=== PATIENT | female | born 1955 | race Caucasian/White ===

== ENCOUNTER → 2020-02-28 14:11 | Outpatient (CLI) | payer OTHER, SELFPAY ==
[2020-03-02 06:42] LABS: COVID19 Sendout Not Detected (Not Detect)
== END ==
PROVIDERS: Family Provider Family Medicine; PCP Family Medicine; Visit Provider Physician Assistant
DX: Z01.812 Encounter for preprocedural laboratory examination (principal)
CPT/HCPCS: 87635

== ENCOUNTER 2020-03-02 09:11 | Inpatient (IN) | payer OTHER, SELFPAY ==
[2020-02-24 09:55] VITALS: BMI 23.3
[2020-03-02] VITALS (19 sets, daily range): BP systolic 97–156; BP diastolic 62–110; PULSE 76–101; RESP 8–21; TEMP 36–37.1; O2SAT 92–100; BMI 23.8
--- NOTE | 2020-03-02 | DI.RAD.S_ITS ---
PROCEDURE: XR LUMBAR SPINE 2-3V INDICATIONS: L5-S1 TLIF TECHNIQUE: 2 views of the lumbar spine were acquired. COMPARISON: MRI, lumbar spine, 12/04/2019. FINDINGS: There is discectomy and posterior fusion at L5-S1. There is a disc prosthesis. Pedicular screws and fusion rods are in appropriate position. IMPRESSION: Discectomy and posterior fusion at L5-S1. Dictated by: Lew Glaser M.D. on 03/02/2020 at 13:54 Approved by: Lew Glaser M.D. on 03/02/2020 at 13:55
--- NOTE | 2020-03-02 09:52 | PM.PREOP ---
Pre-operative Note COVID-19 COVID-19 status: Negative Result date/Date tested (Pos, Neg/Pending): 02/28/20 Interval Note History & Physical reviewed/Exam performed by Physician: Yes Changes to H&P: No
[2020-03-02] MEDS: LACTATED RINGERS 1,000 ML 42 ML IV (09:55)
[2020-03-02] MEDS: ACETAMINOPHEN 325 MG TABLET 975 MG PO (10:36)
[2020-03-02] MEDS: CLINDAMYCIN 600 MG/50 ML PIGGYBACK 50 MG IV ×2 (10:52→18:50)
--- NOTE | 2020-03-02 11:23 | SUR.OPER ---
Prone on spine table, head in foam head support, padded chest and pelvic supports, gel pad at knees, lower legs supported by pillows; nipples, genitalia and toes free of pressure, arms secured on foam padded arm boards at <90 degrees abduction. Tape over blanket at thigh secured to table.
[2020-03-02] MEDS: BUPIVACAINE 0.5% (PF) 20 ML, BUPIVACAINE LIPOSOME 266 MG INJ (11:30)
[2020-03-02] MEDS: THROMBIN (RECOMBINANT) 5,000 UNIT VIAL 5000 UNIT TOP (11:30)
[2020-03-02] MEDS: SODIUM CHLORIDE 0.9% 1,000 ML, GENTAMICIN 80 MG IRR (11:31)
[2020-03-02] MEDS: VANCOMYCIN 1,000 MG VIAL 1000 MG TOP (11:31)
--- NOTE | 2020-03-02 12:26 | PC.NURSE ---
Day shift: Pt not on AC unit at this time.
--- NOTE | 2020-03-02 12:45 | PM.OP.1 ---
Operative Date/Time/Diagnoses Date of procedure: 03/02/20 Time of procedure: 12:45 Pre-op diagnosis: Lumbar stenosis with radiculopathy History of lumbar fusion Post-op diagnosis: same Procedure & Clinicians Procedure: L5-S1 TLIF (posterior/posterior interbody fusion) with cage L5-S1 screws Removal of old L4-5 screws Iliac crest bone graft aspirate L5-S1 laminectomy Use of microscope Same procedure as scheduled: Yes Indications: [age] year old female with intractable pain from stenosis. They had failed conservative management and requested operative intervention. Risks and benefits of surgery were discussed and appropriate consents were obtained. Surgeon: Deion Holley Provider Network Manager: Marleny Francois Anesthesia Type: General Operative Notes Findings: None Closure Type: primary Specimen(s): none sent Prosthetic devices, grafts, tissues, transplants, or devices: NuVasive MAS Reline screws globus rise cage Applied: catheter Estimated Blood Loss (mL): 20 Procedure in detail: The patient was brought to the operating room and intubated on the table. A time-out was performed. They were then rolled over to the well-padded Marquis table in the prone position. Preoperative antibiotics were given. The back was prepped and draped in the standard sterile fashion. Using fluoroscopy, a 4 cm longitudinal incision was made to the well-marked left of the midline. We used Bovie to come down to and split the lumbodorsal fascia. We exposed her old screws at L4 and L5 and then removed them. They were well fixed with no loosening. Using fluoroscopy and monitoring, we then percutaneously placed Jamshidi needles down the pedicles of L5 and S1 on the left side. These were changed out to guidewires and then we tapped and then placed the NuVasive MAS Reline screw shanks. We went up a size and used a 7.5 screw at L5, they were 6.5 mm screws at the rest. We then opened up the retractors and used Bovie to clear up the posterolateral gutter as well as medially along the lamina to the spinous processes. A bur was used to decorticate the sacral ala and the transverse process and bony fusion mass at L5. We brought in the microscope. Using a combination of bur and Kerrison rongeurs, a laminectomy was performed from the left side. We cleared over past the midline and carefully depressed the dura until we were able to decompress the opposite side. We cleared out the neural foramen, requiring a facetectomy to adequately open this up. We then began the TLIF prep. We carefully cleaned up the remainder of the foramen until we could easily retract the exiting root as well as clearing medially below the dura and expose the disc space. The disc was prepped with bipolar and then an annulotomy was performed. We performed a diskectomy using a combination of paddles, shai, pituitaries, and curettes. We distracted the disc using a paddle and locked the retractor in an open position. We then filled the disc space with Osteocel bone graft. We then placed the globus Rise cage under fluoroscopy and then filled this in with more bone graft. The distraction on the retractor was released to compress down. This completed the posterior interbody fusion portion of the TLIF at L5-S1. We then placed the screw heads, ankita, and locked down the set screws. The wound was copiously irrigated. A small stab incision was made over the PSIS. We used a Jamshidi needle to aspirate several mL of bone marrow from the pelvis. This was mixed with the remaining Osteocel and combined with all of the locally harvested bone graft and placed in the posterolateral gutter for the posterior fusion of the TLIF at L5-S1. The muscle fascia was closed. The epidural catheter was then injected without resistance and the catheter was pulled. We then went to the opposite side. Again using fluoroscopy, a 3 cm incision was made and Bovie was used to come down to split the fascia. Using neural monitoring and fluoroscopy, Jamshidi needles were advanced down the pedicles of L5 and S1 on the right side. These were switched over guidewires, tapped, and screws placed. We then placed a ankita and locked the set screws on this side. The wound was irrigated. The fascia was closed. Vancomycin powder was placed in the wounds. The superficial and skin were closed. A sterile dressing was placed. The patient was then rolled over extubated and brought to recovery room without complications. Complications: none Post-operative Condition: stable Disposition: PACU Plan for aftercare: Up with physical therapy. Anticipate 2-3 days in the hospital.
--- NOTE | 2020-03-02 13:01 | P.OP_ITS ---
Operative Date/Time/Diagnoses Date of procedure: 03/02/20 Time of procedure: 13:30 Pre-op diagnosis: Severe right knee OA Post-op diagnosis: same Procedure & Clinicians Procedure: Right total knee arthroplasty Same procedure as scheduled: Yes Indications: The patient has had progressively worsening right knee pain with radiographic changes consistent with arthritis. Non-operative management has failed and the patient has requested total knee replacement. The risks, benefits and alternatives to surgery were discussed with the patient prior to proceeding. Risks discussed included, but were not limited to, failure to relieve pain, stiffness, infection, nerve damage, deep venous thrombosis, pulmonary embolism, stroke, coma, heart attack, permanent paralysis and , as well as the potential need for eventual revision of the prosthetic. Surgeon: Gracie Miller Valve Assembler: Aldo Carroll Anesthesia Type: General and Spinal Operative Notes Findings: Severe right knee OA, good stability, adequate bone Closure Type: primary Specimen(s): none sent Estimated Blood Loss (mL): 250 Blood products transfused: none Procedure in detail: The patient was seen in the pre-operative area, where the patient identified the right knee as the operative site and this was marked with my initials. The patient received pre-operative antibiotics, and was taken to the operating room and placed on the operative table in the supine position. After satisfactory anesthesia, a multimedia specialist out? was performed. The right leg was encircled with a tourniquet about the proximal thigh, and the leg was prepared from the toes to the tourniquet with ChloroPrep in the usual fashion and draped through sterile drapes. The leg was elevated and exsanguinated with Eschmark bandage and the tourniquet inflated to [250] mmHg pressure. The knee was approached through an approximately 18 cm incision centered over the patella and carried into the knee through a medial parapatellar arthrotomy. Portion of the medial and lateral meniscus was resected. Soft tissue was carefully mobilized around the patella the patella was measured with a caliper. Bone was resected from the patella and the patellar height was reconstituted with up an appropriate sized patellar component. For a cover was then placed on the patella. A small amount of additional medial and lateral meniscus was resected. The visionary guide fit well to the distal femur. It looked like an appropriate distal femoral cut and the cut was made without difficulty. The rotation was assessed and the appropriate size femoral guide was placed on the distal femur and finishing cuts were made. There is no evidence of notching. The anterior, posterior and chamfer cuts were then made. The posterior osteophytes and soft tissues were then removed. The posterior capsule was injected with part of a mixture of 60 ml 0.25% Marcaine mixed with 20 ml Exparel for post operative pain control. The remainder of this mixture was injected into the capsule and subcutaneous tissues during cement curing. The tibia was prepared and the visionaire guide fit well to the distal tibia. The rotation was assessed. The patient was placed in extension residual medial and lateral meniscus as well as any residual bone was carefully resected. [No] additional tibia was resected. Hemostasis was achieved especially posteriorly. Additional local was injected into the posterior capsule. The extension gap was assessed and additional releases for gap balancing were performed as necessary. It was checked with the gap family living educator. The femoral component was trial was placed and the notch was finished. Trial tibial and femoral components were then placed and the knee placed through a range of motion. Range of motion was [0-130], with good stability throughout the range. The trials were then removed, and the tibia was finished. The bone was prepared with pulsatile lavage, and dried with a sponge. Cement was applied and the final prosthetics placed. Excess cement was removed during and after cement curing. A brief Betadine soak was performed. After confirming there was no extruded cement posteriorly, the final tibial insert was placed. The knee was copiously irrigated and the tourniquet deflated. Hemostasis was obtained with the [Aquamantys system]. A drain was placed and brought out superolaterally. The capsule was closed with interrupted # 1 black braided suture. The subcutaneous layer was closed with barbed sutures, and the skin with a running 3-0 V-Lock suture and Surgical glue. An Aquacel Ag dressing was applied and the patient was taken to recovery having tolerated the procedure well. Complications: none Post-operative Condition: stable Disposition: Acute Care Plan for aftercare: The patient will be maintained on a standard total knee replacement protocol with weight bearing as tolerated. The patient will receive aspirin and sequential compression devices for DVT prophylaxis. The patient will be discharged home when safe for the home environment.
--- NOTE | 2020-03-02 13:01 | PM.PREOP ---
Pre-operative Note COVID-19 COVID-19 status: Negative Interval Note History & Physical reviewed/Exam performed by Physician: No Changes to H&P: No
[2020-03-02] MEDS: LORazepam 2 MG/ML INJ 0.5 MG IV ×2 (13:09→14:16)
[2020-03-02] MEDS: hydrOXYzine 50 MG/ML INJ 25 MG IM (13:09)
[2020-03-02] MEDS: HYDROMORPHONE 2 MG INJ IV ×2 (13:17→13:26)
--- NOTE | 2020-03-02 14:12 | SUR.PHASEI ---
report called to Viki
[2020-03-02] MEDS: OXYCODONE IR 5 MG TABLET PO (14:18)
--- NOTE | 2020-03-02 14:18 | SUR.PHASEI ---
Patient teary, saying I can't do this. Medicated with Lorazepam and Oxycodone. Repositioned, ice pack applied. Will continue to monitor.
--- NOTE | 2020-03-02 14:25 | SUR.PHASEI ---
patient resting calmly, eyes closed.
--- NOTE | 2020-03-02 14:44 | PC.NURSE ---
Day shift: Pt on AC unit from PACU at approx 1435. Pt is in obvious pain and discomfort. Pt medicated for pain per MAR in PACU both IV and oral. VS WNL. Dressing is CDI. Pt does have some redness on her upper chest from position during surgery (per COLLAR CLOSER LOCKSTITCH). SCD's in place. Willett is patent. Emptied approx 1200ml clear yellow just now. Placed on cont O2 monitor because of the amount of pain meds Pt has had. Oriented to room and call light. Bed alarm is on and call light in reach.
--- NOTE | 2020-03-02 14:50 | SUR.PHASEI ---
Patient transferred to the floor with belongings bag. IV saline locked. Dressing checked with RN. Patient moving arms and legs independently. Awake and chatting during transfer. Report given to Viki. vS stable.
--- NOTE | 2020-03-02 15:12 | SUR.OPER ---
PT. has some redness on her buttocks; observed after positioning patient in prone position on spine table.
[2020-03-02] MEDS: PROMETHAZINE 25 MG TABLET PO ×3 (15:45→21:01)
[2020-03-02] MEDS: OXYCODONE IR 10 MG TABLET PO (15:46)
[2020-03-02] MEDS: ALPRAZolam 0.25 MG TABLET PO (15:46)
[2020-03-02] MEDS: BACLOFEN 10 MG TABLET PO ×2 (15:46→21:01)
[2020-03-02] MEDS: HYDROMORPHONE 0.5 MG INJ IV ×3 (15:47→21:01)
[2020-03-02] MEDS: LACTATED RINGERS 1,000 ML 125 ML IV ×2 (15:50→23:39)
[2020-03-02] MEDS: OXYCODONE IR 5 MG TABLET 15 MG PO ×2 (18:49→23:39)
--- NOTE | 2020-03-02 19:00 | PC.NURSE ---
1844 - Called to patient room by RN, Bibi. She reports that the patient is having pain control issues, is having some periods of confusion and is receiving pain medication as ordered. However, Bibi is concerned that the patient had medication in her purse and in confusion may possibly take addition medicines. Bibi reports an attempt to review medication, but the patient clutched her purse next to her and declined. I approached the patient to educate her to hospital policy on the need to have medications locked. The patient is tearful and agitated. She is expressing that her pain is not controlled. She states that no medication where given post operatively, and states I can feel everything. The patient also made a confused statement about being transferred post operatively to the ER where they promised me diluadid, but that (expletive) nurse wouldn't give it to me. The patient was eventually agreeable to provide her medications out of her purse, which were sent to pharmacy. She continued to be tearful. I reviewed her pain medications and dose times, showing her to the times Bibi had written on the patient dry erase board. Bibi was obtaining currently available meds at this time. The patient reported her pain as [address] and [address]. Holley promised it wouldn't be like this, this time. Attempted to provide reassurance that efforts were being made to control her pain. The patient then stated that she didn't want to talk with me any further. I exited the room per the patient request.
[2020-03-02] MEDS: DOCUSATE 100 MG CAPSULE PO (21:00)
[2020-03-02] MEDS: BISACODYL 5 MG TABLET 15 MG PO (21:00)
[2020-03-02] MEDS: SIMVASTATIN 40 MG TABLET PO (21:01)
[2020-03-02] MEDS: ALPRAZolam 0.5 MG TABLET PO (21:01)
[2020-03-02] MEDS: SENNOSIDES 8.6 MG TABLET 17.2 MG PO (21:01)
[2020-03-02] MEDS: FLUTICASONE 120 SPRAY/16 GM SPRAY.SUSP NASAL (21:02)
[2020-03-02] MEDS: diphenhydrAMINE 25 MG TABLET 50 MG PO (23:48)
[2020-03-03] MEDS: HYDROMORPHONE 0.5 MG INJ IV ×6 (00:10→07:44)
--- NOTE | 2020-03-03 03:00 | PC.NURSE ---
Addendum entered by Faith Houston R.N. 03/03/20 04:40: 0430 - pt's dressing had become damp from an ice pack. Pt pulled dressing off stating, I told you this would happen, I should never have had an ice pack. Dressing replaced w/coversite. While moving pt, she was reminded to log roll and move slowly. Pt became agitated while she was having her bedding adjusted and abruptly jerked herself into an upright position. When reminded again to move carefully, the patient stated, I'm fine! I know how to move. Original Note: Greeted pt at start of shift, pt pleasant and conversant. States pain is around an 8. Allowed skin check w/Senia (charge nurse) - pt cooperative. Within half an hour, pt was tearful, agitated and anxious - requesting pain medication. 15mg of Oxycodone was given. Within 15 minutes pt was crying out, increasingly agitated and angry stating her pain was not being addressed and that she needed medication for nausea. Pt stated that she was not currently nauseous, but, always gets sick when I get pain medication. I should have orders for Promethazine, don't give me that other stuff, it's like water. It was explained that she had already received a dose of nausea medication and that I would bring her IV Dilaudid. Upon giving her IV pain medication, the patient continued to complain loudly, stating, I was told it wouldn't be this way again. This is supposed to be a good hospital and everyone is ignoring me. Pt has not had an observed moment of nausea or vomiting. At this point this RN had been in the patients room multiple times along with visits from the charge nurse and the DIFFERENTIAL REPAIRER. The patient also complained that she couldn't find her Biotine, stating that, someone probably took it or threw it away and you owe me 15 dollars because it's gone. This RN and the DIFFERENTIAL REPAIRER looked throughout the room and couldn't find her bottle of Biotine.
[2020-03-03] MEDS: CLINDAMYCIN 600 MG/50 ML PIGGYBACK 50 MG IV (03:14)
[2020-03-03] MEDS: OXYCODONE IR 5 MG TABLET 15 MG PO ×6 (03:22→23:03)
[2020-03-03 04:50] VITALS: BP 123/82; PULSE 79; RESP 16; TEMP 36.8; O2SAT 97
[2020-03-03] MEDS: SUMAtriptan 25 MG TABLET 100 MG PO (04:56)
[2020-03-03] MEDS: ACETAMINOPHEN 325 MG TABLET 975 MG PO ×2 (04:58→10:49)
[2020-03-03] MEDS: PANTOPRAZOLE 40 MG TABLET PO (06:29)
[2020-03-03] MEDS: LEVOTHYROXINE 125 MCG TABLET PO (06:29)
[2020-03-03 06:47] LABS: Hematocrit 26.8 % (36-46)
[2020-03-03] MEDS: PROMETHAZINE 25 MG TABLET PO ×4 (07:41→21:07)
[2020-03-03] MEDS: BACLOFEN 10 MG TABLET PO ×3 (07:41→21:07)
[2020-03-03] MEDS: ASPIRIN 325 MG TABLET PO (07:41)
[2020-03-03] MEDS: FUROSEMIDE 20 MG TABLET PO (07:42)
[2020-03-03] MEDS: POTASSIUM CHLORIDE 10 MEQ TAB PO (07:42)
[2020-03-03] MEDS: LORATADINE 10 MG TABLET PO (07:42)
[2020-03-03] MEDS: SPIRONOLACTONE 25 MG TABLET PO (07:42)
[2020-03-03] MEDS: MAGNESIUM OXIDE 400 MG TABLET 800 MG PO (07:42)
[2020-03-03] MEDS: LOSARTAN 50 MG TABLET 100 MG PO (07:42)
--- NOTE | 2020-03-03 07:42 | PM.PNPO.1 ---
Subjective Subjective Date Patient Seen: 03/03/20 Time Patient Seen: 07:42 Interval history: She had a very rough night. She got behind on her pain yesterday and was up all night with IV supplementation and finally her pain is under moderate control. Pain is about a 7 to 8/10. All across the back. Her dressing had to get changed earlier as her ice pack that soak through everything. Exam Vital Signs (past 8 hours): - 03/03/20 04:50 Temperature 98.3 F Pulse Rate 79 Respiratory Rate 16 Blood Pressure 123/82 Pulse Oximetry 97 Oxygen Delivery Method Nasal Cannula Oxygen Flow Rate 0 Const Orientation: alert and oriented x3 Back/Spine/Pelvis Other: CDI. 5/5 motor both lower extremities. Objective Labs Result Diagrams: 03/03/20 06:38 Labs: Laboratory Results - last 24 hr 03/03/20 06:38 Hgb 9.0 L Hct 26.8 L Assessment & Plan Post-op Postoperative Procedures: Procedures Operation Date: 03/02/20 10:45 Actual Procedures Side Surgeon p L5-S1 laminectomy & instrumented fusion (TLIF) w/bone graft,removal old L45 screws Deion Holley MD she had a rough night but is headed in the right direction at this point. She reports that she has done well with oral Dilaudid in the past and I am going to add this for pain control now. With her preoperative narcotic tolerance and significant anxiety and pain, she will be an inpatient for at least 2 more days prior to going home Quality VTE Deep Vein Thrombosis/Pulmonary Embolism Present on Admission: No
[2020-03-03] MEDS: FLUTICASONE 120 SPRAY/16 GM SPRAY.SUSP NASAL ×2 (07:43→21:08)
[2020-03-03] MEDS: DOCUSATE 100 MG CAPSULE PO ×2 (07:43→21:08)
[2020-03-03] MEDS: CHOLECALCIFEROL (VITAMIN D3) 5,000 UNIT TABLET 10000 UNIT PO (07:43)
[2020-03-03 07:57] VITALS: BP 144/96; PULSE 77; RESP 20; TEMP 37.2; O2SAT 95
[2020-03-03] MEDS: ALPRAZolam 0.25 MG TABLET PO ×2 (07:57→15:02)
[2020-03-03] MEDS: ESTROGENS, CONJUGATED 0.625 MG TABLET 1.25 MG PO (08:04)
[2020-03-03] MEDS: HYDROMORPHONE 4 MG TABLET PO ×4 (08:57→21:06)
--- NOTE | 2020-03-03 10:34 | PC.NURSE ---
Addendum entered by Arianne Main R.N. 03/03/20 12:12: Pt reports 9/10 pain to lower back after working with PT. Pt states that her pain level decreased to 6/10 for a short period of time then increased to 7/10. Stays around 7-8/10. Addendum entered by Arianne Main R.N. 03/03/20 10:56: Reinforced to pt she needs to slow down, think about what shes doing before taking the action, the staff has the best interests for taking care of her. Pt states it probably wasn't that girls fault, it was probably mine. Support and encouragement provided. Original Note: Day Shift- This Am, pt cooperative with care, very anxious, teary while talking with Dr. Holley this AM around 0730. Very talkative, can be re-directed to conversation with this write but needing to be interrupted most times to get back on track of topic at hand. Pt refused to demonstrate incentive spirometer use, this RN instructed pt on benefits and risks of use while in the hospital and at home. LLE weaker compared to RLE while performing leg lifts in bed. Denies numbness or tingling. Foot SCD's on to Bilateral feet. Pt able to demonstrate ankle waves. Pt reports pain 7-8/10 to across lower back area. Pain management plan discussed at length, Dr. Holley added prn pain med this AM. PRn Dilaudid po given X1, PRN Oxycodone given X1, and PRN Dilaudid IV X1. Pt states get nauseated with pain meds, pt is on scheduled Phenergan po per Dr's order. At 1030, DATA INTEGRITY CONSULTANT assisted pt to bedpan, pt did not ask for assist to get off bedpan, pt removed bedpan from underneath her by herself. DATA INTEGRITY CONSULTANT checked in on pt and was explaining to not twist and there are certain post op precautions in place in order to prevent injury to surgical site area. According to DATA INTEGRITY CONSULTANT, pt moved herself in bed, was twisting at waist level and did not want to further adjust herself.
[2020-03-03 11:10] VITALS: BP 144/101; PULSE 82; RESP 20; TEMP 36.6; O2SAT 93
--- NOTE | 2020-03-03 11:14 | PT.IIE ---
Current Diagnoses Spinal stenosis, lumbar region with neurogenic claudication (03/02/20) Strain of muscle, fascia and tendon of lower back, subsequent encounter (03/02/20) Arthrodesis status (03/02/20) Surgery Performed Operation Date: 03/02/20 10:45 Actual Procedures p L5-S1 laminectomy & instrumented fusion (TLIF) w/bone graft,removal old L45 screws - Deion Holley MD Surgical History (Last Updated 02/24/20 @ 10:48 by Aminta Shannon RN) Anesthesia (Acute) H/O ventral hernia repair (Acute) History of appendectomy (Acute) History of arthroplasty of right knee (Acute 01/2019) History of bilateral salpingo-oophorectomy (Acute) History of section (Acute) History of cholecystectomy (Acute) History of colonoscopy (Acute) History of reduction mammoplasty (Acute) History of spinal surgery (Acute ~2015) History of tonsillectomy (Acute) History of total abdominal hysterectomy (Acute) Medical History (Last Updated 03/02/20 @ 10:31 by Carmen Byrd RN) ADHD (Acute) Allergies (Acute) Anemia (Acute) Ankle pain (Acute) Anxiety (Acute) Benign familial tremor (Acute) Cervical somatic dysfunction (Acute) Cervical spine disease (Acute ~2014) Chicken pox (Acute) Chronic lumbar pain (Acute) Chronic neck pain (Acute) Cranial somatic dysfunction (Acute) Depression (Acute) Diverticular disease (Acute) Dry skin (Acute) Fibromyalgia (Acute) Glaucoma (Acute) Headache (Acute) History of falling (Acute) Hyperlipidemia (Acute) Hypertension (Acute) Irritable bowel syndrome (Acute) Kidney disease (Acute) Measles (Acute) Migraine headache (Acute) Osteoarthritis (Acute) Pelvic somatic dysfunction (Acute) Postnasal drip (Acute) Recurrent sinusitis (Acute) Recurrent sinusitis (Acute) Rheumatoid arthritis (Acute) Segmental and somatic dysfunction of abdomen and other regions (Acute) Segmental and somatic dysfunction of lumbar region (Acute) Segmental and somatic dysfunction of sacral region (Acute) Segmental and somatic dysfunction of thoracic region (Acute) Segmental dysfunction of rib cage (Acute) Vertigo (Acute) Vision disorder (Acute) Physical Therapy Inpatient Evaluation/Re-Eval M1 PT/OT-IP Prior Functional Status Start: 03/03/20 12:14 Freq: NEEDED Status: Active Protocol: Document 03/03/20 11:14 AB (Rec: 03/03/20 12:39 AB [id number]) Medical Review Prior Functional Status Medical History Reviewed Yes Communication able to make needs known Mobility and Gait pt stated that she is modified independent with all mobilities and ambulation without AD Social History Household Members significant other Living Arrangements Apartment/Condo Number of Floors (Floors) One Floor Number of Stairs To Enter/Railing? no steps to enter Home Environment Standard Height Toilet,Tub/ Shower Home Equipment Front Wheel Walker,Shower Seat with Backrest,Grab Bars In Shower Additional Social History Comment pt has a toilet safety frame M2 PT-IP Current Condition Start: 03/03/20 12:14 Freq: NEEDED Status: Active Protocol: Document 03/03/20 11:14 AB (Rec: 03/03/20 12:39 AB [id number]) Physical Therapy Current Condition Current Condition Evaluation Date 03/03/20 Treatment Diagnosis s/p L5S1 TLIF/lami; difficulty in walking Onset Date 03/02/20 Precautions Lumbar Precautions Log Roll,No Twisting,Limit Bending,Lifting Restriction of 10 lbs,Gait Belt above Incisional Area M3 PT-IP Subjective Start: 03/03/20 12:14 Freq: NEEDED Status: Active Protocol: Document 03/03/20 11:14 AB (Rec: 03/03/20 12:39 AB [id number]) Subjective Physical Therapy Visit Type Type Initial Evaluation Visit Start Time 11:14 Visit Stop Time 12:04 Total Visit Minutes 50 Number of FILM AND VIDEO EDITOR Visits 0 Physical Therapy Visit Comments Patient Comments pt initially refused PT and c/ o back pain. nurse gave pt pain meds. PT checked on pt after ~30 min. pt agreed to do PT but towards the end of PT session, stated that she does not want to do PT and wants to go back to bed. Therapy Pain Assessment Pain When Pain Assessed At Rest Pain Present Pain Present Pain Reported Location back Intensity 7 Scale Used Numeric (0 - 10) Pain Management Techniques Distraction,Re-positioning, Timing of Activity with Medications M4 PT-IP Mobility and Gait Start: 03/03/20 12:14 Freq: NEEDED Status: Active Protocol: Document 03/03/20 11:14 AB (Rec: 03/03/20 12:39 AB [id number]) PT-Bed Mobility Assessment Rolling Type of Rolling Log Rolling Level of Assist Maximal Assistance,1 Person Assistance Supine to Sit Supine to Sit Maximum Assistance,1 Person Assistance Sit to Supine Sit to Supine Standby Assistance,1 Person Assistance PT-Transfer Assessment Sit to and From Stand Sit to and from Stand Contact Guard Assistance Equipment Transfer Assistive Device Gait Belt,Front Wheeled Walker Orthotic/Prosthetic Devices or Brace: No Transfers Transfer Destination Bed,Chair Transfer Technique ambulated using FWW Transfer Ability Level of Assist Contact Guard Assistance, Minimal Assistance,1 Person Assistance,Use of Upper Extremities Comments Mobility Comments reviewed back precautions and log roll bed mobility with pt and pt requires cues to recall . pt completed supine to sit max A and max cues. c/o increase back pain. was able to sit on EOB SBA. completed sit to stand CGA and ambulated in room ~ 25 ft using FWW CGA to min A. pt initially agreed to sit on chair. c/o increase back pain and stated that chair is not comfortable. initially agreed to stay up on the chair but keeps going on regarding her pain meds and her cold food. pt stated that she wants to go back to bed. PT was setting up pt's bed but pt just stood up without AD and stand pivot transfer to bed. pt is impulsive. pt completed sit to supine SBA but did not adhere to her back precaution. reminded pt on how to do log roll prior to execution but pt directs her own care and is getting agitated when instructed on log roll bed mobility. positioned pt in bed. call light and table placed within reach. Gait Assessment Gait Gait Assistance Required: Contact Guard Assist,Minimum Assistance Distance (Feet) 25 Able to Maintain Weight Bearing Status Yes During Gait Assistive Devices Assistive Device Gait Belt,Front Wheeled Walker Orthotic/Prosthetic Devices or Brace: No Gait Deviations General Gait Pattern Antalgic,Decreased Stride Length,Decreased Feet Clearance,Step-to Gait Factors Limiting Gait Function Factors Limiting Gait Function Decreased Activity Tolerance, Decreased Strength,Limited Range of Motion,Pain,Poor Balance,Poor Safety Awareness PT-Balance Assessment Sitting Balance and Reactions Static Sitting Balance Ability Good Dynamic Sitting Balance Ability Good Standing Balance and Reactions Static Standing Balance Ability Fair Dynamic Standing Balance Ability Fair Device Used using FWW M5 PT-IP Objective Assessments Start: 03/03/20 12:14 Freq: NEEDED Status: Active Protocol: Document 03/03/20 11:14 AB (Rec: 03/03/20 12:39 AB [id number]) Orientation Orientation/Cognition Level of Alertness Alert Orientation Name,Place,Situation Safety Awareness Decreased Safety Awareness Gross Range of Motion Lower Extremity ROM Assessment Within Functional Limits Strength Lower Extremity Strength Assessment Left Impaired Knee 3+/5 Muscle Tone Muscle Tone WNL Yes M6 PT-IP Treatment Start: 03/03/20 12:14 Freq: NEEDED Status: Active Protocol: Document 03/03/20 11:14 AB (Rec: 03/03/20 12:39 AB [id number]) Physical Therapy Treatment Education Education Provided Precautions,Weight Bearing Status,Post-Op Packet,Safety M7 PT-IP Assessment and Plan Start: 03/03/20 12:14 Freq: NEEDED Status: Active Protocol: Document 03/03/20 11:14 AB (Rec: 03/03/20 12:39 AB [id number]) PT Summary Assessment and Plan Potential Rehabilitation Potential Fair Status of Condition at Evaluation Evolving Summary Impairments Pain,ROM,Strength,Balance, Coordination,Sensation,Tone, Cognition,Bed Mobility, Transfers,Gait,Activity Tolerance Assessment Summary pt c/o increase pain on low back and tends to direct her own care. educated on precautions and safety and understood but is impulsive and get agitated when instructed. pt also gets distracted easily affecting safety awareness. pt plans to go home with her boyfriend to assist her. Goals Bed Mobility Goal Independent Transfer Goal Independent,Front Wheeled Walker Gait Goal Independent,Front Wheel Walker Gait Distance 150 Days to Meet Goals 5 Frequency of Treatment Frequency Of Treatment Twice a Day Treatment Plan Physical Therapy Treatment Plan Bed Mobility Training,Transfer Training,Gait Training, Therapeutic Exercise,Balance Retraining,Post Op Education, Discharge Planning,Hot or Cold Pack,Neuromuscular Re-ed, Coordination Retraining,Manual Therapy Recommendations To Nursing Amount of Assist Needed 1 Person Assist Discharge Recommendations PT Discharge Recommendations Home with Assistance Transportation Needs at Discharge Private Vehicle
--- NOTE | 2020-03-03 12:31 | CM.DANOTE ---
Patient is a 64 year old female who was admitted on 03/02/20 for TLIF. Pt has [facility] for insurance and his PCP is Dr. Judah Tristan. EMR was reviewed. Per Ortho , pt had surgery yesterday and has had pain management issues overnight and seems to be somewhat better managed with pain this morning but not ready for d/c yet. Pt with hx of anxiety, depression, PTSD. PT/OT ordered and pending. SW met bedside with pt and explained role and pt appears quite tearful and anxious and states that her pain causes her anxiety when not managed and she apologizes about coming across as cranky and upset. Difficult to keep pt on topic but redirectable. Pt confirms that her last back surgery was in 2017 here at [facility] and was able to d/c home with adult Dtr assist although in 2017 pt seemed to have her baseline of anxiety and impulsivity with some PT/OT concerns with following precautions. Pt states that her relationship with her adult Dtr has deteriorated but that she now has Sig Other that plans to provide transport and assist at d/c. Pt states she has used HH in the past but did not find it very helpful and states her plan is home with Sig Other assist and to continue her home PT exercises as she feels she can manage well when pain under control. Long hx of chronic pain and medication that she has created a good home routine for better management of pain. Plan: SW to follow closely after PT/OT initial eval and recommendations to determine if pt's plan of home with Sig Other assist is a safe option. Pt has hx of impulsivity and anxiety that contribute to potential d/c needs. MELANIE Milton Discharge Planning/Care Management CM Discharge Assessment Start: 03/03/20 12:29 Freq: Status: Active Protocol: Document 03/03/20 12:29 BF (Rec: 03/03/20 12:31 [id number]) Discharge Planning Assessment Assigned Package Dye Stand Loader MELANIE Workman DPOA/Assigned Designee Name none Advance Directives? No History Provided By Patient,Medical Record Has Patient been admitted in last 30 No days? Prior Living Arrangements Apartment/Condo Household Members significant other Type of transporation used prior to Relies on Others admit Independent with ADL's Yes: mostly Is patient alert and oriented? Yes Needs Assistance With Meal Prep,Home Chores / Shopping Caregiver for Another No Comment Pending PT/OT initial eval and recommendations Barriers to Discharge No Discharge Plan Home with Home Health Transportation Arrangement Sig Other plans to provide transport home at d/c. Additional Comment Waiting for PT/OT initial eval and recommendations Whiteboard Updated in Patient Room with Yes name and ext. # of Package Dye Stand Loader Review Status In Process Please Provide Date Initial DC 03/03/20 Assessment Was Performed Next Review Type Continued Stay Review Pre-Anesthesia Assessment Start: 02/24/20 09:55 Freq: Status: Complete Protocol: Document 02/24/20 09:55 CAB (Rec: 02/24/20 11:52 CAB [id number]) Pre-Anesthesia Assessment PAC Comment Pt with high anxiety, easily agitated when going over medications/allergies, I'm having a panic attack going over these. Patient Information Reviewed Via Phone Assessment Assessment Completed With Patient Diagnostic Results BMP/CMP,CBC,EKG Comment Outside Labs/EKG scanned to record-COVID screen @ Primary Care Provider Judah Tristan Medical Clearance Received Yes Seen Specialist in Last 12 Months Yes Specialist Seen Orthopedist,Other Comment PCP clearance scanned to record Primary Language [place] Islander Internal Sales Required No Height 157.48 cm Weight 58.06 kg Body Mass Index (BMI) 23.3 Hearing Ability Normal Visual Assist Glasses Dentition Type Teeth, Natural Present,Dental Implants Barriers to Learning Emotional Comment High anxiety Hx Anesthesia Reactions Yes: PONV Hx Family Anesthesia Reaction No Hx Malignant Hyperthermia No Hx Blood Transfusions Yes: 2009 r/t anemia Hx Blood Transfusion Reaction No Anesthesia Review Requested Yes: Reviewed prior to being scheduled Additional comment Anesthesia review scanned to record alcohol intake former Smoking Status Former smoker how long ago did patient quit smoking Quit 08/1999 Substance Use Type former substance user, marijuana Comment Advised not to smoke marijuana 24 hours prior, narcotic addiction 2009 Pain Present Pain Reported Musculoskeletal Symptoms Abnormal Gait,Back Pain, Difficulty Walking,Joint Pain, Neck Pain,Radiating Pain into Limb History of Falling (Recent or History of Yes ) Patient is completely paralyzed or No completely immobile Mental Status Oriented to own ability Is patient on oxygen? No Does patient have GARRIDO/SOB Yes: Occasional w/seasonal allergies Hx Sleep Apnea No Currently Taking a Beta Dipti No Hx Chest Pain No Hx SOB Yes: Occasional w/seasonal allergies Hx Syncope or Dizziness No Anti-Coagulant Therapy No Has a Legal Billing Clerk No Cardiac Testing No Hx Pacemaker/ICD No Pacemaker Rep Required? 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 Marital Status Single Lives With significant other Prior Living Arrangements Apartment/Condo Support System Significant Other Does the Patient Have Assistance After Yes Surgery Patient Discharge Plan Description Return Home Comment Pt advised 2 day length of stay per surgeon Feels Safe in Current Environment Yes Been Physically Hurt or Threatened By a No Person in Current Environment Do you have thoughts of harming yourself None or others? Are you currently considering suicide? No Do you have a plan to hurt yourself or No Plan others? Do You Have Any Spiritual Beliefs That No May Affect Your HC Choices? Do You Have Any Cultural Practices That No May Affect Your HC Choices? Comment Orthodox Who Can We Speak to About Patient's Care Family, friends Identifying Code for Release of Patient Declines to issue Information Health Care Proxy/Next of Kin Estelle (daughter) Health Care Proxy Emergency Contact Name Estelle (daughter) Nitish (S.0.) Emergency Contact Phone Number Estelle: [phone] Nitish: [phone] Advance Directives? No Power of Waiter/Waitress Captain No PAC Instructions Durable medical equipment, Medications to take/avoid, Nasal antibiotic,No ETOH/ petroleum product on skin DOS, NPO,Pre-surgical wash,Sturdy shoes/comfortable clothes,Do not bring valuables and remove jewelry
--- NOTE | 2020-03-03 13:56 | PT.IPTN ---
Current Diagnoses Spinal stenosis, lumbar region with neurogenic claudication (03/02/20) Strain of muscle, fascia and tendon of lower back, subsequent encounter (03/02/20) Arthrodesis status (03/02/20) Surgery Performed Operation Date: 03/02/20 10:45 Actual Procedures p L5-S1 laminectomy & instrumented fusion (TLIF) w/bone graft,removal old L45 screws - Deion Holley MD Physical Therapy Treatment Note M2 PT-IP Current Condition Start: 03/03/20 12:14 Freq: NEEDED Status: Active Protocol: Document 03/03/20 13:24 TP (Rec: 03/03/20 15:08 TP [id number]) Physical Therapy Current Condition Precautions Lumbar Precautions Log Roll,No Twisting,Limit Bending,Lifting Restriction of 10 lbs,Gait Belt above Incisional Area M3 PT-IP Subjective Start: 03/03/20 12:14 Freq: NEEDED Status: Active Protocol: Document 03/03/20 13:24 TP (Rec: 03/03/20 15:08 TP [id number]) Subjective Physical Therapy Visit Type Type Treatment Note Visit Start Time 13:24 Visit Stop Time 13:56 Total Visit Minutes 32 Notes Student PRIMITIVO Chowdhury supervised by PRIMITIVO Mccord Number of [employer] HELIC[employer] AIRCREWMAN Visits 1 Physical Therapy Visit Comments Patient Comments Pt agreeable to working with PT at this time. Therapy Pain Assessment Pain When Pain Assessed At Rest Pain Present Pain Present Pain Reported Location back Intensity 7 Scale Used Numeric (0 - 10) Pain Management Techniques Distraction,Re-positioning, Timing of Activity with Medications M4 PT-IP Mobility and Gait Start: 03/03/20 12:14 Freq: NEEDED Status: Active Protocol: Document 03/03/20 13:24 TP (Rec: 03/03/20 15:08 TP [id number]) PT-Bed Mobility Assessment Rolling Type of Rolling Log Rolling Level of Assist Standby Assistance Supine to Sit Supine to Sit Standby Assistance Sit to Supine Sit to Supine Minimal Assistance,1 Person Assistance Scooting Scooting to Edge of Bed Standby Assistance PT-Transfer Assessment Sit to and From Stand Sit to and from Stand Contact Guard Assistance Equipment Transfer Assistive Device Gait Belt,Front Wheeled Walker Orthotic/Prosthetic Devices or Brace: No Transfers Transfer Destination Bed Transfer Technique ambulated using FWW Transfer Ability Level of Assist Contact Guard Assistance, Minimal Assistance,1 Person Assistance,Use of Upper Extremities Comments Mobility Comments Pt reclined in bed upon arrival. Eventual recall of spinal precations 3/3 with time allowed to process. Pt impulsive and easily distracted. Continual redirection to task at hand. Log roll L SBA with verbal cues to maintain no twisting precaution. Sidelying to sit SBA, verbal cues needed for LE placement. Pt stood impulsively, grasping FWW with both hands. Stand to sit with verbal cues to reach hands back to EOB. Gait belt donned. Pt education for safe sit<>stand using a FWW. Pt demonstration of safe sit<> stand 2x with SBA, FWW. Pt ambulation into hallway and around nurse's station approximately 342' with FWW CGA with cues for shoulder depression. Narrow base reciprocating gait present. Pt returned to room and requested sitting in bed. Stand to sit performed with good recall for safe use of hands for support with one on FWW and one reaching back to stable surface. Sit to sidelying min A x1 to assist with BLE. Log roll to supine SBA with minimal verbal cues. B SCDs donned to feet and turned on. Pt's lunch was untouched, so reheated it per pt request. Call light and all other needs within reach. Bed alarm activated for safety . Pt's pain was 8/10 at the end of tx. Nurse notified of patient progress with improved ambulation distance and need for emptying catheter. Gait Assessment Gait Gait Assistance Required: Contact Guard Assist Distance (Feet) 342 Able to Maintain Weight Bearing Status Yes During Gait Assistive Devices Assistive Device Gait Belt,Front Wheeled Walker Orthotic/Prosthetic Devices or Brace: No Gait Deviations General Gait Pattern Antalgic,Decreased Stride Length,Decreased Feet Clearance Factors Limiting Gait Function Factors Limiting Gait Function Decreased Activity Tolerance, Decreased Strength,Limited Range of Motion,Pain,Poor Balance,Poor Safety Awareness Comments Gait Comments See mobility comments. Pt ambulation into hallway 342' with FWW CGA. Stair Climbing Assessment Comments Stair Climbing Comments Not assessed. No stairs at home. PT-Balance Assessment Sitting Balance and Reactions Static Sitting Balance Ability Good Dynamic Sitting Balance Ability Good Standing Balance and Reactions Static Standing Balance Ability Fair Dynamic Standing Balance Ability Fair Device Used using FWW M5 PT-IP Objective Assessments Start: 03/03/20 12:14 Freq: NEEDED Status: Active Protocol: Document 03/03/20 11:14 AB (Rec: 03/03/20 12:39 AB [id number]) Orientation Orientation/Cognition Level of Alertness Alert Orientation Name,Place,Situation Safety Awareness Decreased Safety Awareness Gross Range of Motion Lower Extremity ROM Assessment Within Functional Limits Strength Lower Extremity Strength Assessment Left Impaired Knee 3+/5 Muscle Tone Muscle Tone WNL Yes M6 PT-IP Treatment Start: 03/03/20 12:14 Freq: NEEDED Status: Active Protocol: Document 03/03/20 13:24 TP (Rec: 03/03/20 15:08 TP [id number]) Physical Therapy Treatment Education Education Provided Precautions,Safety M7 PT-IP Assessment and Plan Start: 03/03/20 12:14 Freq: NEEDED Status: Active Protocol: Document 03/03/20 13:24 TP (Rec: 03/03/20 15:08 TP [id number]) PT Summary Assessment and Plan Potential Rehabilitation Potential Fair Status of Condition at Evaluation Evolving Summary Impairments Pain,ROM,Strength,Balance, Coordination,Sensation,Tone, Cognition,Bed Mobility, Transfers,Gait,Activity Tolerance Assessment Summary Ambulation distance improved from 25' this morning to 342' this tx. Pt c/o pain increased with activity, but recognizes the need to get up and moving . Pt is easily distracted and very impulsive. Contstant redirection needed. Pt responds well to education and demonstration prior to performing a movement or activity. Recommending caregiver training to happen tomorrow with pt's boyfriend between [id number], to assist in maintaing spinal precautions during mobility for safety upon return home. Goals Bed Mobility Goal Independent Transfer Goal Independent,Front Wheeled Walker Gait Goal Independent,Front Wheel Walker Gait Distance 150 Days to Meet Goals 5 Frequency of Treatment Frequency Of Treatment Twice a Day Treatment Plan Physical Therapy Treatment Plan Bed Mobility Training,Transfer Training,Gait Training, Therapeutic Exercise,Balance Retraining,Post Op Education, Discharge Planning,Hot or Cold Pack,Neuromuscular Re-ed, Coordination Retraining,Manual Therapy Other Recommendations and Next Treatment Caregiver training for pt's Focus boyfriend. Recommendations To Nursing Amount of Assist Needed 1 Person Assist Discharge Recommendations PT Discharge Recommendations Home with Assistance Transportation Needs at Discharge Private Vehicle
--- NOTE | 2020-03-03 15:04 | OT.IP.EVAL ---
Current Diagnoses Spinal stenosis, lumbar region with neurogenic claudication (03/02/20) Strain of muscle, fascia and tendon of lower back, subsequent encounter (03/02/20) Arthrodesis status (03/02/20) Surgery Performed Operation Date: 03/02/20 10:45 Actual Procedures p L5-S1 laminectomy & instrumented fusion (TLIF) w/bone graft,removal old L45 screws - Deion Holley MD Past Medical History (Last Updated 03/02/20 @ 10:31 by Carmen Byrd RN) ADHD (Acute) Allergies (Acute) Anemia (Acute) Ankle pain (Acute) Anxiety (Acute) Benign familial tremor (Acute) Cervical somatic dysfunction (Acute) Cervical spine disease (Acute ~2014) Chicken pox (Acute) Chronic lumbar pain (Acute) Chronic neck pain (Acute) Cranial somatic dysfunction (Acute) Depression (Acute) Diverticular disease (Acute) Dry skin (Acute) Fibromyalgia (Acute) Glaucoma (Acute) Headache (Acute) History of falling (Acute) Hyperlipidemia (Acute) Hypertension (Acute) Irritable bowel syndrome (Acute) Kidney disease (Acute) Measles (Acute) Migraine headache (Acute) Osteoarthritis (Acute) Pelvic somatic dysfunction (Acute) Postnasal drip (Acute) Recurrent sinusitis (Acute) Recurrent sinusitis (Acute) Rheumatoid arthritis (Acute) Segmental and somatic dysfunction of abdomen and other regions (Acute) Segmental and somatic dysfunction of lumbar region (Acute) Segmental and somatic dysfunction of sacral region (Acute) Segmental and somatic dysfunction of thoracic region (Acute) Segmental dysfunction of rib cage (Acute) Vertigo (Acute) Vision disorder (Acute) Surgical History (Last Updated 02/24/20 @ 10:48 by Aminta Shannon RN) Anesthesia (Acute) H/O ventral hernia repair (Acute) History of appendectomy (Acute) History of arthroplasty of right knee (Acute 01/2019) History of bilateral salpingo-oophorectomy (Acute) History of section (Acute) History of cholecystectomy (Acute) History of colonoscopy (Acute) History of reduction mammoplasty (Acute) History of spinal surgery (Acute ~2015) History of tonsillectomy (Acute) History of total abdominal hysterectomy (Acute) Occupational Therapy Inpatient Evaluation/Re-Eval M1 PT/OT-IP Prior Functional Status Start: 03/03/20 16:54 Freq: NEEDED Status: Active Protocol: Document 03/03/20 14:32 [facility] (Rec: 03/03/20 17:15 [facility] [id number]) Medical Review Prior Functional Status Medical History Reviewed Yes Communication able to make needs known Mobility and Gait pt stated that she is modified independent with all mobilities and ambulation without AD Activities of Daily Living and IADL's Pt states completely independent for all ADL and IADL needs. Social History Household Members significant other Living Arrangements Apartment/Condo Number of Floors (Floors) One Floor Number of Stairs To Enter/Railing? no steps to enter Home Environment Standard Height Toilet,Tub/ Shower Home Equipment Front Wheel Walker,Shower Seat with Backrest,Grab Bars In Shower, automatic dry starch operator long handled shoe horn,hand held shower spray Additional Social History Comment pt has a toilet safety frame M2 OT-IP Current Condition Start: 03/03/20 16:54 Freq: Status: Active Protocol: Document 03/03/20 14:32 [facility] (Rec: 03/03/20 17:15 [facility] [id number]) Occupational Therapy Current Condition Current Condition Evaluation Date 03/03/20 Treatment Diagnosis Lumbar stenosis with radiculopathy s/p L5-S1 TLIF Diagnosis Onset Date 03/02/20 Post Operative Precautions Lumbar Precautions Log Roll,No Twisting,Limit Bending,Lifting Restriction of 10 lbs,Gait Belt above Incisional Area M3 OT- IP Subjective and Pain Start: 03/03/20 16:54 Freq: Status: Active Protocol: Document 03/03/20 14:32 [facility] (Rec: 03/03/20 17:15 [facility] [id number]) OT- Subjective Occupational Therapy Visit Type Type Initial Evaluation Visit Start Time 14:32 Visit Stop Time 15:04 Total Visit Minutes 32 Occupational Therapy Visit Comments Patient Comments Pt in bed and agreed to get up for OT eval as wanting to do grooming needs. Patient/Caregiver Goals To go home with significant other. OT Pain Assessment Pain When Pain Assessed During Mobility Pain Present Pain Present Pain Reported Location back Intensity 4 Scale Used Numeric (0 - 10) M4 OT- IP ADL's Start: 03/03/20 16:54 Freq: Status: Active Protocol: Document 03/03/20 14:32 [facility] (Rec: 03/03/20 17:15 [facility] [id number]) OT [id number] Comments OT Self-Feeding Comments Not at meal time. OT ADL-Grooming General Evaluation Grooming Ability Standby Assistance Areas Needing Assistance Retrieving/Set-up of Grooming Items Comments OT Grooming Comments Initial vc to lean at hips to spit or spit into a cup to follow back precautions. OT ADL-Oral Care General Eval Oral Care Ability Independent OT ADL-Dressing General Eval Lower Body Dressing Ability Standby Assistance Comments OT Dressing Comments Pt able to comfortable cross her legs over to rebecca/doff her socks. Pt states has a automatic dry starch operator and long handled shoe horn at home and significant other to assist as needed. OT ADL-Toileting General Evaluation Toileting Ability Standby Assistance Comments OT Toileting Comments Pt not having to use the toilet as still having maravilla in place. Able to sit on the toilet and able to reach appropriately and with good safety for back precautions needs. Suggested to pt to wear pads and also may be easier to stand and wipe. Pt able to stand and wipe with good safety. Pt has a toilet safety frame at home to assist . OT ADL-Bathing Comments OT Bathing Comments Pt not wanting to shower. Pt states has a shower chair and back and s.o to assist. M5 OT- IP IADL's Start: 03/03/20 16:54 Freq: Status: Active Protocol: Document 03/03/20 14:32 [facility] (Rec: 03/03/20 17:15 [facility] [id number]) OT-Instrumental Activities of Daily Living Home Safety Awareness Home Safety Comments Pt a times a little confused, decreased safety awareness, impulsive and unpredictable and best at this time to have s.o assist for all ADl and IADl needs. Meal Preparation Meal Preparation Caregiver Provides Assist Resident Surgeon Resident Surgeon Caregiver Provides Assist Driving Driving Caregiver Provides Assist M6 OT- IP Functional Cognition Start: 03/03/20 16:54 Freq: Status: Active Protocol: Document 03/03/20 14:32 [facility] (Rec: 03/03/20 17:15 [facility] [id number]) Cognitive Factors Limiting Selfcare Function Cognitive Ability Level of Alertness Alert,Confusional State Patient Orientation Name,Place,Situation Attention Span Ability Capable of Focused Attention, Capable of Sustained Attention Ability to Follow Commands Able to Follow One Step Commands with Increased Time, Able to Follow One Step Commands with Repetition Memory Description Short Term Impaired Safety Awareness Decreased Ability to Apply Precautions,Underestimates Need for Assistance Cognitive Comments Cognitive Assessment Comments Pt a bit implusive and forgetting to apply back precautions for needs. Pt needing constant vc for safety . OT- Vision and Hearing OT- Hearing Assessment OT- Hearing Assessment WFL M7 OT- IP Mobility and Balance Start: 03/03/20 16:54 Freq: Status: Active Protocol: Document 03/03/20 14:32 [facility] (Rec: 03/03/20 17:15 [facility] [id number]) OT- Bed Mobility Assessment Rolling Type of Rolling Roll to Left Supine to Sit Supine to Sit Assist Standby Assistance Sit to Supine Sit to Supine Assist Standby Assistance OT-Transfer Assessment Sit to and From Stand Sit to and from Stand Standby Assistance Transfers Transfer Ability Standby Assistance Technique Transfer Destination Bed,Toilet Transfer Technique Stand Step Pivot Devices Transfer Assistive Devices Gait Belt,Front Wheeled Walker Comments Mobility Comments Pt needing MAX A to do log rolling and having difficulty to coordinate bring her arm and knee over at the same time to log roll. Pt trying to get back into bed by getting her legs in first and having to stop pt so able to repractice log rolling again. Pt needing cues to keep FWW in front of her at al times. OT- Gait Assessment Comments Gait Ability Comments close SBA with FWW OT- Balance Assessment Sitting Balance and Reactions Static Sitting Balance Ability Normal Dynamic Sitting Balance Ability Normal Standing Balance and Reactions Static Standing Balance Ability Good M8 OT- IP Objective Assessments Start: 03/03/20 16:54 Freq: Status: Active Protocol: Document 03/03/20 14:32 [facility] (Rec: 03/03/20 17:15 [facility] [id number]) OT Gross Range of Motion Upper Extremity Range of Motion Assessment Within Functional Limits OT Strength Upper Extremity Strength Assessment Within Functional Limits OT-Muscle Tone Assessment Muscle Tone WNL Yes M9 OT- IP Assessment and Plan Start: 03/03/20 16:54 Freq: Status: Active Protocol: Document 03/03/20 14:32 [facility] (Rec: 03/03/20 17:15 [facility] [id number]) OT Summary Assessment and Plan Potential Rehabilitation Potential Good Analytic Complexity at Evaluation Low Summary OT Impairments Pain,Balance,Functional Cognition,Functional Mobility, Grooming,Dressing,Toileting, Bathing,Toilet Transfers, Shower Transfers,Activity Tolerance Progress Towards Goals Progressing Toward Goals,Slow Progress due to Cognition Assessment Summary Pt low complexity after L5-S1 TLIF and main barrier is decreased safety awareness and at times insistent on doing things her own way versus following back precautions. Pt states here significant other to be present tomorrow morning to talk to the surgeon and also to particpate in caregiver training. Pt looking to go home tomorrow after caregiver training with her s.o to ssist. Goals Grooming Goal Independent Dressing Goal Independent Toileting Goal Independent Bathing Goal Standby Assistance Toilet Transfer Goal Independent Shower Transfer Goal Standby Assistance Patient/Caregiver Education Goal Demonstrate Post-Op Precautions,Caregiver Independent Assisting Patient Days to Meet Goals 3 Frequency of Treatment Frequency Of Treatment Once a Day Treatment Plan OT Treatment Plan ADL Training,Functional Cognition Training,Functional Mobility,Patient/Family Education,Discharge Planning Other Treatment Recommendations and Next caregiver training Treatment Focus Discharge Recommendations OT Discharge Recommendations Home with Assistance Transportation Needs at Discharge Private Vehicle
[2020-03-03 15:31] VITALS: BP 117/73; PULSE 82; RESP 18; TEMP 36.3; O2SAT 96
[2020-03-03] MEDS: SENNOSIDES 8.6 MG TABLET 17.2 MG PO (21:07)
[2020-03-03] MEDS: BISACODYL 5 MG TABLET 15 MG PO (21:07)
[2020-03-03] MEDS: ALPRAZolam 0.5 MG TABLET PO (21:08)
[2020-03-03] MEDS: SIMVASTATIN 40 MG TABLET PO (21:08)
[2020-03-03] MEDS: SODIUM CHLORIDE 0.9% FLUSH 10 ML IV (21:09)
[2020-03-03 21:30] VITALS: BP 122/72; PULSE 85; RESP 16; TEMP 36; O2SAT 97
[2020-03-03 23:54] VITALS: BP 115/73; PULSE 89; RESP 18; TEMP 36.8; O2SAT 96
[2020-03-04] MEDS: ACETAMINOPHEN 325 MG TABLET 975 MG PO ×2 (00:44→08:47)
[2020-03-04] MEDS: OXYCODONE IR 5 MG TABLET 15 MG PO (03:42)
[2020-03-04 04:40] VITALS: BP 117/84; PULSE 87; RESP 16; TEMP 36.3; O2SAT 98
--- NOTE | 2020-03-04 04:49 | PC.NURSE ---
Pt slept peacefully much of shift. Was cooperative and pleasant. Ambulated around room and down tadeo w/GENERAL WORKER using a FWW. Oxycodone 15mg and Tylenol controlled pain well. At 0430 pt awoke irritated, tearful and complaining that she needed to have a BM and was having tremors and, must not have gotten her Xanax. Her MAR Xanax administration was read to her, she agreed that the times of her dosage being due were accurate but again stated, then why am I having these tremors? Pt was very irritated and tearful. This RN suggested she may feel better if she lay back down in bed. Informed pt that she was due to have her [place] DC'ed. Pt agreed to this, laid down and almost immediately calmed down and became pleasant again. Pt is resting peacefully at this time.
[2020-03-04] MEDS: PANTOPRAZOLE 40 MG TABLET PO (05:09)
[2020-03-04] MEDS: LEVOTHYROXINE 125 MCG TABLET PO (05:09)
[2020-03-04] MEDS: diphenhydrAMINE 25 MG TABLET 50 MG PO (05:53)
--- NOTE | 2020-03-04 07:21 | PC.NURSE ---
Addendum entered by Arianne Main R.N. 03/04/20 11:18: pt given back her home medications stored in pharmacy of Simethicone, Ventolin inhaler, Mupirocin ointment, and Hydrocortisone cream. Pt states she retrieved everything back. All belongings out of room. Pt's boyfriend Nitish present for caregiver training, to drive pt home, and for discharge instructions. Discharge summary packet reviewed at 1000 with pt and Nitish, no further voiced concerns, pt states already has follow up appointment made with Dr. Holley. Pt states will brick picker prune juice on the way home, discussed preventing constipation. Pt states is ready and wanting to go home. Pt left unit via wheelchair in no distress at 1015 with [employer] escort. Nitish helped with pt belongings and will be driving pt home. Addendum entered by Arianne Main R.N. 03/04/20 07:58: Pt highly anxious this morning, texting on her phone when this RN in room trying to ask about which medications she wants this morning. Pt states she's shaky, anxious, can't concentrate. Support provided, pt not very receptive, continues to ramble and text on her phone. Wants to go home RAYSA, reminded pt she needs caregiver training with PT/OT this morning prior to discharge. Zofran IV PRN given at 0745 with pt request for PRN Dilaudid po as Oxycodone makes her nauseated and she doesn't want to take it. Also pt requested her scheduled Xanax. Pt wanted to hold off on other scheduled AM meds until after she eats. Lower back dressing changed to Gauze and tegaderm per Dr. Holley verbal order. Coversite X2 dressing removed for small amount of sero-sang drainage on inside of dressing, Incisions well approximated, christian intact, no S/S of infection. To right side of incisions is Steri-strip CDI for iliac crest harvest. Pt tolerated dressing change well. At proximal end of ole dressing, noted pink skin, appears irritation from old dressing, skin remains intact. Original Note: Day Shift- At 0710, pt set bed alarm off, was previously sitting on side of bed. Pt found ambulating in room with walker, stating she had emesis in the emesis blue bag, rinsed it in the sink then placed in garage. Pt settled back on side of bed. Night RN had reminded pt to use call light prior to ambulation OOB. At 0715, Dr. Holley made aware of the above.
--- NOTE | 2020-03-04 07:28 | PM.PNPO.1 ---
Subjective Subjective Date Patient Seen: 03/04/20 Time Patient Seen: 07:28 Interval history: Pain is under much better control with the the law did. However, she has still been getting some oxycodone which is making her nauseated and she threw up earlier. She is feeling shaky and feels like she needs more of her Xanax as she is having some significant anxiety. On a positive note, she is independent with ambulation. She has been getting up and out of bed and moving around on her own quite well. Exam Vital Signs (past 8 hours): - 03/03/20 23:54 03/04/20 04:40 Temperature 98.2 F 97.3 F L Pulse Rate 89 87 Respiratory Rate 18 16 Blood Pressure 115/73 117/84 Pulse Oximetry 96 98 Oxygen Delivery Method Room Air Oxygen Flow Rate 0 Const Orientation: alert and oriented x3 Back/Spine/Pelvis Other: Mild drainage. 5/5 motor both lower extremities. Objective Labs Result Diagrams: 03/03/20 06:38 Assessment & Plan Post-op Postoperative Procedures: Procedures Operation Date: 03/02/20 10:45 Actual Procedures Side Surgeon p L5-S1 laminectomy & instrumented fusion (TLIF) w/bone graft,removal old L45 screws Deion Holley MD We are going to give her Xanax to her a little bit early which should help with anxiety. Nausea medication through IV for now. She wants to go home today. She is independent and mobile and should be fine. We will send her home with oral Dilaudid and Zofran. Quality VTE Deep Vein Thrombosis/Pulmonary Embolism Present on Admission: No
--- NOTE | 2020-03-04 07:30 | PM.DS.1 ---
History of Present Illness History of Present Illness Date Patient Seen: 03/04/20 Time Patient Seen: 07:30 Chief complaint: Translaminar Interbody Fusion/Laminotomy Narrative: 64-year-old female with low back pain and left leg pain. She has a history of a L4-5 laminectomy and fusion in the past. She began having recurrence of leg symptoms. She failed time, medication, and epidural injections. Discharge Providers Provider Date of admission: 03/02/20 09:11 Discharge Date: 03/04/20 Primary care physician: Judah Tristan DO Consults: 03/02/20 14:44 Consult to Occupational Therapy Evaluate & Treat Comment: Physician Instructions: Evaluate and treat Consult to Physical Therapy Evaluate & Treat Comment: Physician Instructions: Evaluate and Treat Discharge provider: Deion Holley MD Summary Hospital Course Discharge Diagnosis: Lumbar stenosis with radiculopathy Hospital Course: She is brought to the operating room on 03/02/2020 where she underwent L5-S1 laminectomy and instrumented fusion. Postoperatively her leg pain was fine but had significant issues with overall back pain control. She normally takes oxycodone at home with this makes her nauseated. She was doing much better with the IV Dilaudid and we switched her over to oral Dilaudid and she did well with this. She has significant anxiety and this was difficult for her in the hospital as she felt shaky with tremors every time her pain levels escalated. This was better controlled with her regular the Xanax, we does have give her some extra be on her normal daily dosing. She reacts to several different types of dressings but reports she did well with Tegaderm and her dressing was changed over to a Tegaderm dressing. By the date of discharge she was up and independently ambulating. She had adequate pain relief with the Dilaudid was requesting discharge home. Status at Discharge Cognitive/behavioral status at discharge: oriented Functional status at discharge: uses cane/walker Overall status at discharge: patient is progressing back to baseline Exam Vital Signs (past 8 hours): - 03/03/20 23:54 03/04/20 04:40 Temperature 98.2 F 97.3 F L Pulse Rate 89 87 Respiratory Rate 18 16 Blood Pressure 115/73 117/84 Pulse Oximetry 96 98 Oxygen Delivery Method Room Air Oxygen Flow Rate 0 Objective Labs Result Diagrams: 03/03/20 06:38 Discharge Plan Discharge Plan Patient Disposition: Home Discharge comment: f/u 1.[address] Holley Discharge orders & Medications Prescriptions: New docusate sodium [DOK] 100 mg Capsule 100 mg PO BID PRN (Reason: constipation) Qty: 30 RF: 0 hydromorphone 4 mg Tablet See Rx Instructions .ROUTE .COMPLEX PRN (Reason: Pain, Severe (7-10)) Qty: 60 RF: 0 ondansetron HCl [Zofran] 4 mg tablet 4 mg PO Q4HR PRN (Reason: nausea and vomiting) Qty: 30 RF: 0 Continued cetirizine [Zyrtec] 10 mg Tablet 10 mg PO DAILY Qty: 0 RF: 0 magnesium oxide 400 MG capsule 800 mg PO DAILY Qty: 0 RF: 0 sumatriptan succinate 100 MG tablet 100 mg PO DAILY MDD 2 tabs daily PRN (Reason: Migraines) Qty: 0 RF: 0 cholecalciferol (vitamin D3) 10,000 UNIT tablet 10,000 iu PO QDAY Qty: 0 RF: 0 spironolactone [Aldactone] 25 mg tablet 25 mg PO QDAY Qty: 90 RF: 0 fluticasone propionate 50 mcg/actuation spray,suspension 2 spray Intranasal BID Qty: 18.2 RF: 2 baclofen 10 mg tablet 10 mg PO TID Qty: 270 RF: 1 esomeprazole magnesium [Nexium] 40 mg capsule,delayed release(DR/EC) 40 mg PO DAILY Qty: 90 RF: 1 levothyroxine [Synthroid] 125 mcg tablet 125 mcg PO QDAY Qty: 90 RF: 1 losartan 100 mg tablet 100 mg PO DAILY Qty: 90 RF: 1 simvastatin 40 mg tablet 40 mg PO BEDTIME Qty: 90 RF: 1 Premarin 1.25 mg tablet 1.25 mg PO QDAY Qty: 90 RF: 3 alprazolam 0.5 mg tablet 0.25 mg PO SEEINSTR RF: 0 potassium chloride 10 mEq capsule, extended release 10 meq PO DAILY RF: 0 pseudoephedrine HCl [Sudafed 12 Hour] 120 mg tablet extended release 120 mg PO Q12H PRN (Reason: Sinus congestion) RF: 0 bisacodyl 5 mg tablet 15 mg PO BEDTIME RF: 0 aspirin 325 mg tablet 325 mg PO DAILY RF: 0 albuterol sulfate [ProAir HFA] 90 mcg/actuation HFA aerosol inhaler 2 puff INHALATION Q4-6H PRN (Reason: wheezing) Qty: 6.7 RF: 3 furosemide 20 mg tablet 20 mg PO QDAY Qty: 90 RF: 1 triamcinolone acetonide 0.1 % ointment 1 applictn TOP DAILY RF: 0 promethazine 25 mg tablet 25 mg PO QID RF: 0 acetaminophen 500 mg Capsule 1,000 mg PO Q6H PRN (Reason: Pain) RF: 0 diphenhydramine HCl 25 mg Capsule 50 mg PO TID PRN (Reason: w/narcotics for itching) RF: 0 Discontinued oxycodone 10 mg tablet 10 mg PO TID PRN (Reason: pain) Qty: 90 RF: 0 Follow up/Referrals: Judah Tristan DO [Primary Care Provider] - Discharge Health Status Multidrug resistant organism: No MDRO Diet/Activity/Treatments Diet: Diet as Tolerated Activity: Limited bending, twisting, 10 lb maximum lifting Skin/Wound/Dressing Care Report to your healthcare provider any signs of infection, such as:: chills, fever, night sweats, increased pain, unusual drainage and unusual redness Dressing: Keep dressing intact until Sunday. May take down dressing and shower at that point and replaced with a new dressing afterwards Visit Report/Discharge Packet Instructions: DI for Prescription Opioid Use, DI for Transforaminal Lumbar Interbody Fusion Stand Alone Forms: Surgery Discharge Discharge Data Primary Care Provider: Judah Tristan Quality VTE Deep Vein Thrombosis/Pulmonary Embolism Present on Admission: No
[2020-03-04] MEDS: HYDROMORPHONE 4 MG TABLET PO (07:42)
[2020-03-04] MEDS: SODIUM CHLORIDE 0.9% FLUSH 10 ML IV (07:43)
[2020-03-04] MEDS: ONDANSETRON 4 MG/2 ML INJ IV (07:43)
[2020-03-04] MEDS: ALPRAZolam 0.25 MG TABLET PO (07:47)
[2020-03-04] MEDS: ASPIRIN 325 MG TABLET PO (08:44)
[2020-03-04] MEDS: FLUTICASONE 120 SPRAY/16 GM SPRAY.SUSP NASAL (08:44)
[2020-03-04] MEDS: CHOLECALCIFEROL (VITAMIN D3) 5,000 UNIT TABLET 10000 UNIT PO (08:44)
[2020-03-04] MEDS: DOCUSATE 100 MG CAPSULE PO (08:45)
[2020-03-04] MEDS: SPIRONOLACTONE 25 MG TABLET PO (08:45)
[2020-03-04] MEDS: FUROSEMIDE 20 MG TABLET PO (08:45)
[2020-03-04] MEDS: POTASSIUM CHLORIDE 10 MEQ TAB PO (08:45)
[2020-03-04] MEDS: LORATADINE 10 MG TABLET PO (08:45)
[2020-03-04] MEDS: LOSARTAN 50 MG TABLET 100 MG PO (08:45)
[2020-03-04] MEDS: PROMETHAZINE 25 MG TABLET PO (08:46)
[2020-03-04] MEDS: ESTROGENS, CONJUGATED 0.625 MG TABLET 1.25 MG PO (08:46)
[2020-03-04] MEDS: BACLOFEN 10 MG TABLET PO (08:46)
--- NOTE | 2020-03-04 08:48 | CM.DPC ---
DCP: continued: case received, dc order for home noted. EMR reviewed. Met now with pt's friend Nitish Suarez [phone] and introduced self and role. He was in pt's room, OT Noel had just started her work with pt and including caregiver training. CHELI Estrada was going over pt's medications with her and pt was clearly very focused on this so did not interrupt them. Nitish confirmed that he will be staying with pt to help her as she recovers, as help as she will allow, that is. Pt has been up independently in the room earlier today and expressed her eagerness for d/c to Dr. Holley. P: Anticipate home today with orthopedic clinic followup.
[2020-03-04 09:00] VITALS: BP 136/91; PULSE 97; RESP 18; TEMP 37.3; O2SAT 97
--- NOTE | 2020-03-04 09:13 | OT.IP.TRT ---
Current Diagnoses Spinal stenosis, lumbar region with neurogenic claudication (03/02/20) Strain of muscle, fascia and tendon of lower back, subsequent encounter (03/02/20) Arthrodesis status (03/02/20) Surgery Performed Operation Date: 03/02/20 10:45 Actual Procedures p L5-S1 laminectomy & instrumented fusion (TLIF) w/bone graft,removal old L45 screws - Deion Holley MD Occupational Therapy Treatment Note M3 OT- IP Subjective and Pain Start: 03/03/20 16:54 Freq: Status: Active Protocol: Document 03/04/20 08:35 [facility] (Rec: 03/04/20 10:18 [facility] [id number]) OT- Subjective Occupational Therapy Visit Type Type Treatment Note Visit Start Time 08:35 Visit Stop Time 09:13 Total Visit Minutes 38 Occupational Therapy Visit Comments Patient Comments Pt's friend present for caregiver training. Patient/Caregiver Goals To go home . OT Pain Assessment Pain When Pain Assessed At Rest Pain Present Pain Present Denied Pain M4 OT- IP ADL's Start: 03/03/20 16:54 Freq: Status: Active Protocol: Document 03/04/20 08:35 [facility] (Rec: 03/04/20 10:18 [facility] [id number]) OT ADL-Dressing General Eval Upper Body Dressing Ability Independent Lower Body Dressing Ability Minimal Assistance Comments OT Dressing Comments Assist to get the shoe over her heels. Pt issued a long handled shoe horn. OT ADL-Toileting General Evaluation Toileting Ability Independent Comments OT Toileting Comments Good safety back precautions for pericare needs. OT ADL-Bathing Bathing Type Bathing Type Sponge Bath General Evaluation Bathing Ability Minimal Assistance Areas Needing Assistance Wash/Dry Back Comments OT Bathing Comments Pt assist to wash her back and vc not to twist while getting items for sponge bathing. M6 OT- IP Functional Cognition Start: 03/03/20 16:54 Freq: Status: Active Protocol: Document 03/04/20 08:35 [facility] (Rec: 03/04/20 10:18 [facility] [id number]) Cognitive Factors Limiting Selfcare Function Cognitive Ability Level of Alertness Alert Patient Orientation Name,Place,Situation Attention Span Ability Capable of Focused Attention, Capable of Sustained Attention Ability to Follow Commands Able to Follow Multi-Step Commands Memory Description Short Term Impaired Safety Awareness Decreased Ability to Apply Precautions,Underestimates Need for Assistance Cognitive Comments Cognitive Assessment Comments Pt still impulsive and needing vc for reminder not to twist and to take her time. Pt's significant other has good understanding to be able to provide safety cue and assist pt as needed. M7 OT- IP Mobility and Balance Start: 03/03/20 16:54 Freq: Status: Active Protocol: Document 03/04/20 08:35 [facility] (Rec: 03/04/20 10:18 [facility] [id number]) OT-Transfer Assessment Sit to and From Stand Sit to and from Stand Standby Assistance Transfers Transfer Ability Standby Assistance Technique Transfer Destination Bed,Toilet Transfer Technique Stand Step Pivot Devices Transfer Assistive Devices Gait Belt,Front Wheeled Walker Comments Mobility Comments VC to use at least one hand to push up from surfaces sitting on. M9 OT- IP Assessment and Plan Start: 03/03/20 16:54 Freq: Status: Active Protocol: Document 03/04/20 08:35 [facility] (Rec: 03/04/20 10:18 [facility] [id number]) OT Summary Assessment and Plan Potential Rehabilitation Potential Good Analytic Complexity at Evaluation Low Summary Progress Towards Goals Progressing Toward Goals Assessment Summary Pt's significant other here for caregiver training and able to demonstrate and show good safety for all OT needs and will be able to assist pt at home. Pt still a little impulsive and tends to forget that she should not be twisting. Goals Days to Meet Goals 1 Frequency of Treatment Frequency Of Treatment Once a Day Treatment Plan OT Treatment Plan ADL Training,Functional Cognition Training,Functional Mobility,Patient/Family Education,Discharge Planning Discharge Recommendations OT Discharge Recommendations Home with Assistance Home Equipment Needs Shoe horn issued Transportation Needs at Discharge Private Vehicle
--- NOTE | 2020-03-04 09:45 | PT.IPTN ---
Current Diagnoses Spinal stenosis, lumbar region with neurogenic claudication (03/02/20) Strain of muscle, fascia and tendon of lower back, subsequent encounter (03/02/20) Arthrodesis status (03/02/20) Surgery Performed Operation Date: 03/02/20 10:45 Actual Procedures p L5-S1 laminectomy & instrumented fusion (TLIF) w/bone graft,removal old L45 screws - Deion Holley MD Physical Therapy Treatment Note M2 PT-IP Current Condition Start: 03/03/20 12:14 Freq: NEEDED Status: Discharge Protocol: Document 03/04/20 09:31 TP (Rec: 03/04/20 12:00 TP [id number]) Physical Therapy Current Condition Precautions Lumbar Precautions Log Roll,No Twisting,Limit Bending,Lifting Restriction of 10 lbs,Gait Belt above Incisional Area M3 PT-IP Subjective Start: 03/03/20 12:14 Freq: NEEDED Status: Discharge Protocol: Document 03/04/20 09:31 TP (Rec: 03/04/20 12:00 TP [id number]) Subjective Physical Therapy Visit Type Type Treatment Note Visit Start Time 09:31 Visit Stop Time 09:45 Total Visit Minutes 14 Notes Pt's SO present during tx for caregiver training. Student TECHNICAL MANAGER Luciana supervised by PRIMITIVO Mccord. Number of TECHNICAL MANAGER Visits 2 Physical Therapy Visit Comments Patient Comments Pt agreeable to working with PT at this time. Therapy Pain Assessment Pain When Pain Assessed At Rest Pain Present Pain Present Pain Reported Location back Intensity 7 Scale Used Numeric (0 - 10) Pain Management Techniques Distraction,Re-positioning, Timing of Activity with Medications M4 PT-IP Mobility and Gait Start: 03/03/20 12:14 Freq: NEEDED Status: Discharge Protocol: Document 03/04/20 09:31 TP (Rec: 03/04/20 12:00 TP [id number]) PT-Bed Mobility Assessment Rolling Type of Rolling Roll to Left Level of Assist Standby Assistance Supine to Sit Supine to Sit Standby Assistance Sit to Supine Sit to Supine Standby Assistance Scooting Scooting to Edge of Bed Standby Assistance PT-Transfer Assessment Sit to and From Stand Sit to and from Stand Standby Assistance Equipment Transfer Assistive Device Gait Belt,Front Wheeled Walker Orthotic/Prosthetic Devices or Brace: No Transfers Transfer Destination Bed Transfer Technique Stand Step Pivot Transfer Ability Level of Assist Standby Assistance Comments Mobility Comments Pt sitting at EOB in street clothes upon arrival. Recalled 3/3 spinal precautions x2. Pt's significant other present with knowledge of spinal precautions. Caregiver education for donning of gait belt and safe use for assist with transfers and ambulation with FWW. Pt demonstration of sit<>stand SBA with minimal verbal cues for safety. Ambulation in hallway around nurse's station, approximately 212' SBA. Pt displays good posture with increased stride length today. Stand <>sit with reach back for stable surface FWW, SBA with good carryover, no cuing required. Sit<>sidelying SBA, no cues needed. Shoulders rotated before BLE during log roll from sidelying to supine, causing spine to twist. Pt noted sciatic pain in L LE. Pt and caregiver education regarding safe performance of log roll. Pt performed 3x with verbal cues for keep shoulders and BLE aligned before demonstrating correctly . Reviewed contents of post- op packets, including spinal precautions. Pt call light in reach and all other needs within reach. Pt positioned at EOB with gait belt donned, with FWW and caregiver at side . Nurse notified of patient's progress. Gait Assessment Gait Gait Assistance Required: Standby Assistance Distance (Feet) 212 Able to Maintain Weight Bearing Status Yes During Gait Assistive Devices Assistive Device Gait Belt,Front Wheeled Walker Orthotic/Prosthetic Devices or Brace: No Gait Deviations General Gait Pattern Antalgic,Decreased Stride Length,Decreased Feet Clearance Factors Limiting Gait Function Factors Limiting Gait Function Decreased Activity Tolerance, Decreased Strength,Limited Range of Motion,Pain,Poor Balance,Poor Safety Awareness Comments Gait Comments See mobility comments. Ambulation in hallway 212' FWW SBA. Stair Climbing Assessment Comments Stair Climbing Comments Not assessed. No stairs at home. PT-Balance Assessment Sitting Balance and Reactions Static Sitting Balance Ability Good Dynamic Sitting Balance Ability Good Standing Balance and Reactions Static Standing Balance Ability Fair Dynamic Standing Balance Ability Fair Device Used using FWW M5 PT-IP Objective Assessments Start: 03/03/20 12:14 Freq: NEEDED Status: Discharge Protocol: Document 03/03/20 11:14 AB (Rec: 03/03/20 12:39 AB [id number]) Orientation Orientation/Cognition Level of Alertness Alert Orientation Name,Place,Situation Safety Awareness Decreased Safety Awareness Gross Range of Motion Lower Extremity ROM Assessment Within Functional Limits Strength Lower Extremity Strength Assessment Left Impaired Knee 3+/5 Muscle Tone Muscle Tone WNL Yes M6 PT-IP Treatment Start: 03/03/20 12:14 Freq: NEEDED Status: Discharge Protocol: Document 03/04/20 09:31 TP (Rec: 03/04/20 12:00 TP [id number]) Physical Therapy Treatment Education Education Provided Precautions,Post-Op Packet, Safety M7 PT-IP Assessment and Plan Start: 03/03/20 12:14 Freq: NEEDED Status: Discharge Protocol: Document 03/04/20 09:31 TP (Rec: 03/04/20 12:00 TP [id number]) PT Summary Assessment and Plan Potential Rehabilitation Potential Fair Status of Condition at Evaluation Evolving Summary Impairments Pain,ROM,Strength,Balance, Coordination,Sensation,Tone, Cognition,Bed Mobility, Transfers,Gait,Activity Tolerance Assessment Summary Caregiver training complete, with good demonstration of ability to assist pt with safe mobility to maintain spinal precautions. Pt strength increasing noted by increased stride length today during gait. Level of assist improved with FWW from CGA to SBA. Pt is appropriate to discharge with assistance when medically clear. Goals Bed Mobility Goal Independent Transfer Goal Independent,Front Wheeled Walker Gait Goal Independent,Front Wheel Walker Gait Distance 150 Days to Meet Goals 5 Frequency of Treatment Frequency Of Treatment Twice a Day Treatment Plan Physical Therapy Treatment Plan Bed Mobility Training,Transfer Training,Gait Training, Therapeutic Exercise,Balance Retraining,Post Op Education, Discharge Planning,Hot or Cold Pack,Neuromuscular Re-ed, Coordination Retraining,Manual Therapy Other Recommendations and Next Treatment Pt is appropriate to discharge [facility] with assistance when medically clear. Recommendations To Nursing Amount of Assist Needed Standby Assistance,1 Person Assist Discharge Recommendations PT Discharge Recommendations Home with Assistance Transportation Needs at Discharge Private Vehicle
== END 2020-03-04 10:15 | disposition home or self-care (01) | DRG 455 ==
PROVIDERS: Admitting Provider Orthopaedic Surgery; Family Provider Family Medicine; PCP Family Medicine; Referring Provider Orthopaedic Surgery; Visit Provider Orthopaedic Surgery
PROC: 0SG30AJ Fusion of Lumbosacral Joint with Interbody Fusion Device, Posterior Approach, Anterior Column, Open Approach (ICD-10-PCS; principal; 2020-03-02 10:45)
DX: M48.062 Spinal stenosis, lumbar region with neurogenic claudication (principal); J45.909 Unspecified asthma, uncomplicated; E03.9 Hypothyroidism, unspecified; E78.5 Hyperlipidemia, unspecified; K21.9 Gastro-esophageal reflux disease without esophagitis; M79.7 Fibromyalgia; F32.9 Major depressive disorder, single episode, unspecified; I10 Essential (primary) hypertension; G89.29 Other chronic pain; F41.9 Anxiety disorder, unspecified; G89.18 Other acute postprocedural pain; Z01.812 Encounter for preprocedural laboratory examination; Z11.59 Encounter for screening for other viral diseases; Z79.891 Long term (current) use of opiate analgesic
CPT/HCPCS: 36415; 72100; 76000; 85014; 85018; 87635; 94762; 97116; 97162; 97165; 97530; 97535; C1776; A9270; C9290; J1100; J1170; J2060; J2250; J2405; J2704; J3010; J3410

== ENCOUNTER → 2020-04-08 12:38 | Outpatient (CLI) | payer OTHER, SELFPAY ==
[2020-03-02 15:41] VITALS: BMI 23.8
[2020-04-08 14:13] LABS: Add Manual Diff / Slide Review NO; Basophils Absolute Auto 200 /uL (0-100); Eosinophils Absolute Auto 500 /uL (0-450); Eosinophils Percent Auto 5.8 % (2-4); Hematocrit 30.3 % (36-46); Lymphocytes Absolute Auto 1800 /uL (1100-4500); Lymphocytes Percent Auto 19.9 % (25-40); Mean Corpuscular Volume 87.9 fL (80-100); Monocytes Absolute Auto 600 /uL (0-900); Monocytes Percent Auto 6.8 % (3-14); Neutrophils Absolute Auto 6000 /uL (1500-7000); Neutrophils Percent Auto 65.5 % (50-75); Platelet Count 429 X10^3/uL (150-400); Red Blood Cell Count 3.44 X10^6/uL (4.0-5.2); Red Cell Distribution Width 16.4 % (11.6-14.8); White Blood Cell Count 9.2 X10^3/uL (4.5-11.0)
[2020-04-08 14:37] LABS: Alanine Aminotransferase 12 IU/L (<35); Albumin 3.9 g/dL (3.5-5.0); Albumin Globulin Ratio 1.4 (1.0-2.8); Alkaline Phosphatase 61 U/L (38-126); Aspartate Aminotransferase 19 IU/L (14-36); BUN Creatinine Ratio 41.8 (6-22); Bilirubin Total 0.2 mg/dL (0.2-1.3); Blood Urea Nitrogen 28 mg/dL (7-17); Calcium 9.4 mg/dL (8.4-10.2); Carbon Dioxide 27 mmol/L (22-32); Chloride 94 mmol/L (98-107); Estimated Glomerular Filt Rate > 60.0 mL/min (>60); Globulin 2.7 g/dL (1.7-4.1); Glucose 88 mg/dL (80-110); HEMOLYSIS < 15 (0-50); Sodium 128 mmol/L (137-145); Total Protein 6.6 g/dL (6.3-8.2)
[2020-04-08 14:39] LABS: Potassium 5.8 mmol/L (3.4-5.1)
== END ==
PROVIDERS: Family Provider Family Medicine; PCP Family Medicine; Referring Provider Family Medicine; Visit Provider Family Medicine
DX: D64.9 Anemia, unspecified (principal); E87.1 Hypo-osmolality and hyponatremia
CPT/HCPCS: 36415; 80053; 85025

== ENCOUNTER → 2020-05-23 11:10 | Outpatient (CLI) | payer OTHER, SELFPAY ==
[2020-03-02 15:41] VITALS: BMI 23.8
[2020-05-24 14:37] LABS: COVID19 Sendout Not Detected (Not Detect)
== END ==
PROVIDERS: Family Provider Family Medicine; PCP Family Medicine; Visit Provider Physician Assistant
DX: Z01.812 Encounter for preprocedural laboratory examination (principal)
CPT/HCPCS: 87635

== ENCOUNTER 2020-05-26 09:23 | Day surgery (SDC) | payer OTHER, MEDICAID, SELFPAY ==
[2020-03-02 15:41] VITALS: BMI 23.8
--- NOTE | 2020-05-25 17:32 | PM.PREOP ---
Pre-operative Note COVID-19 COVID-19 status: Negative Interval Note History & Physical reviewed/Exam performed by Physician: Yes Changes to H&P: No
--- NOTE | 2020-05-26 07:43 | PM.OP.1 ---
Operative Date/Time/Diagnoses Date of procedure: 05/26/20 Time of procedure: 09:45 [facility] Procedure: Preoperative diagnoses: 1. Right significant nuclear sclerotic and cortical cataract. 2. History of trauma with orbital fracture repair left eye at [place] [facility] 3. Glaucoma status post laser trabeculoplasty. 4. Tremor 5. Anxiety. 6. Recent spinal fusion with possible postoperative stroke 7. Polycystic kidney disease 8. Hypertension 9. Anemia 10. Multiple allergies Postoperative diagnoses: 1. Cataract removed by phacoemulsification with placement of posterior chamber intraocular lens. Procedure: Phacoemulsification with posterior chamber intraocular lens implant Surgeon: Amanda Clinton MD Complications: None Specimen: None Implant: ZCBOO+18.5 Blood loss: None Anesthesia: Retrobulbar with monitored standby Description of procedure: Patient presents with a complaint of decreased vision due to cataract which is affecting activities of daily living. She has complaint of reduced vision distance and near. She has multiple medical problems currently she states under control and has had successful recent spinal surgery which is improved her overall function. She has multiple allergies. The patient wants surgery to improve vision. The patient was taken to the operating room and given IV sedation. A retrobulbar block consisting of 6 cc of 2% xylocaine without epinephrine mixed half and half with 0.5% Marcaine with 1 cc of hyaluronidase added is placed between the medial and lateral 1/3 of the inferior orbital rim. The eye is manually massaged for 30 sec, prepped using Betadine solution, and draped in the usual sterile fashion. Temporal approach was made, a 1 mm side-port incision was made 90? from the proposed clear corneal incision position. Phenylephrine 1.5% mixed with 1% xylocaine 0.2 cc was placed into the anterior chamber. Viscoat followed by Brandy was then placed. A 2.6 mm clear incision with a 2.6 mm blade was placed. A 360 degree capsulorrhexis style capsulotomy was then performed with a cystitome needle on a Healon. Hydrodelineation and hydrodissection were performed. The phacoemulsification unit is introduced, and sculpting notice used to groove the central lens. It is then removed in chopping mode. Epi nucleus is removed with epinuclear mode and irrigation aspiration was used to remove the peripheral cortex. The posterior capsule is polished. The intraocular lens is selected, inspected, power confirmed, and placed in the posterior chamber. The wound was stromally hydrated and tested for leaks, there was none and it was left sutureless. Vigamox 0.1 cc was placed into the anterior chamber. Kenalog 0.2 cc was placed in the superior subconjunctival space. A drop of antibiotic and was placed and the eye was patched and shielded. The patient was stable and returned to the recovery room in excellent condition. Dictated by: Amanda Clinton MD Copy to: [facility] Same procedure as scheduled: Yes
[2020-05-26] MEDS: PROPARACAINE 0.5% OPHTH SOL 2 DROPS EYE-OP (10:07)
[2020-05-26] MEDS: CATARACT EYE COMPOUND (10 DROPS/SYRINGE) 3 DROPS EYE-OP (10:10)
[2020-05-26 10:20] VITALS: BP 106/63; PULSE 82; RESP 16; TEMP 36.9; O2SAT 99; BMI 24.7
[2020-05-26] MEDS: HYALURONATE SODIUM 10 MG/ML SYRINGE INJ (11:00)
[2020-05-26] MEDS: BALANCED SALT IRRIG SOLN NO.2 500 ML, EPINEPHrine 1 MG IRR (11:01)
[2020-05-26] MEDS: MOXIFLOXACIN INJ 5 MG/ML VIAL EYE-OP (11:01)
[2020-05-26] MEDS: CHONDROIDTIN/SOD HYALURONATE 1.05 ML SYRINGE INTRAOCULA (11:01)
[2020-05-26] MEDS: TRIAMCINOLONE 50 MG/5 ML VIAL INJ (11:02)
[2020-05-26] MEDS: PHENYLEPHRINE/LIDOCAINE VIAL (OR) 0.2 ML EYE-OP (11:02)
[2020-05-26] MEDS: TOBRA/DEX 0.3%/0.1% OPHTH OINT 1 APPLIC EYE-RIGHT (11:03)
--- NOTE | 2020-05-26 11:16 | SUR.OPER ---
Supine on eye stretcher, head on extension cradle secured with tape. Arms tucked at sides with blanket. Pillow under knees.
[2020-05-26 11:33] VITALS: BP 98/62; PULSE 60; RESP 16; TEMP 37.4; O2SAT 95
[2020-05-26 12:03] VITALS: BP 113/68; PULSE 78; RESP 16; TEMP 37.3; O2SAT 97
[2020-05-26 12:32] VITALS: BP 104/69; PULSE 77; RESP 16; TEMP 36.8; O2SAT 97
== END 2020-05-26 12:15 | disposition home or self-care (01) ==
LOC: OR 09:24
PROVIDERS: Family Provider Family Medicine; PCP Family Medicine; Referring Provider Family Medicine; Visit Provider Ophthalmology
PROC: (CPT 66984; principal; 2020-05-26 10:45)
DX: H25.11 Age-related nuclear cataract, right eye (principal); H25.011 Cortical age-related cataract, right eye; K21.9 Gastro-esophageal reflux disease without esophagitis; I10 Essential (primary) hypertension; E78.5 Hyperlipidemia, unspecified; F90.9 Attention-deficit hyperactivity disorder, unspecified type; F43.10 Post-traumatic stress disorder, unspecified; F32.9 Major depressive disorder, single episode, unspecified; F41.9 Anxiety disorder, unspecified; G25.0 Essential tremor; J45.909 Unspecified asthma, uncomplicated; M79.7 Fibromyalgia; F17.200 Nicotine dependence, unspecified, uncomplicated; Q61.2 Polycystic kidney, adult type; Z98.1 Arthrodesis status
CPT/HCPCS: 66984; J0171; J2250; J2704; J3010; J3301

== ENCOUNTER → 2020-06-24 12:17 | Outpatient (CLI) | payer OTHER, SELFPAY ==
[2020-03-02 15:41] VITALS: BMI 23.8
[2020-06-24 12:22] LABS: Bacteria Urine None Seen; WBC Urine None Seen (0-5/HPF)
[2020-06-24 12:24] LABS: Appearance Urine UA CLEAR; Bilirubin Urine UA NEGATIVE (NEGATIVE); Color Urine UA YELLOW; Glucose Urine UA NEGATIVE (Negative); Ketones Urine UA NEGATIVE (NEGATIVE); Leukocyte Esterase Urine UA NEGATIVE (NEGATIVE); Nitrite Urine UA NEGATIVE (Negative); Occult Blood Urine UA 3+ (Negative); Protein Urine UA NEGATIVE (Negative); Specific Gravity Urine UA <=1.005 (1.000-1.035); Urobilinogen Urine UA 0.2 E.U./dL (0.2)
[2020-06-24 12:28] LABS: pH Urine UA 5.5 (4.5-8.0)
[2020-06-24 12:39] LABS: Culture Indicated Urine Cult Not Indicated; RBC Urine 5-10/HPF (0-5/HPF)
[2020-06-24 13:18] LABS: BUN Creatinine Ratio 28.9 (6-22); Blood Urea Nitrogen 37 mg/dL (7-17); Calcium 9.1 mg/dL (8.4-10.2); Carbon Dioxide 27 mmol/L (22-32); Chloride 96 mmol/L (98-107); Glucose 95 mg/dL (80-110); HEMOLYSIS < 15 (0-50); Potassium 4.9 mmol/L (3.4-5.1); Sodium 129 mmol/L (137-145)
== END ==
PROVIDERS: Family Provider Family Medicine; PCP Family Medicine; Referring Provider Family Medicine; Visit Provider Family Medicine
DX: E87.1 Hypo-osmolality and hyponatremia (principal)
CPT/HCPCS: 36415; 80048; 81001

== ENCOUNTER → 2020-06-30 15:41 | Outpatient (CLI) | payer OTHER, MEDICAID, SELFPAY ==
[2020-03-02 15:41] VITALS: BMI 23.8
[2020-06-30 16:48] LABS: Appearance Urine UA CLEAR; Bilirubin Urine UA NEGATIVE (NEGATIVE); Color Urine UA YELLOW; Glucose Urine UA NEGATIVE (Negative); Ketones Urine UA NEGATIVE (NEGATIVE); Leukocyte Esterase Urine UA NEGATIVE (NEGATIVE); Nitrite Urine UA NEGATIVE (Negative); Occult Blood Urine UA 2+ (Negative); Protein Urine UA NEGATIVE (Negative); Urobilinogen Urine UA 0.2 E.U./dL (0.2)
[2020-06-30 17:01] LABS: Amorphous Sediment Urine 1+; Bacteria Urine Moderate (10-30); RBC Urine 1-5/HPF (0-5/HPF); Squamous Epithelial Cell Urine 1-5 /HPF (0-5/HPF); WBC Urine 1-5/HPF (0-5/HPF)
== END ==
PROVIDERS: Family Provider Family Medicine; PCP Family Medicine; Referring Provider Family Medicine; Visit Provider Family Medicine
DX: R30.0 Dysuria (principal); E87.1 Hypo-osmolality and hyponatremia
CPT/HCPCS: 81001; 87077; 87086

== ENCOUNTER → 2020-07-08 15:40 | Outpatient (CLI) | payer OTHER, MEDICAID, SELFPAY ==
[2020-03-02 15:41] VITALS: BMI 23.8
[2020-07-08 17:54] LABS: BUN Creatinine Ratio 29.9 (6-22); Blood Urea Nitrogen 35 mg/dL (7-17); Calcium 9.7 mg/dL (8.4-10.2); Carbon Dioxide 23 mmol/L (22-32); Chloride 98 mmol/L (98-107); Estimated Glomerular Filt Rate 46.6 mL/min (>60); Glucose 98 mg/dL (80-110); HEMOLYSIS < 15 (0-50); Potassium 5.3 mmol/L (3.4-5.1); Sodium 127 mmol/L (137-145)
== END ==
PROVIDERS: Family Provider Family Medicine; PCP Family Medicine; Referring Provider Family Medicine; Visit Provider Family Medicine
DX: E87.1 Hypo-osmolality and hyponatremia (principal)
CPT/HCPCS: 36415; 80048

== ENCOUNTER → 2020-07-24 09:36 | Outpatient (CLI) | payer OTHER, MEDICAID, SELFPAY ==
[2020-07-15 12:58] VITALS: BMI 23.8
[2020-07-24 11:28] LABS: COVID19 -Nasal RAPID Negative (Negative)
== END ==
PROVIDERS: Family Provider Family Medicine; PCP Family Medicine; Referring Provider Physician Assistant; Visit Provider Physician Assistant
DX: Z20.828 Contact with and (suspected) exposure to other viral communicable diseases (principal)
CPT/HCPCS: 87635

== ENCOUNTER 2020-07-26 11:35 | Day surgery (SDC) | payer OTHER, MEDICAID, SELFPAY ==
[2020-07-15 12:58] VITALS: BMI 23.8
--- NOTE | 2020-07-24 10:53 | PM.PREOP ---
Pre-operative Note COVID-19 COVID-19 status: Negative Interval Note History & Physical reviewed/Exam performed by Physician: Yes Changes to H&P: No
--- NOTE | 2020-07-24 10:57 | PM.OP.1 ---
Operative Date/Time/Diagnoses Date of procedure: 07/24/20 Time of procedure: 12:30 [facility] Procedure: Preoperative diagnoses: 1. Left nuclear sclerotic and cortical cataract. 2. Glaucoma treated with trabeculoplasty. 3. History of periorbitall trauma with facial and blowout fracture status post repair. 4. Recent E coli UTI now clear 5. Anemia with recent blood transfusion. 6. Recent spinal fusion 7. Multiple allergies with no reaction to surgery in May for cataract. 8. Polycystic kidney disease 9. Anxiety Postoperative diagnoses: 1. Cataract removed by phacoemulsification with placement of posterior chamber intraocular lens. Procedure: Phacoemulsification with posterior chamber intraocular lens implant Surgeon: Amanda Clinton MD Complications: None Specimen: None Implant: ZCBOO+18.5. Blood loss: None Anesthesia: Retrobulbar with monitored standby converted to laryngeal mask airway due to anxiety. Description of procedure: Patient presents with a complaint of decreased vision due to cataract which is affecting activities of daily living both distance and near. The patient wants surgery to improve vision. She understands extra risk during the COVID-19 epidemic and wishes to proceed with surgery. She has been medically stabilized for this procedure. She has tested negative. The patient was taken to the operating room and given IV sedation. A retrobulbar block consisting of 6 cc of 2% xylocaine without epinephrine mixed half and half with 0.5% Marcaine with 1 cc of hyaluronidase added is placed between the medial and lateral 1/3 of the inferior orbital rim. There was scar tissue present from her previous orbital fracture repair however was able to obtain a good block. She was unable to lay still and was felt best to add a laryngeal mask airway for her safety. This was done without difficulty The eye is manually massaged for 30 sec, prepped using Betadine solution, and draped in the usual sterile fashion. Temporal approach was made, a 1 mm side-port incision was made 90? from the proposed clear corneal incision position. Phenylephrine 1.5% mixed with 1% xylocaine 0.2 cc was placed into the anterior chamber. Viscoat followed by Healon was then placed. A 2.6 mm clear incision with a 2.6 mm blade was placed. A 360 degree capsulorrhexis style capsulotomy was then performed with a cystitome needle on a Healon. Hydrodelineation and hydrodissection were performed. The phacoemulsification unit is introduced, and sculpting notice used to groove the central lens. It is then removed in chopping mode. Epi nucleus is removed with epinuclear mode and irrigation aspiration was used to remove the peripheral cortex. The posterior capsule is polished. The intraocular lens is selected, inspected, power confirmed, and placed in the posterior chamber. The wound was stromally hydrated and tested for leaks, there was none and it was left sutureless. Vigamox 0.1 cc was placed into the anterior chamber. Kenalog 0.2 cc was placed in the superior subconjunctival space. A drop of antibiotic and was placed and the eye was patched and shielded. The patient was stable and returned to the recovery room in excellent condition. Dictated by: Amanda Clinton MD Copy to: [facility] Same procedure as scheduled: Yes
[2020-07-26] MEDS: PROPARACAINE 0.5% OPHTH SOL 2 DROPS EYE-OP (11:52)
[2020-07-26] MEDS: CATARACT EYE COMPOUND (10 DROPS/SYRINGE) 3 DROPS EYE-OP (11:54)
[2020-07-26 11:58] VITALS: BP 100/65; PULSE 79; RESP 16; TEMP 36.3; O2SAT 98; BMI 22.1
[2020-07-26] MEDS: LACTATED RINGERS 1,000 ML 42 ML IV (12:13)
[2020-07-26] MEDS: PHENYLEPHRINE/LIDOCAINE VIAL (OR) 0.2 ML EYE-OP (13:50)
[2020-07-26] MEDS: TRIAMCINOLONE 50 MG/5 ML VIAL INJ (13:50)
[2020-07-26] MEDS: CHONDROIDTIN/SOD HYALURONATE 1.05 ML SYRINGE INTRAOCULA (13:51)
[2020-07-26] MEDS: HYALURONATE SODIUM 10 MG/ML SYRINGE INJ (13:51)
[2020-07-26] MEDS: MOXIFLOXACIN INJ 5 MG/ML VIAL EYE-OP (13:52)
[2020-07-26] MEDS: LIDOCAINE 2% 4 ML, BUPIVACAINE 0.5% (PF) 4 ML, HYALURONIDASE 150 UNIT INJ (13:53)
[2020-07-26] MEDS: BALANCED SALT IRRIG SOLN NO.2 500 ML, EPINEPHrine 1 MG IRR (13:54)
[2020-07-26] MEDS: NEOMYCIN/POLY/DEX OPHTH OINT 1 APPLIC EYE-LEFT (14:14)
[2020-07-26 14:22] VITALS: BP 122/68; PULSE 76; RESP 20; TEMP 36.5; O2SAT 97
[2020-07-26 14:24] VITALS: BP 117/77; PULSE 78; RESP 24; O2SAT 97
[2020-07-26 14:29] VITALS: BP 113/71; PULSE 83; RESP 24; O2SAT 96
[2020-07-26 14:30] VITALS: BP 109/67; PULSE 80; RESP 16; TEMP 36.6; O2SAT 96
[2020-07-26 14:34] VITALS: BP 110/68; PULSE 79; RESP 24; TEMP 36.8; O2SAT 96
== END 2020-07-26 14:55 | disposition home or self-care (01) ==
LOC: OR 11:36
PROVIDERS: Family Provider Family Medicine; PCP Family Medicine; Referring Provider Family Medicine; Visit Provider Ophthalmology
PROC: (CPT 66984; principal; 2020-07-26 12:30)
DX: H25.812 Combined forms of age-related cataract, left eye (principal); H40.9 Unspecified glaucoma; D64.9 Anemia, unspecified; F41.9 Anxiety disorder, unspecified; M79.7 Fibromyalgia
CPT/HCPCS: 66984; J0171; J2704; J3010; J3301; J3470

== ENCOUNTER → 2020-08-11 10:26 | Outpatient (CLI) | payer MEDICARE, MEDICAID, SELFPAY ==
[2020-07-15 12:58] VITALS: BMI 23.8
[2020-08-11 12:22] LABS: Add Manual Diff / Slide Review NO; Basophils Absolute Auto 100 /uL (0-100); Basophils Percent Auto 0.7 % (0-2); Eosinophils Absolute Auto 300 /uL (0-450); Eosinophils Percent Auto 2.9 % (2-4); Hematocrit 28.6 % (36-46); Hemoglobin 9.5 g/dL (12.0-16.0); Lymphocytes Absolute Auto 2500 /uL (1100-4500); Lymphocytes Percent Auto 22.7 % (25-40); Mean Corpuscular HGB Conc 33.3 % (30-36); Mean Corpuscular Hemoglobin 30.6 PG (26-34); Mean Corpuscular Volume 91.8 fL (80-100); Monocytes Absolute Auto 1000 /uL (0-900); Monocytes Percent Auto 8.7 % (3-14); Neutrophils Absolute Auto 7200 /uL (1500-7000); Platelet Count 368 X10^3/uL (150-400); Red Blood Cell Count 3.11 X10^6/uL (4.0-5.2); Red Cell Distribution Width 17.5 % (11.6-14.8)
[2020-08-11 12:34] LABS: BUN Creatinine Ratio 41.3 (6-22); Blood Urea Nitrogen 38 mg/dL (7-17); Calcium 9.5 mg/dL (8.4-10.2); Carbon Dioxide 25 mmol/L (22-32); Chloride 100 mmol/L (98-107); Estimated Glomerular Filt Rate > 60.0 mL/min (>60); Glucose 79 mg/dL (80-110); HEMOLYSIS < 15 (0-50); Potassium 4.1 mmol/L (3.4-5.1); Sodium 130 mmol/L (137-145)
== END ==
PROVIDERS: Family Provider Family Medicine; PCP Family Medicine; Referring Provider Family Medicine; Visit Provider Family Medicine
DX: D50.9 Iron deficiency anemia, unspecified (principal); E87.1 Hypo-osmolality and hyponatremia
CPT/HCPCS: 36415; 80048; 85025

== ENCOUNTER → 2020-09-10 15:29 | Outpatient (CLI) | payer MEDICARE, SELFPAY ==
[2020-07-15 12:58] VITALS: BMI 23.8
[2020-09-10 16:46] LABS: BUN Creatinine Ratio 20.6 (6-22); Blood Urea Nitrogen 21 mg/dL (7-17); Calcium 9.3 mg/dL (8.4-10.2); Carbon Dioxide 26 mmol/L (22-32); Chloride 103 mmol/L (98-107); Estimated Glomerular Filt Rate 54.6 mL/min (>60); Glucose 119 mg/dL (80-110); HEMOLYSIS < 15 (0-50); Potassium 4.3 mmol/L (3.4-5.1); Sodium 134 mmol/L (137-145)
[2020-09-10 17:36] LABS: Vitamin B12 768 pg/mL (239-931)
== END ==
PROVIDERS: Family Provider Family Medicine; PCP Family Medicine; Referring Provider Family Medicine; Visit Provider Family Medicine
DX: E87.1 Hypo-osmolality and hyponatremia (principal); F32.9 Major depressive disorder, single episode, unspecified; F41.8 Other specified anxiety disorders; F41.9 Anxiety disorder, unspecified; Z86.39 Personal history of other endocrine, nutritional and metabolic disease
CPT/HCPCS: 36415; 80048; 82607

== ENCOUNTER → 2020-11-11 08:48 | Outpatient (CLI) | payer MEDICARE, SELFPAY ==
[2020-07-15 12:58] VITALS: BMI 23.8
[2020-11-11 09:09] LABS: Hemoglobin 11.1 g/dL (12.0-16.0); Mean Corpuscular HGB Conc 32.6 % (30-36); Mean Corpuscular Hemoglobin 29.1 PG (26-34); Mean Corpuscular Volume 89.4 fL (80-100); Platelet Count 375 X10^3/uL (150-400); Red Blood Cell Count 3.81 X10^6/uL (4.0-5.2); Red Cell Distribution Width 13.6 % (11.6-14.8)
[2020-11-11 09:25] LABS: INR 0.9 (0.9-1.3); Prothrombin Time 10.8 SECONDS (10.1-12.7)
[2020-11-11 09:38] LABS: HEMOLYSIS < 15 (0-50); Iron 41 ug/dL (37-170)
[2020-11-11 09:41] LABS: Alanine Aminotransferase 19 IU/L (<35); Albumin 4.3 g/dL (3.5-5.0); Alkaline Phosphatase 106 U/L (38-126); Aspartate Aminotransferase 32 IU/L (14-36); BUN Creatinine Ratio 26.7 (6-22); Bilirubin Total 0.2 mg/dL (0.2-1.3); Blood Urea Nitrogen 27 mg/dL (7-17); Calcium 10.6 mg/dL (8.4-10.2); Carbon Dioxide 28 mmol/L (22-32); Chloride 99 mmol/L (98-107); Estimated Glomerular Filt Rate 55.2 mL/min (>60); Globulin 4.3 g/dL (1.7-4.1); Glucose 88 mg/dL (80-110); HEMOLYSIS < 15 (0-50); Potassium 4.4 mmol/L (3.4-5.1); Sodium 134 mmol/L (137-145); Total Protein 8.6 g/dL (6.3-8.2)
[2020-11-11 09:48] LABS: Percent Iron Saturation 10 % (15-50); Total Iron Binding Capacity 415 ug/dL (265-497); Transferrin 354 mg/dL (206-381)
[2020-11-11 13:17] LABS: Neutrophils Absolute Manual 5120 /uL (3000-5900); Total Cells Counted 100
[2020-11-11 13:19] LABS: RBC Morphology Normal Morphology
== END ==
PROVIDERS: Family Provider Family Medicine; PCP Family Medicine; Referring Provider Family Medicine; Visit Provider Family Medicine
DX: R23.3 Spontaneous ecchymoses (principal)
CPT/HCPCS: 36415; 80053; 83540; 83550; 85025; 85610

== ENCOUNTER → 2020-12-31 09:51 | Outpatient (CLI) | payer MEDICARE, SELFPAY ==
[2020-07-15 12:58] VITALS: BMI 23.8
[2020-12-31 10:59] LABS: Add Manual Diff / Slide Review NO; Basophils Absolute Auto 100 /uL (0-100); Basophils Percent Auto 0.9 % (0-2); Eosinophils Absolute Auto 300 /uL (0-450); Eosinophils Percent Auto 4.5 % (2-4); Hematocrit 33.3 % (36-46); Hemoglobin 11.1 g/dL (12.0-16.0); Lymphocytes Absolute Auto 2200 /uL (1100-4500); Mean Corpuscular HGB Conc 33.2 % (30-36); Mean Corpuscular Hemoglobin 29.7 PG (26-34); Mean Corpuscular Volume 89.6 fL (80-100); Monocytes Absolute Auto 500 /uL (0-900); Monocytes Percent Auto 7.3 % (3-14); Neutrophils Absolute Auto 4200 /uL (1500-7000); Neutrophils Percent Auto 57.3 % (50-75); Platelet Count 386 X10^3/uL (150-400); Red Blood Cell Count 3.72 X10^6/uL (4.0-5.2); Red Cell Distribution Width 14.9 % (11.6-14.8); White Blood Cell Count 7.4 X10^3/uL (4.5-11.0)
[2020-12-31 11:18] LABS: Alanine Aminotransferase 19 IU/L (<35); Albumin 4.2 g/dL (3.5-5.0); Alkaline Phosphatase 83 U/L (38-126); Aspartate Aminotransferase 34 IU/L (14-36); BUN Creatinine Ratio 41.2 (6-22); Bilirubin Total 0.4 mg/dL (0.2-1.3); Blood Urea Nitrogen 54 mg/dL (7-17); Calcium 10.4 mg/dL (8.4-10.2); Carbon Dioxide 25 mmol/L (22-32); Chloride 104 mmol/L (98-107); Estimated Glomerular Filt Rate 40.7 mL/min (>60); Globulin 4.2 g/dL (1.7-4.1); Glucose 94 mg/dL (80-110); HEMOLYSIS < 15 (0-50); Iron 99 ug/dL (37-170); Potassium 4.4 mmol/L (3.4-5.1); Sodium 137 mmol/L (137-145); Total Protein 8.4 g/dL (6.3-8.2)
[2020-12-31 11:30] LABS: Percent Iron Saturation 22 % (15-50); Total Iron Binding Capacity 453 ug/dL (265-497); Transferrin 390 mg/dL (206-381)
[2020-12-31 11:36] LABS: Free T3, Triiodothyronine Free 3.35 pg/mL (2.77-5.27); Free T4, Direct Thyroxine 1.71 ng/dL (0.78-2.19)
[2020-12-31 11:50] LABS: Thyroid Stimulating Hormone < 0.015 uIU/mL (0.47-4.68)
[2020-12-31 12:06] LABS: Vitamin B12 695 pg/mL (239-931)
== END ==
PROVIDERS: Family Provider Family Medicine; PCP Family Medicine; Referring Provider Family Medicine; Visit Provider Family Medicine
DX: E03.9 Hypothyroidism, unspecified (principal); I10 Essential (primary) hypertension; E78.5 Hyperlipidemia, unspecified; E87.1 Hypo-osmolality and hyponatremia; L85.3 Xerosis cutis; R23.3 Spontaneous ecchymoses; Z86.39 Personal history of other endocrine, nutritional and metabolic disease
CPT/HCPCS: 36415; 80053; 82607; 83540; 83550; 84439; 84443; 84481; 85025

== ENCOUNTER → 2021-01-18 15:48 | Outpatient (CLI) | payer MEDICARE, SELFPAY ==
[2020-07-15 12:58] VITALS: BMI 23.8
== END ==
PROVIDERS: Family Provider Family Medicine; PCP Family Medicine; Visit Provider Registered Nurse
DX: N39.0 Urinary tract infection, site not specified (principal)
CPT/HCPCS: 87086

== ENCOUNTER → 2021-01-25 15:22 | Outpatient (CLI) | payer MEDICARE, SELFPAY ==
[2020-07-15 12:58] VITALS: BMI 23.8
[2021-01-25 17:33] LABS: Vitamin B12 600 pg/mL (239-931)
[2021-01-25 20:04] LABS: Appearance Urine UA SL CLOUDY; Bilirubin Urine UA NEGATIVE (NEGATIVE); Color Urine UA ORANGE; Glucose Urine UA NEGATIVE (Negative); Ketones Urine UA NEGATIVE (NEGATIVE); Leukocyte Esterase Urine UA NEGATIVE (NEGATIVE); Nitrite Urine UA NEGATIVE (Negative); Occult Blood Urine UA 3+ (Negative); Protein Urine UA 1+ (Negative); Urobilinogen Urine UA 0.2 E.U./dL (0.2)
[2021-01-25 20:18] LABS: Bacteria Urine Many (>30); Culture Indicated Urine Cult Not Indicated; RBC Urine 30-100/HPF (0-5/HPF); Squamous Epithelial Cell Urine 5-10 /HPF (0-5/HPF); WBC Urine 1-5/HPF (0-5/HPF)
[2021-01-27 01:11] LABS: Zinc 68 ug/dL (44-115)
== END ==
PROVIDERS: Family Provider Family Medicine; PCP Family Medicine; Referring Provider Registered Nurse; Visit Provider Registered Nurse
DX: K13.0 Diseases of lips (principal); N39.0 Urinary tract infection, site not specified; R31.9 Hematuria, unspecified
CPT/HCPCS: 36415; 81001; 82607; 84630

== ENCOUNTER 2021-02-03 09:01 | Emergency (ER) | payer MEDICARE, SELFPAY ==
[2020-07-15 12:58] VITALS: BMI 23.8
[2021-02-03] VITALS (15 sets, daily range): BP systolic 120–145; BP diastolic 65–76; PULSE 75–96; RESP 12–51; TEMP 36.4–36.6; O2SAT 89–100; BMI 22.8
--- NOTE | 2021-02-03 10:35 | ED.AMS ---
HPI - Altered Mental Status General Chief Complaint: Altered Mental Status Stated Complaint: Fall last night,found this morning Time Seen by Provider: 02/03/21 10:16 Source: patient and other (friend that lives with patient for the past year) Mode of arrival: Wheelchair Limitations: altered mental status History of Present Illness HPI narrative: This is a 65-year-old female who comes emergency department for altered mental status, recurrent falls. Patient lives at home with a friend she has been living with her for the past year. He states she was doing well until the past week when she has become more somnolent, she has been falling frequently and had increasing confusion. Patient he noted had changes shortly after visiting Dr. Perkins and having the prescription for pain medications including narcotics. Patient does have multiple bruises on her face. She was found in the kitchen this morning. He states she went to bed early last night, she had thought she was in the bathroom and thought she had fallen and there. She states she did think she hit her head on the sink. Patient complains of pain in her lower back and left hip. Patient does have a history of history of hypertension, dyslipidemia she has had lower lumbar surgery in the past. She has had hyponatremia in the past as well. She does also have known polycystic kidney and has had issues with substance abuse in the past. She states she has had a history of seizures in the past, she see Neurology but is unclear of the source or cause is. She is adamant she does not wish to see the neurologist again. Patient has a history of prior back surgery, knee and neck surgery not recently. She states she has many allergies to medications. No tobacco, alcohol. Patient does use THC regularly. She follows with Dr. Tristan as her PCP. Related Data Home Medications Medication Instructions Recorded Confirmed cholecalciferol (vitamin D3) 250 10,000 iu PO QDAY #0 03/28/17 01/11/21 mcg (10,000 unit) tablet aspirin 325 mg tablet 325 mg PO DAILY 04/08/19 01/11/21 bisacodyl 5 mg tablet 15 mg PO BEDTIME tab 04/08/19 01/11/21 potassium chloride 10 mEq 10 meq PO 3XW 04/08/19 01/11/21 capsule,extended release acetaminophen 500 mg capsule 1,000 mg PO Q6H PRN 02/24/20 01/11/21 levetiracetam 500 mg tablet 500 mg PO BID 04/08/20 01/11/21 Previous Rx's Medication Instructions Recorded docusate sodium 100 mg capsule 100 mg PO BID PRN #30 cap 03/04/20 (DOK) cetirizine 10 mg tablet (Zyrtec) 10 mg PO DAILY #90 tab 03/30/20 diphenhydramine HCl 25 mg capsule 50 mg PO TID PRN #60 cap 03/30/20 magnesium oxide 800 mg PO DAILY #90 cap 03/30/20 quetiapine 25 mg tablet 25 mg PO BEDTIME #20 tab 08/28/20 conjugated estrogens 1.25 mg 1.25 mg PO DAILY #90 tab 11/18/20 tablet (Premarin) sumatriptan succinate 100 mg tablet 100 mg PO DAILY PRN #60 tab MDD 2 12/03/20 tabs daily albuterol sulfate 90 mcg/actuation 2 puff INHALATION Q4-6H PRN #6.7 12/08/20 aerosol inhaler (ProAir HFA) gram baclofen 10 mg tablet 10 mg PO TID #270 tab 12/08/20 esomeprazole magnesium 40 mg 40 mg PO DAILY #90 cap 12/08/20 capsule,delayed release (Nexium) fluticasone furoate 50 1 inh INHALATION DAILY #30 ea 12/08/20 mcg/actuation blister powder for inhalation furosemide 20 mg tablet 20 mg PO QDAY #90 tab 12/08/20 levothyroxine 125 mcg tablet 125 mcg PO QDAY #90 tab 12/08/20 (Synthroid) simvastatin 40 mg tablet 40 mg PO BEDTIME #90 tab 12/08/20 triamcinolone acetonide 0.1 % 1 applic TOP DAILY #15 gram 12/08/20 topical ointment zolpidem 10 mg tablet 10 mg PO BEDTIME PRN #90 tab 12/08/20 losartan 100 mg tablet 100 mg PO DAILY #90 tab 12/09/20 spironolactone 25 mg tablet 25 mg PO DAILY #90 tab 12/09/20 fluticasone propionate 50 1 spray INTRANASAL BID PRN #15.8 ml 12/15/20 mcg/actuation nasal spray,suspension lorazepam 0.5 mg tablet 0.5 mg PO TID PRN #90 tab 01/11/21 promethazine 25 mg tablet 25 mg PO QID #120 tab 01/11/21 propranolol 10 mg tablet 10 mg PO BID #180 tab 01/11/21 fluconazole 150 mg tablet 150 mg PO .COMPLEX #2 tab 01/18/21 (Diflucan) ciprofloxacin HCl 500 mg tablet 500 mg PO BID #14 tab 01/25/21 oxycodone 10 mg tablet 10 mg PO TID PRN #90 tab 01/26/21 Allergies Allergy/AdvReac Type Severity Reaction Status Date / Time adhesive [ADHESIVE] Allergy Severe RASH Verified 01/11/21 14:01 doxycycline [DOXYCYCLINE] Allergy Severe Rash Verified 01/11/21 14:01 ketorolac [KETOROLAC] Allergy Severe HIVES, Verified 01/11/21 14:01 Renal insufficiency lithium [LITHIUM] Allergy Severe RASH, Verified 01/11/21 14:01 ERYTHEMA morphine [MORPHINE] Allergy Severe ITCHING, Verified 01/11/21 14:01 Nausea onabotulinumtoxinA Allergy Severe RASH, Verified 01/11/21 14:01 FACIAL SWELLING Penicillins [PENICILLINS] Allergy Severe ANAPHYLAXIS Verified 01/11/21 14:01 risperidone [RISPERIDONE] Allergy Severe RASH Verified 01/11/21 14:01 tramadol [TRAMADOL] Allergy Severe Instant Verified 01/11/21 14:01 Hives, welts hydroxyzine [HYDROXYZINE] Allergy Intermediate rash Verified 01/11/21 14:01 lisinopril [LISINOPRIL] Allergy Intermediate Rash, COUGH Verified 01/11/21 14:01 erythromycin base Allergy Mild Anaphylaxis Verified 01/11/21 14:01 [ERYTHROMYCIN BASE] nortriptyline [NORTRIPTYLINE] Allergy Mild RASH, Verified 01/11/21 14:01 Depression bromide salts [BROMIDE SALTS] Allergy Unknown Pt unsure Verified 01/11/21 14:01 of reaction estradiol [ESTRADIOL] Allergy Unknown Pt unsure Verified 01/11/21 14:01 of reaction etodolac [ETODOLAC] Allergy Unknown Hives, Verified 01/11/21 14:01 Renal insufficiency nickel [NICKEL] Allergy Unknown Rash, skin Verified 01/11/21 14:01 bleeds nitrofurantoin Allergy Unknown PT UNSURE Verified 01/11/21 14:01 [NITROFURANTOIN] OF REACTION NSAIDS (Non-Steroidal Allergy Unknown Hives, Verified 01/11/21 14:01 Anti-Inflamma Renal [NSAIDS (NON-STEROIDAL insufficiency ANTI-INFLAMMA] tiotropium [TIOTROPIUM] Allergy Unknown REACTION Verified 01/11/21 14:01 NOT LISTED tromethamine [TROMETHAMINE] Allergy Unknown Hives, PKD Verified 01/11/21 14:01 verapamil [VERAPAMIL] Allergy Unknown Pt unsure Verified 01/11/21 14:01 of reaction zonisamide [ZONISAMIDE] Allergy Unknown Pt unsure Verified 01/11/21 14:01 of reaction Iodinated Contrast Media Allergy IT WAS Verified 01/11/21 14:01 VERY BAD sulfasalazine Allergy Hives, Verified 01/11/21 14:01 vomiting codeine [CODEINE] AdvReac Severe Vomiting Verified 01/11/21 14:01 duloxetine [From CYMBALTA] AdvReac Severe MOUTH Verified 01/11/21 14:01 SORES hydrocodone [From VICODIN] AdvReac Severe VOMITING Verified 01/11/21 14:01 methocarbamol [METHOCARBAMOL] AdvReac Severe VOMITING Verified 01/11/21 14:01 azithromycin [AZITHROMYCIN] AdvReac Intermediate NAUSEA, Verified 01/11/21 14:01 VOMITING carbamazepine [CARBAMAZEPINE] AdvReac Intermediate VOMITING Verified 01/11/21 14:01 amitriptyline [AMITRIPTYLINE] AdvReac Mild MORE Verified 01/11/21 14:01 DEPRESSED, Itching cyclobenzaprine AdvReac Mild VOMIT Verified 01/11/21 14:01 [CYCLOBENZAPRINE] desvenlafaxine AdvReac Mild VOMIT Verified 01/11/21 14:01 [DESVENLAFAXINE] gabapentin AdvReac Mild MORE Verified 01/11/21 14:01 DEPRESSED divalproex sodium AdvReac Unknown Nausea, Verified 01/11/21 14:01 [DIVALPROEX SODIUM] shortness of breath sertraline [SERTRALINE] AdvReac Unknown Makes me Verified 01/11/21 14:01 feel more depressed Sulfa (Sulfonamide AdvReac Unknown VOMITING Verified 01/11/21 14:01 Antibiotics) *ABLE TO [SULFA (SULFONAMIDE TAKE ANTIBIOTICS)] LEVAQUIN ABX ONLY* Review of Systems Review of Systems ROS Unobtainable: All systems reviewed & are unremarkable except as noted in HPI and below Patient History Medical History (Updated 02/03/21 @ 14:22 by Marianna Gallardo DO) ADHD Allergies Anemia Ankle pain Anxiety Anxiety about health Anxiety and depression Benign familial tremor Bipolar 1 disorder Cervical somatic dysfunction Cervical spine disease (~2014) Cheilitis Chicken pox Chronic lumbar pain Chronic neck pain Cranial somatic dysfunction Depression Diverticular disease Dry skin Dysuria Ecchymoses, spontaneous Fibromyalgia Glaucoma Headache History of falling History of non anemic vitamin B12 deficiency Hyperlipidemia Hypertension Hyponatremia with decreased serum osmolality Insomnia secondary to depression with anxiety Irritable bowel syndrome Kidney disease Measles Migraine headache Osteoarthritis Pelvic somatic dysfunction Postnasal drip Recurrent sinusitis Recurrent sinusitis Requires assistance with activities of daily living (ADL) Resting tremor Rheumatoid arthritis Segmental and somatic dysfunction of abdomen and other regions Segmental and somatic dysfunction of lumbar region Segmental and somatic dysfunction of sacral region Segmental and somatic dysfunction of thoracic region Segmental dysfunction of rib cage Swallowing difficulty Urinary tract infection Vertigo Vision disorder Surgical History Anesthesia H/O ventral hernia repair History of appendectomy History of arthroplasty of right knee (01/2019) History of bilateral salpingo-oophorectomy History of section History of cholecystectomy History of colonoscopy History of reduction mammoplasty History of spinal surgery (~2015) History of tonsillectomy History of total abdominal hysterectomy Family History Father History of heart disease Hypertension Hyperlipidemia Mother Diabetes mellitus History of heart disease Hyperlipidemia Hypertension Mental health problem Brother No problems noted. Brother Leukemia History of heart disease Diabetes mellitus Sister Kidney disease Alcoholic Mental health problem Grandfather History of heart disease Hypertension Grandmother Cancer Grandfather Hypertension History of heart disease Grandmother Low blood pressure Family/Other Mental health problem Social History household members: significant other Smoking Status: Former smoker alcohol intake: former Smoking Status: Former smoker alcohol intake frequency: other Substance Use Type: former substance user, marijuana, painkillers and prescription drug Exam Narrative Exam Narrative: GEN: Patient appears in mild distress. HEAD: Patient has multiple areas of ecchymosis and hematoma on her anterior forehead as well as erythema and bruising on her nose and cheeks consistent with multiple injuries over time, no raccoon/Chavez sign. NECK: Nontender, painless range of motion, trachea midline EYES: PERRLA, EOMI ENT: External inspection normal other than above, trachea is midline, TM's are normal no hemotypanum, Nares are clear, no septal hematoma, no dental or oral injury, airway is normal and with normal occlusion, No bony tenderness RESP: Chest is nontender and has symmetric movement, no ecchymosis, breath sounds are normal no crackles, wheezes or rales CVS: Heart sounds are normal, no murmur noted, No JVD. ABG/GI: Nontender, soft, normal bowel sounds, no distention, no organomegaly, pelvic rock is negative NEURO: Oriented A oriented to place, neuro is grossly intact, sensation and motor is normal all 4 extremities moving, cranial nerves II through XII are intact, GCS is 14 PSYCH: Normal mood and affect SKIN: Intact, warm and dry, no crepitus and without decubitus, patient has ecchymosis bilateral lower extremities particularly over the knees and forearms BACK: No CVA tenderness, no vertebral tenderness, no step-off's, no crepitus EXT: Atraumatic, patient has mild tenderness of the left hip although she is able to independently reasonable that through full range of motion, nontender on the right, no pedal edema, normal color and temperature, normal range of motion of extremities with normal tendon exam, 2+ pulses in all four extremities Initial Vital Signs Initial Vital Signs: Vital Signs Temperature 98 F 02/03/21 09:27 Pulse Rate 96 H 02/03/21 09:27 Respiratory Rate 18 02/03/21 09:27 Blood Pressure 125/70 02/03/21 09:27 Pulse Oximetry 99 02/03/21 09:27 Scores GCS Judith coma scale eye opening: Spontaneous Judith coma scale verbal response: Confused [place] coma scale motor response: Obey commands Judith coma scale total score: 14 Course Orders Ordered: ED Orders 02/03/21 11:30 Blood Culture Stat 02/03/21 12:00 COVID19 - ADMIT (INSURANCE SALESPERSON swab/PCR) Stat 02/03/21 13:52 Urinalysis and Microscopic Stat Urine Drug Screen, Rapid Stat 02/03/21 14:34 Consult to AUDIOVISUAL LEAD TECHNICIAN - Field Service Rep Stat 02/03/21 14:44 Potassium Stat 02/03/21 16:02 Consult to Home Health Stat Discontinued Medications Ciprofloxacin (Ciprofloxacin 250 Mg Tablet) 500 mg PO NOW ONE Stop: 02/03/21 14:35 Last Admin: 02/03/21 14:45 Dose: Not Given Documented by: DIANA Sodium Chloride (Normal Saline 0.9%) 1,000 mls @ 150 mls/hr IV CONT PAYTON Last Infusion: 02/03/21 11:52 Dose: 0 mls/hr Documented by: Admin: 02/03/21 10:43 Dose: 1,000 mls/hr Documented by: DESTINI Sodium Chloride (Normal Saline 0.9%) 1,000 mls @ 1,000 mls/hr IV BOLUS ONE Stop: 02/03/21 11:43 Last Admin: 02/03/21 10:51 Dose: Not Given Documented by: DESTINI Lorazepam (Lorazepam 2 Mg/Ml Inj) 1 mg IV NOW ONE Stop: 02/03/21 13:40 Last Admin: 02/03/21 13:42 Dose: 1 mg Documented by: DESTINI Potassium Chloride (Potassium Chloride 20 Meq/15 Ml Udc) 40 meq PO NOW ONE Stop: 02/03/21 12:47 Last Admin: 02/03/21 13:09 Dose: 40 meq Documented by: FLORESITA Reevaluation(s) Reevaluation #1: Patient is able to ambulate in the department, she does seem to have a psychiatric component. She is not currently willing to talk to anyone about this although she did talk to our marriage and family social worker. She does have a history of bipolar. She does not wished to pursue any psychiatric treatment. We discussed that I do not have anything to keep her for medically at this time and she is now ambulating safely and her mentation has been slowly improving although I suspect she is continuing to have some psychiatric issues. Patient states she is not taking her Keppra at this time. There have not been any witnessed seizures from her roommate, patient is not where or sharing any episodes. She does not wish to return her neurologist this time. Consultations Consultation #1: Spoke with Dr. Marlow, discussed with patient I suspect she had a combination of psychiatric disorder and some polysubstance abuse which has been causing her symptoms recently. There is potential for seizure activity she did have prolactin elevated but she has not had any witnessed seizure activity by her roommate. He defers admission at this time. Consultation #2: social work, did evaluate patient here in the department. They were able to work on setting of patient with home health care. They also spoke with patient's primary care physician about our concerns today. Vital Signs Vital signs: Vital Signs - 8 hr 02/03/21 12:46 02/03/21 13:00 02/03/21 13:30 Temperature Pulse Rate 91 H Respiratory Rate 17 17 Blood Pressure 142/65 H Pulse Oximetry 94 95 02/03/21 14:02 02/03/21 14:09 02/03/21 17:15 Temperature 97.5 F L Pulse Rate 87 92 H 75 Respiratory Rate 16 14 16 Blood Pressure 140/69 140/69 120/74 Pulse Oximetry 96 96 MDM - Altered Mental Status Lab Data Result diagrams: 02/03/21 10:23 02/03/21 14:44 Labs: Lab Results 02/03/21 02/03/21 02/03/21 Range/Units 10:23 10:23 10:23 WBC 7.0 (4.5-11.0) X10^3/uL RBC 3.23 L (4.0-5.2) X10^6/uL Hgb 9.5 L (12.0-16.0) g/dL Hct 29.1 L (36-46) % MCV 90.3 (80-100) fL MCH 29.5 (26-34) PG MCHC 32.6 (30-36) % RDW 15.1 H (11.6-14.8) % Plt Count 390 (150-400) X10^3/uL Neut % (Auto) 63.1 (50-75) % Lymph % (Auto) 26.1 (25-40) % Long % (Auto) 9.1 (3-14) % Eos % (Auto) 1.0 L (2-4) % Baso % (Auto) 0.7 (0-2) % Neut # (Auto) 4400 (5776-4231) /uL Lymph # (Auto) 1800 (9843-0519) /uL Long # (Auto) 600 (0-900) /uL Eos # (Auto) 100 (0-450) /uL Baso # (Auto) 0 (0-100) /uL Sodium 138 (137-145) mmol/L Potassium 2.9 L (3.4-5.1) mmol/L Chloride 104 (98-107) mmol/L Carbon Dioxide 24 (22-32) mmol/L BUN 30 H (7-17) mg/dL Creatinine 1.49 H (0.52-1.04) mg/dL Estimated GFR 35.1 L (>60) mL/min BUN/Creatinine Ratio 20.1 (6-22) Glucose 81 (80-110) mg/dL Lactate 0.5 L (0.7-2.1) mmol/L Calcium 9.8 (8.4-10.2) mg/dL Total Bilirubin 0.3 (0.2-1.3) mg/dL AST 98 H (14-36) IU/L ALT 41 H (<35) IU/L Alkaline Phosphatase 55 (38-126) U/L Ammonia (9-30) umol/L Total Creatine Kinase 707 H (30-135) U/L CK-MB (CK-2) 8.36 H (<2.37) ng/mL CK-MB (CK-2) Rel Index 1.2 L (1.5-5.0) % Troponin I 0.020 (0.01-0.034) ng/mL Total Protein 7.3 (6.3-8.2) g/dL Albumin 3.9 (3.5-5.0) g/dL Globulin 3.4 (1.7-4.1) g/dL Albumin/Globulin Ratio 1.1 (1.0-2.8) Lipase 45 (23-300) U/L TSH (0.47-4.68) uIU/mL Thyroxine (T4) (5.5-11.0) ug/dL Free T3 (2.77-5.27) pg/mL Prolactin 38.6 H (3.0-18.6) ng/mL Urine Color Urine Appearance Urine pH (4.5-8.0) Ur Specific [place] (1.000-1.035) Urine Protein (Negative) Urine Glucose (UA) (Negative) g/dL Urine Ketones (NEGATIVE) Urine Occult Blood (Negative) Urine Nitrate (Negative) Urine Bilirubin (NEGATIVE) Urine Urobilinogen (0.2) E.U./dL Ur Leukocyte Esterase (NEGATIVE) Urine RBC (0-5/HPF) Urine WBC (0-5/HPF) Ur Squamous Epith Cells (0-5/HPF) Urine Bacteria (None) Ur Culture Indicated? Salicylates 4.6 (<20) mg/dL U Opiates 300ng/mL cut (Negative) Ur Oxycodone Screen (Negative) Urine Methadone Screen (Negative) Acetaminophen < 10 L (10-30) ug/mL Ur Barbiturates Screen (Negative) U Tricyclic Antidepress (Negative) Ur Phencyclidine Scrn (Negative) Ur Amphetamines Screen (Negative) U Methamphetamines Scrn (Negative) Ur MDMA Scrn (Ecstasy) (Negative) U Benzodiazepines Scrn (Negative) Urine Cocaine Screen (Negative) U Marijuana (THC) Screen (Negative) Ethyl Alcohol < 10 ( - 10) mg/dL SARS-CoV-2 (PCR) (Negative) 02/03/21 02/03/21 02/03/21 Range/Units 10:23 10:23 10:23 WBC (4.5-11.0) X10^3/uL RBC (4.0-5.2) X10^6/uL Hgb (12.0-16.0) g/dL Hct (36-46) % MCV (80-100) fL MCH (26-34) PG MCHC (30-36) % RDW (11.6-14.8) % Plt Count (150-400) X10^3/uL Neut % (Auto) (50-75) % Lymph % (Auto) (25-40) % Long % (Auto) (3-14) % Eos % (Auto) (2-4) % Baso % (Auto) (0-2) % Neut # (Auto) (0623-4085) /uL Lymph # (Auto) (7095-5883) /uL Long # (Auto) (0-900) /uL Eos # (Auto) (0-450) /uL Baso # (Auto) (0-100) /uL Sodium (137-145) mmol/L Potassium (3.4-5.1) mmol/L Chloride (98-107) mmol/L Carbon Dioxide (22-32) mmol/L BUN (7-17) mg/dL Creatinine (0.52-1.04) mg/dL Estimated GFR (>60) mL/min BUN/Creatinine Ratio (6-22) Glucose (80-110) mg/dL Lactate (0.7-2.1) mmol/L Calcium (8.4-10.2) mg/dL Total Bilirubin (0.2-1.3) mg/dL AST (14-36) IU/L ALT (<35) IU/L Alkaline Phosphatase (38-126) U/L Ammonia < 9 L (9-30) umol/L Total Creatine Kinase (30-135) U/L CK-MB (CK-2) (<2.37) ng/mL CK-MB (CK-2) Rel Index (1.5-5.0) % Troponin I (0.01-0.034) ng/mL Total Protein (6.3-8.2) g/dL Albumin (3.5-5.0) g/dL Globulin (1.7-4.1) g/dL Albumin/Globulin Ratio (1.0-2.8) Lipase (23-300) U/L TSH < 0.015 L (0.47-4.68) uIU/mL Thyroxine (T4) 9.88 (5.5-11.0) ug/dL Free T3 2.40 L (2.77-5.27) pg/mL Prolactin (3.0-18.6) ng/mL Urine Color Urine Appearance Urine pH (4.5-8.0) Ur Specific [place] (1.000-1.035) Urine Protein (Negative) Urine Glucose (UA) (Negative) g/dL Urine Ketones (NEGATIVE) Urine Occult Blood (Negative) Urine Nitrate (Negative) Urine Bilirubin (NEGATIVE) Urine Urobilinogen (0.2) E.U./dL Ur Leukocyte Esterase (NEGATIVE) Urine RBC (0-5/HPF) Urine WBC (0-5/HPF) Ur Squamous Epith Cells (0-5/HPF) Urine Bacteria (None) Ur Culture Indicated? Salicylates (<20) mg/dL U Opiates 300ng/mL cut (Negative) Ur Oxycodone Screen (Negative) Urine Methadone Screen (Negative) Acetaminophen (10-30) ug/mL Ur Barbiturates Screen (Negative) U Tricyclic Antidepress (Negative) Ur Phencyclidine Scrn (Negative) Ur Amphetamines Screen (Negative) U Methamphetamines Scrn (Negative) Ur MDMA Scrn (Ecstasy) (Negative) U Benzodiazepines Scrn (Negative) Urine Cocaine Screen (Negative) U Marijuana (THC) Screen (Negative) Ethyl Alcohol ( - 10) mg/dL SARS-CoV-2 (PCR) (Negative) 02/03/21 02/03/21 02/03/21 Range/Units 12:00 13:52 13:52 WBC (4.5-11.0) X10^3/uL RBC (4.0-5.2) X10^6/uL Hgb (12.0-16.0) g/dL Hct (36-46) % MCV (80-100) fL MCH (26-34) PG MCHC (30-36) % RDW (11.6-14.8) % Plt Count (150-400) X10^3/uL Neut % (Auto) (50-75) % Lymph % (Auto) (25-40) % Long % (Auto) (3-14) % Eos % (Auto) (2-4) % Baso % (Auto) (0-2) % Neut # (Auto) (9450-8512) /uL Lymph # (Auto) (6479-8420) /uL Long # (Auto) (0-900) /uL Eos # (Auto) (0-450) /uL Baso # (Auto) (0-100) /uL Sodium (137-145) mmol/L Potassium (3.4-5.1) mmol/L Chloride (98-107) mmol/L Carbon Dioxide (22-32) mmol/L BUN (7-17) mg/dL Creatinine (0.52-1.04) mg/dL Estimated GFR (>60) mL/min BUN/Creatinine Ratio (6-22) Glucose (80-110) mg/dL Lactate (0.7-2.1) mmol/L Calcium (8.4-10.2) mg/dL Total Bilirubin (0.2-1.3) mg/dL AST (14-36) IU/L ALT (<35) IU/L Alkaline Phosphatase (38-126) U/L Ammonia (9-30) umol/L Total Creatine Kinase (30-135) U/L CK-MB (CK-2) (<2.37) ng/mL CK-MB (CK-2) Rel Index (1.5-5.0) % Troponin I (0.01-0.034) ng/mL Total Protein (6.3-8.2) g/dL Albumin (3.5-5.0) g/dL Globulin (1.7-4.1) g/dL Albumin/Globulin Ratio (1.0-2.8) Lipase (23-300) U/L TSH (0.47-4.68) uIU/mL Thyroxine (T4) (5.5-11.0) ug/dL Free T3 (2.77-5.27) pg/mL Prolactin (3.0-18.6) ng/mL Urine Color Yellow Urine Appearance Sl cloudy Urine pH 5.5 (4.5-8.0) Ur Specific [place] 1.015 (1.000-1.035) Urine Protein Trace H (Negative) Urine Glucose (UA) Negative (Negative) g/dL Urine Ketones 1+ H (NEGATIVE) Urine Occult Blood 3+ H (Negative) Urine Nitrate Negative (Negative) Urine Bilirubin Negative (NEGATIVE) Urine Urobilinogen 0.2 (0.2) E.U./dL Ur Leukocyte Esterase Negative (NEGATIVE) Urine RBC 5-10/hpf H (0-5/HPF) Urine WBC 5-10/hpf H (0-5/HPF) Ur Squamous Epith Cells 5-10 /hpf H (0-5/HPF) Urine Bacteria Moderate (10-30) H (None) Ur Culture Indicated? Cult not indicated Salicylates (<20) mg/dL U Opiates 300ng/mL cut Negative (Negative) Ur Oxycodone Screen Positive H (Negative) Urine Methadone Screen Negative (Negative) Acetaminophen (10-30) ug/mL Ur Barbiturates Screen Negative (Negative) U Tricyclic Antidepress Negative (Negative) Ur Phencyclidine Scrn Negative (Negative) Ur Amphetamines Screen Negative (Negative) U Methamphetamines Scrn Negative (Negative) Ur MDMA Scrn (Ecstasy) Negative (Negative) U Benzodiazepines Scrn Positive H (Negative) Urine Cocaine Screen Negative (Negative) U Marijuana (THC) Screen Positive H (Negative) Ethyl Alcohol ( - 10) mg/dL SARS-CoV-2 (PCR) Negative (Negative) 02/03/21 Range/Units 14:44 WBC (4.5-11.0) X10^3/uL RBC (4.0-5.2) X10^6/uL Hgb (12.0-16.0) g/dL Hct (36-46) % MCV (80-100) fL MCH (26-34) PG MCHC (30-36) % RDW (11.6-14.8) % Plt Count (150-400) X10^3/uL Neut % (Auto) (50-75) % Lymph % (Auto) (25-40) % Long % (Auto) (3-14) % Eos % (Auto) (2-4) % Baso % (Auto) (0-2) % Neut # (Auto) (7375-7560) /uL Lymph # (Auto) (9851-0660) /uL Long # (Auto) (0-900) /uL Eos # (Auto) (0-450) /uL Baso # (Auto) (0-100) /uL Sodium (137-145) mmol/L Potassium 3.6 (3.4-5.1) mmol/L Chloride (98-107) mmol/L Carbon Dioxide (22-32) mmol/L BUN (7-17) mg/dL Creatinine (0.52-1.04) mg/dL Estimated GFR (>60) mL/min BUN/Creatinine Ratio (6-22) Glucose (80-110) mg/dL Lactate (0.7-2.1) mmol/L Calcium (8.4-10.2) mg/dL Total Bilirubin (0.2-1.3) mg/dL AST (14-36) IU/L ALT (<35) IU/L Alkaline Phosphatase (38-126) U/L Ammonia (9-30) umol/L Total Creatine Kinase (30-135) U/L CK-MB (CK-2) (<2.37) ng/mL CK-MB (CK-2) Rel Index (1.5-5.0) % Troponin I (0.01-0.034) ng/mL Total Protein (6.3-8.2) g/dL Albumin (3.5-5.0) g/dL Globulin (1.7-4.1) g/dL Albumin/Globulin Ratio (1.0-2.8) Lipase (23-300) U/L TSH (0.47-4.68) uIU/mL Thyroxine (T4) (5.5-11.0) ug/dL Free T3 (2.77-5.27) pg/mL Prolactin (3.0-18.6) ng/mL Urine Color Urine Appearance Urine pH (4.5-8.0) Ur Specific [place] (1.000-1.035) Urine Protein (Negative) Urine Glucose (UA) (Negative) g/dL Urine Ketones (NEGATIVE) Urine Occult Blood (Negative) Urine Nitrate (Negative) Urine Bilirubin (NEGATIVE) Urine Urobilinogen (0.2) E.U./dL Ur Leukocyte Esterase (NEGATIVE) Urine RBC (0-5/HPF) Urine WBC (0-5/HPF) Ur Squamous Epith Cells (0-5/HPF) Urine Bacteria (None) Ur Culture Indicated? Salicylates (<20) mg/dL U Opiates 300ng/mL cut (Negative) Ur Oxycodone Screen (Negative) Urine Methadone Screen (Negative) Acetaminophen (10-30) ug/mL Ur Barbiturates Screen (Negative) U Tricyclic Antidepress (Negative) Ur Phencyclidine Scrn (Negative) Ur Amphetamines Screen (Negative) U Methamphetamines Scrn (Negative) Ur MDMA Scrn (Ecstasy) (Negative) U Benzodiazepines Scrn (Negative) Urine Cocaine Screen (Negative) U Marijuana (THC) Screen (Negative) Ethyl Alcohol ( - 10) mg/dL SARS-CoV-2 (PCR) (Negative) Point of Care Testing Glucose POC 81 Urine Dip Bedside Urine Glucose Negative Bedside Urine Bilirubin - Negative Bedside Urine Ketone + 15 Urine Specific [place] 1.020 Bedside Urine Occult Blood +++ Bedside Urine pH 6 Bedside Urine Protein - Negative Bedside Urine Urobilinogen - Negative Bedside Urine Nitrite - Negative Bedside Urine Leukocytes - Negative Esterase Imaging Data CT scan - head: Radiologist's Impression: [address] [id number] Scan ReportSigned Patient: Mei Sen MMR#: [id number]: [id number]:[id number]/Sex: 65 / FDate of Service: 02/03/21Loc: EDAccession Number: [id number] Procedure: CT head/brain wo con Ordering Provider: Marianna Gallardo D.O. PROCEDURE: CT HEAD/BRAIN WO CON INDICATIONS: recurrent falls, hip, back pain, confused. TECHNIQUE: Noncontrast 4.5 mm thick angled axial sections acquired from the foramen magnum to the vertex, with coronal and sagittal reformats. For radiation dose reduction, the following was used: automated exposure control, adjustment of mA and/or kV according to patient size. COMPARISON: None. FINDINGS: Image quality: Excellent. CSF spaces: Basal cisterns are patent. No extra-axial fluid collections. Ventricles are normal in size and shape. Brain: No midline shift. No intracranial masses or hemorrhage. Simpson-white matter interface is normal. Skull and face: Calvarium and visualized facial bones are intact, without suspicious lesions. Sinuses: Visualized sinuses and mastoids are clear. IMPRESSION: No trauma found. Dictated by: Esa Avila M.D. on 02/03/2021 at 11:15 Approved by: Esa Avila M.D. on 02/03/2021 at 11:15 Lspine xray: Radiologist's Impression: [address] [id number] ReportSigned Patient: Mei Sen MMR#: [id number]: [id number]:[id number]/Sex: 65 / FDate of Service: 02/03/21Loc: EDAccession Number: [id number] Procedure: XR lumbar spine 2-3V Ordering Provider: Marianna Gallardo D.O. PROCEDURE: XR LUMBAR SPINE 2-3V INDICATIONS: recurrent falls, hip, back pain, confused. TECHNIQUE: 3 views of the lumbar spine were acquired. COMPARISON: [facility], , XR LUMBAR SPINE 2-3V, 03/02/2020, 11:32. [facility], , L-SPINE MINIMUM 4 VIEWS, 03/29/2017, 10:43. FINDINGS: Bones: 5 oie-hnx-tqnwdoe vertebrae are present. There is normal bony alignment. No vertebral body compression fractures. No suspicious bony lesions. Soft tissues: Overlying bowel gas pattern is normal. No suspicious soft tissue calcifications. IMPRESSION: Prior spine fusion surgery, previously documented, no trauma found. Dictated by: Esa Avila M.D. on 02/03/2021 at 11:14 Approved by: Esa Avila M.D. on 02/03/2021 at 11:15 Extremity x-ray #1: Radiologist's Impression: Mei Sen 65 F [address] [id number] ReportSigned Patient: Mei Sen [facility]#: [id number]: [id number]:[id number]/Sex: 65 / FDate of Service: 02/03/21Loc: EDAccession Number: [id number] Procedure: XR hip w pel if done LT 2V Ordering Provider: Marianna Gallardo D.O. PROCEDURE: XR HIP W PEL IF DONE LT 2V INDICATIONS: recurrent falls, hip, back pain, confused. TECHNIQUE: AP pelvis with lateral view(s) of the left hip(s). COMPARISON: None. FINDINGS: Bones: No fractures or dislocations. Pelvic ring appears intact. No suspicious bony lesions. Soft tissues: The visualized bowel gas pattern is normal. No suspicious soft tissue calcifications. IMPRESSION: No trauma found. Dictated by: Esa Avila M.D. on 02/03/2021 at 11:14 Approved by: Esa Avila M.D. on 02/03/2021 at 11:14 Chest x-ray: Radiologist's Impression: [address] [id number] ReportSigned Patient: Mei Sen [facility]#: [id number]: [id number]:[id number]/Sex: 65 / FDate of Service: 02/03/21Loc: EDAccession Number: [id number] Procedure: XR chest 1V Ordering Provider: Marianna Gallardo D.O. PROCEDURE: XR CHEST 1V INDICATIONS: recurrent falls, hip, back pain, confused. TECHNIQUE: One view of the chest was acquired. COMPARISON: [facility], CHEST 2 VIEW, 02/25/2008, 16:30. FINDINGS: Surgical changes and devices: None. Lungs and pleura: Lungs are clear. No pleural effusions or pneumothorax. Mediastinum: Mediastinal contours appear normal. Heart size is normal. Bones and chest wall: No suspicious bony lesions. Overlying soft tissues appear unremarkable. IMPRESSION: Normal for age, source of current pain after trauma symptoms is not seen. Dictated by: Esa Avila M.D. on 02/03/2021 at 11:13 Approved by: Esa Avila M.D. on 02/03/2021 at 11:13 ECG Data Interpretation: Nonspecific T-wave changes, sinus rhythm, rate of 90, P are 168 QRS of 90 and QTC is 464. MDM Narrative Medical decision making narrative: This is a a 65-year-old female comes emergency department with multiple falls. Patient's roommate states that this began shortly after seeing her primary care physician and recently getting prescription for narcotics. On a dose of oral Cipro at that time. She does have a history of urine kidney infections. Patient here is mildly confused her mentation has been improved although not completely cleared. There does appear to be a psychiatric component along with probably polysubstance abuse. Patient also has a history of seizure disorder and was on Keppra and is likely not taking this anymore. She states that she does not wish to take it. She patient has not had any witnessed seizure activity by her roommate or here in the department so unclear if this could be a potential. Patient's symptoms are likely multifactorial. She does not currently meet criteria for inpatient admission she is able to ambulate safely here in the department, patient's hyperkalemia has improved and she does not have any clear current changes that would allow me to hospitalize her I did discuss with our hospitalist who defers. Patient was also seen by marriage and family social worker and myself both offered psychiatric treatment but patient defers this. At this time she does not seem to be a danger to herself or others and I do not feel that I can hold her involuntarily. Her roommate who is justifiable a concern about her was encouraged to call 911 or have her return if he has new or changing concerns. We also put in home health care referral and reached out to her primary care through our social work to try to facilitate treatment and care for the patient. Discharge Plan Departure Patient Disposition: Home Clinical Impression: Altered mental status, Recurrent falls, Hypokalemia Instructions: DI for Altered Mental Status Activity Restrictions/Additional Instructions: Follow up with your physician and home health care. A referral has been made and you should be contacted. Your imaging today does not show any new changes. A low potassium this is improved on recheck. Your renal function is elevated today but was also elevated several months ago. Your thyroid studies are pending, follow up with your physician regarding these. I do recommend you stop taking any narcotics or benzodiazepines. I do also recommend that you follow up with Psychiatry as well as your neurologist or a different neurologist. Please return for new or changing symptoms, recurrent episodes, new chest pain, shortness of breath, seizure activity, numbness, tingling or weakness, facial droop or difficulty with speech, black or bloody stools or other new or concerning symptoms. Prescriptions: No Action cholecalciferol (vitamin D3) 10,000 UNIT tablet 10,000 iu PO QDAY Qty: 0 RF: 0 cetirizine [Zyrtec] 10 mg tablet 10 mg PO DAILY Qty: 90 RF: 0 diphenhydramine HCl 25 mg capsule 50 mg PO TID PRN (Reason: w/narcotics for itching) Qty: 60 RF: 0 magnesium oxide 400 mg magnesium capsule 800 mg PO DAILY Qty: 90 RF: 0 quetiapine 25 mg tablet 25 mg PO BEDTIME Qty: 20 RF: 0 Premarin 1.25 mg tablet 1.25 mg PO DAILY Qty: 90 RF: 1 sumatriptan succinate 100 mg tablet 100 mg PO DAILY MDD 2 tabs daily PRN (Reason: Migraines) Qty: 60 RF: 0 zolpidem 10 mg tablet 10 mg PO BEDTIME PRN (Reason: insomnia) Qty: 90 RF: 1 triamcinolone acetonide 0.1 % ointment 1 applic TOP DAILY Qty: 15 RF: 1 simvastatin 40 mg tablet 40 mg PO BEDTIME Qty: 90 RF: 1 levothyroxine [Synthroid] 125 mcg tablet 125 mcg PO QDAY Qty: 90 RF: 1 furosemide 20 mg tablet 20 mg PO QDAY Qty: 90 RF: 1 fluticasone furoate 50 mcg/actuation blister with device 1 inh inhalation DAILY Qty: 30 RF: 5 esomeprazole magnesium [Nexium] 40 mg capsule,delayed release(DR/EC) 40 mg PO DAILY Qty: 90 RF: 0 baclofen 10 mg tablet 10 mg PO TID Qty: 270 RF: 0 albuterol sulfate [ProAir HFA] 90 mcg/actuation HFA aerosol inhaler 2 puff INHALATION Q4-6H PRN (Reason: wheezing) Qty: 6.7 RF: 3 spironolactone 25 mg tablet 25 mg PO DAILY Qty: 90 RF: 1 losartan 100 mg tablet 100 mg PO DAILY Qty: 90 RF: 1 fluticasone propionate 50 mcg/actuation spray,suspension 1 spray intranasal BID PRN (Reason: allergy symptoms) Qty: 15.8 RF: 3 oxycodone 10 mg tablet 10 mg PO TID PRN (Reason: pain) Qty: 90 RF: 0 levetiracetam 500 mg tablet 500 mg PO BID RF: 0 ciprofloxacin HCl 500 mg tablet 500 mg PO BID Qty: 14 RF: 0 fluconazole [Diflucan] 150 mg tablet 150 mg PO .COMPLEX Qty: 2 RF: 0 potassium chloride 10 mEq capsule, extended release 10 meq PO 3XW RF: 0 bisacodyl 5 mg tablet 15 mg PO BEDTIME RF: 0 aspirin 325 mg tablet 325 mg PO DAILY RF: 0 propranolol 10 mg tablet 10 mg PO BID Qty: 180 RF: 3 promethazine 25 mg tablet 25 mg PO QID Qty: 120 RF: 0 lorazepam 0.5 mg tablet 0.5 mg PO TID PRN (Reason: anxiety) Qty: 90 RF: 0 acetaminophen 500 mg Capsule 1,000 mg PO Q6H PRN (Reason: Pain) RF: 0 docusate sodium [DOK] 100 mg Capsule 100 mg PO BID PRN (Reason: constipation) Qty: 30 RF: 0 Referrals: Judah Tristan DO [Primary Care Provider] -
[2021-02-03] MEDS: SODIUM CHLORIDE 0.9% 1,000 ML 1000 ML IV (10:43)
--- NOTE | 2021-02-03 10:44 | DI.RAD.S_ITS ---
PROCEDURE: XR CHEST 1V INDICATIONS: recurrent falls, hip, back pain, confused. TECHNIQUE: One view of the chest was acquired. COMPARISON: [facility], , CHEST 2 VIEW, 02/25/2008, 16:30. FINDINGS: Surgical changes and devices: None. Lungs and pleura: Lungs are clear. No pleural effusions or pneumothorax. Mediastinum: Mediastinal contours appear normal. Heart size is normal. Bones and chest wall: No suspicious bony lesions. Overlying soft tissues appear unremarkable. IMPRESSION: Normal for age, source of current pain after trauma symptoms is not seen. Dictated by: Esa Avila M.D. on 02/03/2021 at 11:13 Approved by: Esa Avila M.D. on 02/03/2021 at 11:13
--- NOTE | 2021-02-03 10:44 | DI.CT.S_ITS ---
PROCEDURE: CT HEAD/BRAIN WO CON INDICATIONS: recurrent falls, hip, back pain, confused. TECHNIQUE: Noncontrast 4.5 mm thick angled axial sections acquired from the foramen magnum to the vertex, with coronal and sagittal reformats. For radiation dose reduction, the following was used: automated exposure control, adjustment of mA and/or kV according to patient size. COMPARISON: None. FINDINGS: Image quality: Excellent. CSF spaces: Basal cisterns are patent. No extra-axial fluid collections. Ventricles are normal in size and shape. Brain: No midline shift. No intracranial masses or hemorrhage. Simpson-white matter interface is normal. Skull and face: Calvarium and visualized facial bones are intact, without suspicious lesions. Sinuses: Visualized sinuses and mastoids are clear. IMPRESSION: No trauma found. Dictated by: Esa Avila M.D. on 02/03/2021 at 11:15 Approved by: Esa Avila M.D. on 02/03/2021 at 11:15
--- NOTE | 2021-02-03 10:44 | DI.RAD.S_ITS ---
PROCEDURE: XR HIP W PEL IF DONE LT 2V INDICATIONS: recurrent falls, hip, back pain, confused. TECHNIQUE: AP pelvis with lateral view(s) of the left hip(s). COMPARISON: None. FINDINGS: Bones: No fractures or dislocations. Pelvic ring appears intact. No suspicious bony lesions. Soft tissues: The visualized bowel gas pattern is normal. No suspicious soft tissue calcifications. IMPRESSION: No trauma found. Dictated by: Esa Avila M.D. on 02/03/2021 at 11:14 Approved by: Esa Avila M.D. on 02/03/2021 at 11:14
--- NOTE | 2021-02-03 10:44 | DI.RAD.S_ITS ---
PROCEDURE: XR LUMBAR SPINE 2-3V INDICATIONS: recurrent falls, hip, back pain, confused. TECHNIQUE: 3 views of the lumbar spine were acquired. [facility] 11[facility], [facility], L-SPINE MINIMUM 4 VIEWS, 03/29/2017, 10:43. FINDINGS: Bones: 5 iby-txl-okzmvvo vertebrae are present. There is normal bony alignment. No vertebral body compression fractures. No suspicious bony lesions. Soft tissues: Overlying bowel gas pattern is normal. No suspicious soft tissue calcifications. IMPRESSION: Prior spine fusion surgery, previously documented, no trauma found. Dictated by: Esa Avila M.D. on 02/03/2021 at 11:14 Approved by: Esa Avila M.D. on 02/03/2021 at 11:15
[2021-02-03 11:05] LABS: Ammonia (NH3) < 9 umol/L (9-30)
[2021-02-03 11:16] LABS: Add Manual Diff / Slide Review NO; Basophils Absolute Auto 0 /uL (0-100); Basophils Percent Auto 0.7 % (0-2); Eosinophils Absolute Auto 100 /uL (0-450); Hematocrit 29.1 % (36-46); Hemoglobin 9.5 g/dL (12.0-16.0); Lymphocytes Absolute Auto 1800 /uL (1100-4500); Lymphocytes Percent Auto 26.1 % (25-40); Mean Corpuscular HGB Conc 32.6 % (30-36); Mean Corpuscular Hemoglobin 29.5 PG (26-34); Mean Corpuscular Volume 90.3 fL (80-100); Monocytes Absolute Auto 600 /uL (0-900); Monocytes Percent Auto 9.1 % (3-14); Neutrophils Absolute Auto 4400 /uL (1500-7000); Neutrophils Percent Auto 63.1 % (50-75); Platelet Count 390 X10^3/uL (150-400); Red Blood Cell Count 3.23 X10^6/uL (4.0-5.2); Red Cell Distribution Width 15.1 % (11.6-14.8)
[2021-02-03 12:31] LABS: Acetaminophen < 10 ug/mL (10-30); Alanine Aminotransferase 41 IU/L (<35); Albumin 3.9 g/dL (3.5-5.0); Albumin Globulin Ratio 1.1 (1.0-2.8); Alkaline Phosphatase 55 U/L (38-126); Aspartate Aminotransferase 98 IU/L (14-36); BUN Creatinine Ratio 20.1 (6-22); Bilirubin Total 0.3 mg/dL (0.2-1.3); Blood Urea Nitrogen 30 mg/dL (7-17); Calcium 9.8 mg/dL (8.4-10.2); Carbon Dioxide 24 mmol/L (22-32); Chloride 104 mmol/L (98-107); Creatine Kinase 707 U/L (30-135); Estimated Glomerular Filt Rate 35.1 mL/min (>60); Ethanol (ETOH) < 10 mg/dL; Globulin 3.4 g/dL (1.7-4.1); Glucose 81 mg/dL (80-110); HEMOLYSIS 22 (0-50); Lipase 45 U/L (23-300); Potassium 2.9 mmol/L (3.4-5.1); Salicylate 4.6 mg/dL (<20); Sodium 138 mmol/L (137-145); Total Protein 7.3 g/dL (6.3-8.2)
[2021-02-03 12:46] LABS: CKMB % Relative Index 1.2 % (1.5-5.0); Creatine Kinase MB 8.36 ng/mL (<2.37); Lactate (Lactic Acid) 0.5 mmol/L (0.7-2.1)
[2021-02-03 12:47] LABS: Prolactin 38.6 ng/mL (3.0-18.6)
[2021-02-03 13:07] LABS: Thyroid Stimulating Hormone < 0.015 uIU/mL (0.47-4.68)
[2021-02-03] MEDS: POTASSIUM CHLORIDE 20 MEQ/15 ML UDC 40 MEQ PO (13:09)
[2021-02-03 13:11] LABS: COVID19 - ADMIT (NP swab/PCR) Negative (Negative)
[2021-02-03] MEDS: LORazepam 2 MG/ML INJ 1 MG IV (13:42)
[2021-02-03 13:58] LABS: Appearance Urine UA SL CLOUDY; Bilirubin Urine UA NEGATIVE (NEGATIVE); Color Urine UA YELLOW; Glucose Urine UA NEGATIVE (Negative); Ketones Urine UA 1+ (NEGATIVE); Leukocyte Esterase Urine UA NEGATIVE (NEGATIVE); Nitrite Urine UA NEGATIVE (Negative); Occult Blood Urine UA 3+ (Negative); Protein Urine UA TRACE (Negative); Specific Gravity Urine UA 1.015 (1.000-1.035); Urobilinogen Urine UA 0.2 E.U./dL (0.2)
[2021-02-03 14:12] LABS: UR Morphine/Opiate cutoff 300 Negative (Negative); Ur Creatinine Normal (Normal); Ur Specific Gravity Normal (Normal); Urine Amphetamines Negative (Negative); Urine Barbiturates Negative (Negative); Urine Cocaine Negative (Negative); Urine MDMA Negative (Negative); Urine Methamphetamines Negative (Negative); Urine Phencyclidine Negative (Negative); Urine Tetrahydrocannabinol Positive (Negative); Urine pH Normal (Normal)
[2021-02-03 14:13] LABS: Urine Benzodiazepines Positive (Negative); Urine Methadone Negative (Negative); Urine Oxycodone Positive (Negative); Urine Tricyclic Antidepressant Negative (Negative)
[2021-02-03 14:18] LABS: Bacteria Urine Moderate (10-30); Culture Indicated Urine Cult Not Indicated; RBC Urine 5-10/HPF (0-5/HPF); Squamous Epithelial Cell Urine 5-10 /HPF (0-5/HPF); WBC Urine 5-10/HPF (0-5/HPF); pH Urine UA 5.5 (4.5-8.0)
[2021-02-03 15:23] LABS: HEMOLYSIS < 15 (0-50); Potassium 3.6 mmol/L (3.4-5.1)
--- NOTE | 2021-02-03 16:38 | CM.SWNOTE ---
STOCK ORDER LISTER Assessment STOCK ORDER LISTER - Station Mechanic Helper Assessment STOCK ORDER LISTER/Station Mechanic Helper Assessment Time Spent with Patient Start date 02/03/21 Visit Start Time 15:10 End date 02/03/21 Visit End Time 15:45 Total time Care Management spent on 45 patient visit-in minutes Mental Health Screening Include Onset, Duration, Intensity Presenting Problem Patient presents to this ED after recurring GLFs and altered mental state Precipitating Event(s) Patient was prescribed oxycodone last week by PCP Dr. Tristan Patient Strengths Patient is advocate for self Current Behavioral Health Provider(s) No current MH providers, Include Facility, Provider, Ph. # patient denies seeking MH provider or pscy and denies support seeking such. Psych. Hx Mental Health and Chemical Dx of ADHD, Anxiety, Dependency Depression, and Bipolar 1 disorder with histrionic features Patient denies substance use and ETOH use. Patient was positive for THC. Family Hx of Behavioral Abuse Patient reports her daugther is a Meth user and she does not let her in the house, daughter currently resides out of state. Psychiatric Hospitalizations (date(s)/ None reported location) Psychosocial information & Support Patient is 65 y/o female who Systems resides with friend in [place], friend is ongoing emotional support and has been residing with patient for over a year. School/Work Patient is disabled Legal Concerns Legal Matters - Outstanding Issues None reported Mental Status Orientation (Person/Place/Time) A/Ox3 Stated Mood my kidneys really hurt Affect (Congruent with Mood?) euphoric, full range, labile, congruent with mood. Thought Content - Specify/Describe STOCK ORDER LISTER did not ask thought Obsessions, Delusions, Hallucinations content questions. Patient presents as anxious regarding medical environment, dx and practices Thought Processes (Rlejzjw-Nsmuqiml-Ceaz Tangential Gbxotjyx-Hrgibsyd-Cjnrquqggh- Ticcrikcvjjqan-Vaorlkn-Bqcnnlexlzcu- Thought Blocking) Speech (Ycmanc-Brii-Qvqhpvt-Rapid-Soft- slurred and rapid Loud-Pressured) Motor (Jxpwbb-Yjyxdlsfx-Rljz-Other) excessive, patient shaking body and scratching leg Insight (Vjcg-Vclm-Rgqx/Limited) fair/limited Judgement (Biud-Cmlm-Oxoj/Limited) poor/limited Impulse Control (Adequate-Impaired) Impaired Memory (Vtvkqfawp-Zvvfwl-Irodkj, somewhat intact, not formally Impaired-Intact) assessed Concentration (Intact-Impaired) Impaired Attention (Intact-Impaired) impaired Behavior (Appropriate-Inappropriate) fairly appropriate Additional Comment Patient presents as confused and not coherent. Intervention Intervention STOCK ORDER LISTER enters room and meets with patient and patient's roommate with patient's consent. Roommate reports that patient became lethargic since rx of Oxycodone last week from PCP, it is unknown how much rx patient took. Patient reports she took medication as prescribed. Roommate reports he found patient on the floor this morning and it is unknown how long she has been there. Patient presents with bruises all over her body. Patient continues to endorse concern for her kidneys and that she has PKD - Polycystic kidney disease and that inhibits her ability to do daily functioning. Patient endorses several allergies and prescriptions. Roommate states that patient prefers to be independent and he does not provide medication management support. Patient endorses that she does have issues taking all of her medications because she is sleepy. Roommate shows STOCK ORDER LISTER picture of her 12 + bottles of medication. STOCK ORDER LISTER discusses [facility] Medicaid caregiver referral, HH with RN , Home health aide, PT and STOCK ORDER LISTER as well as coordinating care with Dr. Tristan. Both patient and roommate indicate agreement and understanding upon patient's d/c when medically clear. STOCK ORDER LISTER provides HH options and patient states [facility] and prefers [facility] as the provider. It is the opinion of this STOCK ORDER LISTER that patient is safe to d/c to home when she is medically clear. STOCK ORDER LISTER reviews the above with ED provider Dr. Gallardo and she indicates agreement and understanding. Plan RA Plan Patient to d/c home when medically clear with HH for RN , PT, home health aide, and STOCK ORDER LISTER and with referral for [facility] related caregiving services MELANIE Russell
--- NOTE | 2021-02-03 16:39 | CM.SWNOTE ---
TENDER LABOR Note TENDER LABOR calls Dr. Tristan and reports patient's encounter to this ED and informs PCP of HH referral and [facility] referral. PCP indicates agreement and understanding. PCP reports concern for recent rx of Oxycodone and indicates he will see patient next week for f/u and has ongoing biweekly f/u appts. TENDER LABOR calls Rajwinder with [facility] for medicaid and caregiver referral, TENDER LABOR leaves with patient referral information requesting return call. TENDER LABOR calls Michaela with [facility] and submits referral for RN, TENDER LABOR, PT and home health aide. Michaela reports that patient was a client in 2020 and she is in their system. TENDER LABOR faxes referral and clinicals to [facility] . Plan: Patient to d/c home when medically clear with [facility] services, [facility] referral and ongoing f/u with PCP Dr. Tristan. MELANIE Russell
[2021-02-03 17:09] LABS: T4 Total Thyroxine 9.88 ug/dL (5.5-11.0)
== END 2021-02-03 17:15 | disposition home or self-care (01) ==
PROVIDERS: Emergency Provider Emergency Medicine; Family Provider Family Medicine; PCP Family Medicine
DX: R41.82 Altered mental status, unspecified (principal); E87.6 Hypokalemia; M54.5 Low back pain; M25.552 Pain in left hip; R29.6 Repeated falls; Z20.822 Contact with and (suspected) exposure to COVID-19
CPT/HCPCS: 36415; 70450; 71045; 72100; 73502; 80053; 80305; 80320; 80329; 81001; 81003; 82140; 82550; 82553; 82962; 83605; 83690; 84132; 84146; 84436; 84443; 84481; 84484; 85025; 87040; 87635; 93005; 96361; 96374; 99285; C9803; G0480; J2060

== ENCOUNTER → 2021-02-08 19:14 | Outpatient (ROUT) | payer MEDICARE, SELFPAY ==
[2020-07-15 12:58] VITALS: BMI 23.8
[2021-02-08 19:15] LABS: Bacteria Urine None Seen
[2021-02-08 19:57] LABS: Culture Indicated Urine Cult Not Indicated; RBC Urine 0-1/HPF (0-5/HPF); WBC Urine 0-1/HPF (0-5/HPF)
== END ==
PROVIDERS: Family Provider Family Medicine; PCP Family Medicine; Visit Provider Family Medicine
DX: N39.0 Urinary tract infection, site not specified (principal); R31.9 Hematuria, unspecified
CPT/HCPCS: 81015; 87086

== ENCOUNTER → 2021-04-14 10:09 | Outpatient (CLI) | payer MEDICARE, SELFPAY ==
[2020-07-15 12:58] VITALS: BMI 23.8
[2021-04-14 12:15] LABS: Add Manual Diff / Slide Review NO; Basophils Absolute Auto 100 /uL (0-100); Basophils Percent Auto 0.8 % (0-2); Eosinophils Absolute Auto 200 /uL (0-450); Eosinophils Percent Auto 2.6 % (2-4); Hematocrit 27.7 % (36-46); Hemoglobin 9.2 g/dL (12.0-16.0); Lymphocytes Absolute Auto 1900 /uL (1100-4500); Lymphocytes Percent Auto 28.9 % (25-40); Mean Corpuscular HGB Conc 33.4 % (30-36); Mean Corpuscular Hemoglobin 29.9 PG (26-34); Mean Corpuscular Volume 89.7 fL (80-100); Monocytes Absolute Auto 600 /uL (0-900); Monocytes Percent Auto 8.8 % (3-14); Neutrophils Absolute Auto 3800 /uL (1500-7000); Neutrophils Percent Auto 58.9 % (50-75); Platelet Count 425 X10^3/uL (150-400); Red Blood Cell Count 3.08 X10^6/uL (4.0-5.2); Red Cell Distribution Width 14.1 % (11.6-14.8); White Blood Cell Count 6.5 X10^3/uL (4.5-11.0)
[2021-04-14 12:17] LABS: Alanine Aminotransferase 25 IU/L (<35); Albumin Globulin Ratio 1.2 (1.0-2.8); Alkaline Phosphatase 73 U/L (38-126); Aspartate Aminotransferase 36 IU/L (14-36); BUN Creatinine Ratio 22.1 (6-22); Bilirubin Total 0.2 mg/dL (0.2-1.3); Blood Urea Nitrogen 27 mg/dL (7-17); Calcium 9.3 mg/dL (8.4-10.2); Carbon Dioxide 28 mmol/L (22-32); Chloride 94 mmol/L (98-107); Estimated Glomerular Filt Rate 44.2 mL/min (>60); Globulin 3.4 g/dL (1.7-4.1); Glucose 88 mg/dL (80-110); HEMOLYSIS < 15 (0-50); Potassium 3.5 mmol/L (3.4-5.1); Sodium 133 mmol/L (137-145); Total Protein 7.4 g/dL (6.3-8.2)
[2021-04-14 13:35] LABS: Free T3, Triiodothyronine Free 3.79 pg/mL (2.77-5.27); Free T4, Direct Thyroxine 3.38 ng/dL (0.78-2.19)
[2021-04-14 13:53] LABS: Thyroid Stimulating Hormone < 0.015 uIU/mL (0.47-4.68)
== END ==
PROVIDERS: Family Provider Family Medicine; PCP Family Medicine; Referring Provider Family Medicine; Visit Provider Family Medicine
DX: R79.89 Other specified abnormal findings of blood chemistry (principal); E03.9 Hypothyroidism, unspecified; E87.1 Hypo-osmolality and hyponatremia; I10 Essential (primary) hypertension
CPT/HCPCS: 36415; 80053; 84439; 84443; 84481; 85025

== ENCOUNTER → 2021-04-20 14:42 | Outpatient (CLI) | payer MEDICARE, MEDICAID, SELFPAY ==
[2020-07-15 12:58] VITALS: BMI 23.8
--- NOTE | 2021-04-20 14:43 | DI.RAD.S_ITS ---
PROCEDURE: XR HAND LT 2V INDICATIONS: hand pain TECHNIQUE: 2 views of the hand(s) acquired. COMPARISON: None. FINDINGS: Bones: No fractures or dislocations. Carpal bones are normally aligned. No suspicious bony lesions. Soft tissues: No suspicious soft tissue calcifications. IMPRESSION: No acute fracture. No osseous lesion. If symptoms and/or clinical suspicion for pathology persist, further assessment with repeat, or advanced imaging (e.g., CT, MRI, or bone scan) may be helpful for further assessment. Dictated by: Darryl Sheth M.D. on 04/20/2021 at 16:04 Approved by: Darryl Sheth M.D. on 04/20/2021 at 16:50
== END ==
PROVIDERS: Family Provider Family Medicine; PCP Family Medicine; Referring Provider Family Medicine; Visit Provider Family Medicine
DX: M79.642 Pain in left hand (principal)
CPT/HCPCS: 73120

== ENCOUNTER 2021-09-30 18:38 | Observation (INO) | payer MEDICARE, MEDICAID, SELFPAY ==
[2020-07-15 12:58] VITALS: BMI 23.8
[2021-09-30] VITALS (12 sets, daily range): BP systolic 120–159; BP diastolic 60–87; PULSE 75–86; RESP 16–30; TEMP 36.4–37.1; O2SAT 95–99
[2021-09-30 19:11] LABS: Add Manual Diff / Slide Review NO; Basophils Absolute Auto 0 /uL (0-100); Basophils Percent Auto 0.5 % (0-2); Eosinophils Absolute Auto 300 /uL (0-450); Eosinophils Percent Auto 3.9 % (2-4); Hematocrit 27.9 % (36-46); Hemoglobin 9.1 g/dL (12.0-16.0); Lymphocytes Absolute Auto 1900 /uL (1100-4500); Lymphocytes Percent Auto 26.9 % (25-40); Mean Corpuscular HGB Conc 32.4 % (30-36); Mean Corpuscular Hemoglobin 29.2 PG (26-34); Monocytes Absolute Auto 600 /uL (0-900); Monocytes Percent Auto 8.8 % (3-14); Neutrophils Absolute Auto 4200 /uL (1500-7000); Neutrophils Percent Auto 59.9 % (50-75); Platelet Count 324 X10^3/uL (150-400)
--- NOTE | 2021-09-30 19:30 | PC.NURSE ---
Patient with [facility] emergency department on 09/22 with c/o rib pain, denied fall and according to patient was found to have rib fractures and low sodium. Was admitted there but left AMA on 09/25. Patient reports that her PCM Dr Tristan told her to come to ED for evaluation. Patient c/o nausea with abdominal bloating.
[2021-09-30 19:35] LABS: Ammonia (NH3) < 9 umol/L (9-30); Lactate (Lactic Acid) 0.7 mmol/L (0.7-2.1)
[2021-09-30 19:37] LABS: Acetaminophen < 10 ug/mL (10-30); Alanine Aminotransferase 19 IU/L (<35); Albumin 3.6 g/dL (3.5-5.0); Albumin Globulin Ratio 1.1 (1.0-2.8); Alkaline Phosphatase 67 U/L (38-126); Aspartate Aminotransferase 27 IU/L (14-36); BUN Creatinine Ratio 15.9 (6-22); Bilirubin Total 0.2 mg/dL (0.2-1.3); Blood Urea Nitrogen 10 mg/dL (7-17); Calcium 8.5 mg/dL (8.4-10.2); Carbon Dioxide 35 mmol/L (22-32); Chloride 98 mmol/L (98-107); Estimated Glomerular Filt Rate > 60.0 mL/min (>60); Ethanol (ETOH) < 10 mg/dL; Globulin 3.3 g/dL (1.7-4.1); Glucose 89 mg/dL (80-110); HEMOLYSIS < 15 (0-50); Potassium 3.5 mmol/L (3.4-5.1); Salicylate < 1.0 mg/dL (<20); Sodium 134 mmol/L (137-145); Total Protein 6.9 g/dL (6.3-8.2)
[2021-09-30] MEDS: SODIUM CHLORIDE 0.9% 1,000 ML 150 ML IV (19:41)
--- NOTE | 2021-09-30 19:44 | ED_ITS ---
HPI - Altered Mental Status General Chief Complaint: Altered Mental Status Stated Complaint: Deja from [facility], not doing well Time Seen by Provider: 09/30/21 18:55 History of Present Illness HPI narrative: 65-year-old female smoker with history of polycystic kidney disease, hypothyroidism, hypertension, hyperlipidemia, GERD, intractable migraines, bipolar disorder and fibromyalgia presents for evaluation and treatment. She has a very poor historian but reports suggest that she had left [facility] or recently after a MA. She had been and admitted for multiple falls and altered mental status and was thought to be secondary to polypharmacy. Related Data Home Medications Medication Instructions Recorded Confirmed cholecalciferol (vitamin D3) 250 5,000 iu PO QDAY #0 03/28/17 10/01/21 mcg (10,000 unit) tablet potassium chloride 10 mEq 10 meq PO 3XW 04/08/19 09/20/21 capsule,extended release acetaminophen 500 mg capsule 1,000 mg PO Q6H PRN 02/24/20 10/01/21 atomoxetine 40 mg capsule 40 mg PO DAILY 10/01/21 10/01/21 baclofen 10 mg tablet 10 mg PO TID 10/01/21 10/01/21 diphenhydramine HCl 25 mg capsule 50 mg PO QPM 10/01/21 10/01/21 furosemide 20 mg tablet 20 mg PO DAILY 10/01/21 10/01/21 Previous Rx's Medication Instructions Recorded cetirizine 10 mg tablet (Zyrtec) 10 mg PO DAILY #90 tab 03/30/20 magnesium oxide 800 mg PO DAILY #90 cap 03/30/20 simvastatin 40 mg tablet 40 mg PO BEDTIME #90 tab 12/08/20 losartan 100 mg tablet 100 mg PO DAILY #90 tab 12/09/20 conjugated estrogens 1.25 mg 1.25 mg PO DAILY #90 tab 03/23/21 tablet (Premarin) spironolactone 25 mg tablet 25 mg PO DAILY #90 tab 03/23/21 sumatriptan succinate 100 mg tablet 100 mg PO DAILY PRN #36 tab MDD 2 03/31/21 tabs daily triamcinolone acetonide 0.1 % 1 applic TOP DAILY #80 g 03/31/21 topical ointment fluticasone propionate 50 1 spray INTRANASAL BID PRN #15.8 ml 05/20/21 mcg/actuation nasal spray,suspension levothyroxine 125 mcg tablet 125 mcg PO QDAY #90 tab 05/20/21 (Synthroid) albuterol sulfate 90 mcg/actuation 2 puff INHALATION Q4-6H PRN #6.7 08/08/21 aerosol inhaler (ProAir HFA) gram promethazine 25 mg tablet See Rx Instructions .ROUTE 08/19/21 .COMPLEX #90 tab Handicap Parking Permit #1 ea 09/08/21 fluticasone furoate 50 1 inh INHALATION DAILY #30 ea 09/08/21 mcg/actuation blister powder for inhalation linaclotide 145 mcg capsule 145 mcg PO DAILY #90 cap 09/08/21 (Linzess) pantoprazole 40 mg tablet,delayed 40 mg PO DAILY #90 tab 09/08/21 release lorazepam 0.5 mg tablet See Rx Instructions .ROUTE 09/15/21 .COMPLEX #90 tab oxycodone 5 mg tablet 5 mg PO TID PRN #90 tab 09/20/21 Allergies Allergy/AdvReac Type Severity Reaction Status Date / Time adhesive [ADHESIVE] Allergy Severe RASH Verified 09/20/21 11:33 doxycycline [DOXYCYCLINE] Allergy Severe Rash Verified 09/20/21 11:33 ketorolac [KETOROLAC] Allergy Severe HIVES, Verified 09/20/21 11:33 Renal insufficiency lithium [LITHIUM] Allergy Severe RASH, Verified 09/20/21 11:33 ERYTHEMA morphine [MORPHINE] Allergy Severe ITCHING, Verified 09/20/21 11:33 Nausea onabotulinumtoxinA Allergy Severe RASH, Verified 09/20/21 11:33 FACIAL SWELLING Penicillins [PENICILLINS] Allergy Severe ANAPHYLAXIS Verified 09/20/21 11:33 risperidone [RISPERIDONE] Allergy Severe RASH Verified 09/20/21 11:33 tramadol [TRAMADOL] Allergy Severe Instant Verified 09/20/21 11:33 Hives, welts hydroxyzine [HYDROXYZINE] Allergy Intermediate rash Verified 09/20/21 11:33 lisinopril [LISINOPRIL] Allergy Intermediate Rash, COUGH Verified 09/20/21 11:33 erythromycin base Allergy Mild Anaphylaxis Verified 09/20/21 11:33 [ERYTHROMYCIN BASE] nortriptyline [NORTRIPTYLINE] Allergy Mild RASH, Verified 09/20/21 11:33 Depression bromide salts [BROMIDE SALTS] Allergy Unknown Pt unsure Verified 09/20/21 11:33 of reaction estradiol [ESTRADIOL] Allergy Unknown Pt unsure Verified 09/20/21 11:33 of reaction etodolac [ETODOLAC] Allergy Unknown Hives, Verified 09/20/21 11:33 Renal insufficiency nickel [NICKEL] Allergy Unknown Rash, skin Verified 09/20/21 11:33 bleeds nitrofurantoin Allergy Unknown PT UNSURE Verified 09/20/21 11:33 [NITROFURANTOIN] OF REACTION NSAIDS (Non-Steroidal Allergy Unknown Hives, Verified 09/20/21 11:33 Anti-Inflamma Renal [NSAIDS (NON-STEROIDAL insufficiency ANTI-INFLAMMA] tiotropium [TIOTROPIUM] Allergy Unknown REACTION Verified 09/20/21 11:33 NOT LISTED tromethamine [TROMETHAMINE] Allergy Unknown Hives, PKD Verified 09/20/21 11:33 verapamil [VERAPAMIL] Allergy Unknown Pt unsure Verified 09/20/21 11:33 of reaction zonisamide [ZONISAMIDE] Allergy Unknown Pt unsure Verified 09/20/21 11:33 of reaction Iodinated Contrast Media Allergy IT WAS Verified 09/20/21 11:33 VERY BAD sulfasalazine Allergy Hives, Verified 09/20/21 11:33 vomiting codeine [CODEINE] AdvReac Severe Vomiting Verified 09/20/21 11:33 duloxetine [From CYMBALTA] AdvReac Severe MOUTH Verified 09/20/21 11:33 SORES hydrocodone [From VICODIN] AdvReac Severe VOMITING Verified 09/20/21 11:33 methocarbamol [METHOCARBAMOL] AdvReac Severe VOMITING Verified 09/20/21 11:33 azithromycin [AZITHROMYCIN] AdvReac Intermediate NAUSEA, Verified 09/20/21 11:33 VOMITING carbamazepine [CARBAMAZEPINE] AdvReac Intermediate VOMITING Verified 09/20/21 11:33 amitriptyline [AMITRIPTYLINE] AdvReac Mild MORE Verified 09/20/21 11:33 DEPRESSED, Itching cyclobenzaprine AdvReac Mild VOMIT Verified 09/20/21 11:33 [CYCLOBENZAPRINE] desvenlafaxine AdvReac Mild VOMIT Verified 09/20/21 11:33 [DESVENLAFAXINE] gabapentin AdvReac Mild MORE Verified 09/20/21 11:33 DEPRESSED divalproex sodium AdvReac Unknown Nausea, Verified 09/20/21 11:33 [DIVALPROEX SODIUM] shortness of breath sertraline [SERTRALINE] AdvReac Unknown Makes me Verified 09/20/21 11:33 feel more depressed Sulfa (Sulfonamide AdvReac Unknown VOMITING Verified 09/20/21 11:33 Antibiotics) *ABLE TO [SULFA (SULFONAMIDE TAKE ANTIBIOTICS)] LEVAQUIN ABX ONLY* Review of Systems Review of Systems Narrative: GENERAL: Denies chills, fatigue, malaise, fever, sweats. HEENT: Denies sinus pain, ear pain, sore throat, difficulty swallowing, dizziness. RESPIRATORY: Denies dyspnea, cough, wheezing, hemoptysis, sputum. CARDIOVASCULAR: Denies chest pain, palpitations, orthopnea, edema, GASTROINTESTINAL: See HPI : Denies dysuria, frequency, incontinence, hematuria, urinary retention. MUSCULOSKELETAL: denies weakness, joint pain, or bony pain SKIN: Denies rash, skin lesions, or other NEUROLOGIC: Denies weakness, headache, numbness, change in speech, confusion, seizures, incoordination. PSYCHIATRIC: No concerning psychosocial issues. 12 point review of systems is negative except for those stated above Patient History Medical History Acute neck pain ADHD Allergies Anemia Ankle pain Anxiety Anxiety about health Anxiety and depression Benign familial tremor Bipolar 1 disorder Cervical somatic dysfunction Cervical spine disease (~2014) Cheilitis Chicken pox Chronic lumbar pain Chronic nausea Chronic neck pain Chronic right-sided low back pain without sciatica Cranial somatic dysfunction Depression Diverticular disease Dry skin Dysuria Ecchymoses, spontaneous Fibromyalgia Glaucoma Headache History of falling History of non anemic vitamin B12 deficiency Hyperlipidemia Hypertension Hyponatremia with decreased serum osmolality Iliotibial band syndrome, left leg Insomnia disorder, with non-sleep disorder mental comorbidity, episodic Insomnia secondary to depression with anxiety Irritable bowel syndrome Kidney disease Measles Migraine headache Orthostatic hypotension Osteoarthritis Pelvic somatic dysfunction Postnasal drip Recurrent sinusitis Recurrent sinusitis Requires assistance with activities of daily living (ADL) Resting tremor Rheumatoid arthritis Segmental and somatic dysfunction of abdomen and other regions Segmental and somatic dysfunction of lumbar region Segmental and somatic dysfunction of sacral region Segmental and somatic dysfunction of thoracic region Segmental dysfunction of rib cage Sinusitis, acute maxillary Somatic dysfunction of lower extremity Swallowing difficulty Urinary tract infection Vertigo Vision changes Vision disorder Surgical History Anesthesia H/O ventral hernia repair History of appendectomy History of arthroplasty of right knee (01/2019) History of bilateral salpingo-oophorectomy History of section History of cholecystectomy History of colonoscopy History of reduction mammoplasty History of spinal surgery (~2016) History of tonsillectomy History of total abdominal hysterectomy Family History Father History of heart disease Hypertension Hyperlipidemia Mother Diabetes mellitus History of heart disease Hyperlipidemia Hypertension Mental health problem Brother No problems noted. Brother Leukemia History of heart disease Diabetes mellitus Sister Kidney disease Alcoholic Mental health problem Grandfather History of heart disease Hypertension Grandmother Cancer Grandfather Hypertension History of heart disease Grandmother Low blood pressure Family/Other Mental health problem Social History household members: significant other Smoking Status: Current some day smoker alcohol intake: former Smoking Status: Former smoker alcohol intake frequency: other Substance Use Type: former substance user, marijuana, painkillers and prescription drug Exam Narrative Exam Narrative: GENERAL: [65 year old patient appears stated age. Well-developed patient, in mild distress. GCS 14 (mild confusion) HEAD: Atraumatic. Normocephalic. EYES: Pupils equal round and reactive. Extraocular motions intact. No scleral icterus. No injection or drainage. ENT: Nose without bleeding, purulent drainage. Throat without erythema, tonsillar hypertrophy or exudate. Airway patent. NECK: Trachea midline. Non tender CARDIOVASCULAR: Regular rate and rhythm without murmurs, gallops, or rubs. RESPIRATORY: Clear to auscultation. Breath sounds equal bilaterally. No wheezes, rales, or rhonchi. GASTROINTESTINAL: Abdomen soft, tender to palpation of the right upper quadrant nondistended. EXTREMITIES: No edema or joint tenderness. BACK: Nontender without deformity or crepitance. No flank tenderness. NEURO: AOx3. SKIN: No rash or erythema of visible areas Initial Vital Signs Initial Vital Signs: Vital Signs Pulse Rate 86 09/30/21 18:49 Pulse Oximetry 97 09/30/21 18:49 Course Course Course Narrative: Pad extensive discussion with the patient. She reiterates over and over that she does not have an allergy to IV contrast, however given her chronic kidney disease she has been told to avoid contrast if possible. We discussed the risks and benefits and sure the opinion that given the severe pain and recurrent fa lls that advanced imaging is indicated Orders Ordered: ED Orders 09/30/21 18:55 EKG-12 Lead Stat 09/30/21 18:59 Acetaminophen Stat Ammonia (NH3) Stat Complete Blood Count AUTO DIFF Stat Comprehensive Metabolic Panel Stat Ethanol (ETOH) Stat Lactate (Lactic Acid) Stat Prolactin Stat Salicylate Stat Thyroid Stimulating Hormone Stat 09/30/21 19:46 Blood Culture Stat 09/30/21 19:48 CT chest abd pel w con Stat CT head/brain wo con Stat 09/30/21 21:12 Urinalysis and Microscopic Stat 09/30/21 21:13 Urine Drug Screen, Rapid Stat 09/30/21 22:00 COVID19 -Nasal swab/Pre-Proc Stat Hydrocodone Bitart/Acetaminophen (Hydrocodone/Acet 5/325 Tablet) 1 tab PO Q4HR PRN PRN Reason: Pain, Moderate (4-6) Hydrocodone Bitart/Acetaminophen (Hydrocodone/Acet 5/325 Tablet) 2 tab PO Q4HR PRN PRN Reason: Pain, Severe (7-10) Hydromorphone HCl (Hydromorphone 1 Mg Inj) 1 mg IV Q2H PRN PRN Reason: Pain, Moderate (4-6) Last Admin: 10/01/21 00:18 Dose: 1 mg Documented by: NANDO Sodium Chloride (Normal Saline 0.9%) 1,000 mls @ 150 mls/hr IV CONT PAYTON Last Infusion: 09/30/21 23:31 Dose: 0 mls/hr Documented by: Infusion: 09/30/21 23:30 Dose: 0 mls/hr Documented by: Admin: 09/30/21 19:41 Dose: 150 mls/hr Documented by: BARBARA Lorazepam (Lorazepam 0.5 Mg Tablet) 0.5 mg PO Q6HR PRN PRN Reason: Anxiety Last Admin: 10/01/21 01:33 Dose: 0.5 mg Documented by: NANDO Ondansetron HCl (Ondansetron 4 Mg/2 Ml Inj) 4 mg IV Q6HR PRN PRN Reason: Nausea And Vomiting Last Admin: 10/01/21 01:33 Dose: 4 mg Documented by: NANDO Discontinued Medications Hydromorphone HCl (Hydromorphone 1 Mg Inj) 1 mg IV NOW ONE Stop: 09/30/21 21:17 Last Admin: 09/30/21 21:35 Dose: 1 mg Documented by: KARINA Ondansetron HCl (Ondansetron 4 Mg/2 Ml Inj) 4 mg IV NOW ONE Stop: 09/30/21 21:17 Last Admin: 09/30/21 21:35 Dose: 4 mg Documented by: KARINA Reevaluation(s) Reevaluation #1: patient requires ongoing pain control for her pain Vital Signs Vital signs: Vital Signs - 8 hr 09/30/21 18:49 09/30/21 18:50 09/30/21 18:55 Temperature 98.7 F Pulse Rate 86 84 79 Respiratory Rate 16 Blood Pressure 159/80 H 159/80 H Pulse Oximetry 97 98 99 09/30/21 19:00 09/30/21 19:30 09/30/21 20:00 Temperature Pulse Rate 77 78 75 Respiratory Rate 21 18 19 Blood Pressure 139/74 142/87 H 120/80 Pulse Oximetry 99 99 98 09/30/21 20:30 09/30/21 21:00 09/30/21 21:30 Temperature Pulse Rate 84 83 79 Respiratory Rate 30 H 24 Blood Pressure 130/76 154/72 H Pulse Oximetry 98 97 98 09/30/21 22:00 09/30/21 22:01 Temperature Pulse Rate 79 82 Respiratory Rate 26 H 29 H Blood Pressure 125/60 Pulse Oximetry 95 96 MDM - Altered Mental Status Lab Data Result diagrams: 09/30/21 18:59 09/30/21 18:59 Labs: Lab Results 09/30/21 09/30/21 09/30/21 Range/Units 18:59 18:59 18:59 WBC 7.0 (4.5-11.0) X10^3/uL RBC 3.10 L (4.0-5.2) X10^6/uL Hgb 9.1 L (12.0-16.0) g/dL Hct 27.9 L (36-46) % MCV 90.0 (80-100) fL MCH 29.2 (26-34) PG MCHC 32.4 (30-36) % RDW 15.0 H (11.6-14.8) % Plt Count 324 (150-400) X10^3/uL Neut % (Auto) 59.9 (50-75) % Lymph % (Auto) 26.9 (25-40) % Grady % (Auto) 8.8 (3-14) % Eos % (Auto) 3.9 (2-4) % Baso % (Auto) 0.5 (0-2) % Neut # (Auto) 4200 (7594-7670) /uL Lymph # (Auto) 1900 (9748-0415) /uL Grady # (Auto) 600 (0-900) /uL Eos # (Auto) 300 (0-450) /uL Baso # (Auto) 0 (0-100) /uL Sodium 134 L (137-145) mmol/L Potassium 3.5 (3.4-5.1) mmol/L Chloride 98 (98-107) mmol/L Carbon Dioxide 35 H (22-32) mmol/L BUN 10 (7-17) mg/dL Creatinine 0.63 (0.52-1.04) mg/dL Estimated GFR > 60.0 (>60) mL/min BUN/Creatinine Ratio 15.9 (6-22) Glucose 89 (80-110) mg/dL Lactate 0.7 (0.7-2.1) mmol/L Calcium 8.5 (8.4-10.2) mg/dL Total Bilirubin 0.2 (0.2-1.3) mg/dL AST 27 (14-36) IU/L ALT 19 (<35) IU/L Alkaline Phosphatase 67 (38-126) U/L Ammonia (9-30) umol/L Total Protein 6.9 (6.3-8.2) g/dL Albumin 3.6 (3.5-5.0) g/dL Globulin 3.3 (1.7-4.1) g/dL Albumin/Globulin Ratio 1.1 (1.0-2.8) TSH (0.47-4.68) uIU/mL Prolactin 46.6 H (3.0-18.6) ng/mL Urine Color Urine Appearance Urine pH (4.5-8.0) Ur Specific [place] (1.000-1.035) Urine Protein (Negative) Urine Glucose (UA) (Negative) g/dL Urine Ketones (NEGATIVE) Urine Occult Blood (Negative) Urine Nitrate (Negative) Urine Bilirubin (NEGATIVE) Urine Urobilinogen (0.2) E.U./dL Ur Leukocyte Esterase (NEGATIVE) Urine RBC (0-5/HPF) Urine WBC (0-5/HPF) Amorphous Sediment Urine Bacteria (None) Ur Culture Indicated? Salicylates < 1.0 (<20) mg/dL U Opiates 300ng/mL cut (Negative) Ur Oxycodone Screen (Negative) Urine Methadone Screen (Negative) Acetaminophen < 10 L (10-30) ug/mL Ur Barbiturates Screen (Negative) U Tricyclic Antidepress (Negative) Ur Phencyclidine Scrn (Negative) Ur Amphetamines Screen (Negative) U Methamphetamines Scrn (Negative) Ur MDMA Scrn (Ecstasy) (Negative) U Benzodiazepines Scrn (Negative) Urine Cocaine Screen (Negative) U Marijuana (THC) Screen (Negative) Ethyl Alcohol < 10 ( - 10) mg/dL SARS-CoV-2 (PCR) (Negative) 09/30/21 09/30/21 09/30/21 Range/Units 18:59 18:59 21:12 WBC (4.5-11.0) X10^3/uL RBC (4.0-5.2) X10^6/uL Hgb (12.0-16.0) g/dL Hct (36-46) % MCV (80-100) fL MCH (26-34) PG MCHC (30-36) % RDW (11.6-14.8) % Plt Count (150-400) X10^3/uL Neut % (Auto) (50-75) % Lymph % (Auto) (25-40) % Grady % (Auto) (3-14) % Eos % (Auto) (2-4) % Baso % (Auto) (0-2) % Neut # (Auto) (1674-8717) /uL Lymph # (Auto) (2651-6287) /uL Grady # (Auto) (0-900) /uL Eos # (Auto) (0-450) /uL Baso # (Auto) (0-100) /uL Sodium (137-145) mmol/L Potassium (3.4-5.1) mmol/L Chloride (98-107) mmol/L Carbon Dioxide (22-32) mmol/L BUN (7-17) mg/dL Creatinine (0.52-1.04) mg/dL Estimated GFR (>60) mL/min BUN/Creatinine Ratio (6-22) Glucose (80-110) mg/dL Lactate (0.7-2.1) mmol/L Calcium (8.4-10.2) mg/dL Total Bilirubin (0.2-1.3) mg/dL AST (14-36) IU/L ALT (<35) IU/L Alkaline Phosphatase (38-126) U/L Ammonia < 9 L (9-30) umol/L Total Protein (6.3-8.2) g/dL Albumin (3.5-5.0) g/dL Globulin (1.7-4.1) g/dL Albumin/Globulin Ratio (1.0-2.8) TSH < 0.015 L (0.47-4.68) uIU/mL Prolactin (3.0-18.6) ng/mL Urine Color Yellow Urine Appearance Clear Urine pH 7.5 (4.5-8.0) Ur Specific [place] <=1.005 (1.000-1.035) Urine Protein Negative (Negative) Urine Glucose (UA) Negative (Negative) g/dL Urine Ketones Negative (NEGATIVE) Urine Occult Blood 3+ H (Negative) Urine Nitrate Negative (Negative) Urine Bilirubin Negative (NEGATIVE) Urine Urobilinogen 0.2 (0.2) E.U./dL Ur Leukocyte Esterase Negative (NEGATIVE) Urine RBC 5-10/hpf H (0-5/HPF) Urine WBC None seen (0-5/HPF) Amorphous Sediment 1+ Urine Bacteria None seen (None) Ur Culture Indicated? Cult not indicated Salicylates (<20) mg/dL U Opiates 300ng/mL cut (Negative) Ur Oxycodone Screen (Negative) Urine Methadone Screen (Negative) Acetaminophen (10-30) ug/mL Ur Barbiturates Screen (Negative) U Tricyclic Antidepress (Negative) Ur Phencyclidine Scrn (Negative) Ur Amphetamines Screen (Negative) U Methamphetamines Scrn (Negative) Ur MDMA Scrn (Ecstasy) (Negative) U Benzodiazepines Scrn (Negative) Urine Cocaine Screen (Negative) U Marijuana (THC) Screen (Negative) Ethyl Alcohol ( - 10) mg/dL SARS-CoV-2 (PCR) (Negative) 09/30/21 09/30/21 Range/Units 21:13 22:00 WBC (4.5-11.0) X10^3/uL RBC (4.0-5.2) X10^6/uL Hgb (12.0-16.0) g/dL Hct (36-46) % MCV (80-100) fL MCH (26-34) PG MCHC (30-36) % RDW (11.6-14.8) % Plt Count (150-400) X10^3/uL Neut % (Auto) (50-75) % Lymph % (Auto) (25-40) % Grady % (Auto) (3-14) % Eos % (Auto) (2-4) % Baso % (Auto) (0-2) % Neut # (Auto) (9846-2324) /uL Lymph # (Auto) (7991-7757) /uL Grady # (Auto) (0-900) /uL Eos # (Auto) (0-450) /uL Baso # (Auto) (0-100) /uL Sodium (137-145) mmol/L Potassium (3.4-5.1) mmol/L Chloride (98-107) mmol/L Carbon Dioxide (22-32) mmol/L BUN (7-17) mg/dL Creatinine (0.52-1.04) mg/dL Estimated GFR (>60) mL/min BUN/Creatinine Ratio (6-22) Glucose (80-110) mg/dL Lactate (0.7-2.1) mmol/L Calcium (8.4-10.2) mg/dL Total Bilirubin (0.2-1.3) mg/dL AST (14-36) IU/L ALT (<35) IU/L Alkaline Phosphatase (38-126) U/L Ammonia (9-30) umol/L Total Protein (6.3-8.2) g/dL Albumin (3.5-5.0) g/dL Globulin (1.7-4.1) g/dL Albumin/Globulin Ratio (1.0-2.8) TSH (0.47-4.68) uIU/mL Prolactin (3.0-18.6) ng/mL Urine Color Urine Appearance Urine pH (4.5-8.0) Ur Specific [place] (1.000-1.035) Urine Protein (Negative) Urine Glucose (UA) (Negative) g/dL Urine Ketones (NEGATIVE) Urine Occult Blood (Negative) Urine Nitrate (Negative) Urine Bilirubin (NEGATIVE) Urine Urobilinogen (0.2) E.U./dL Ur Leukocyte Esterase (NEGATIVE) Urine RBC (0-5/HPF) Urine WBC (0-5/HPF) Amorphous Sediment Urine Bacteria (None) Ur Culture Indicated? Salicylates (<20) mg/dL U Opiates 300ng/mL cut Negative (Negative) Ur Oxycodone Screen Positive H (Negative) Urine Methadone Screen Negative (Negative) Acetaminophen (10-30) ug/mL Ur Barbiturates Screen Negative (Negative) U Tricyclic Antidepress Negative (Negative) Ur Phencyclidine Scrn Negative (Negative) Ur Amphetamines Screen Negative (Negative) U Methamphetamines Scrn Negative (Negative) Ur MDMA Scrn (Ecstasy) Negative (Negative) U Benzodiazepines Scrn Positive H (Negative) Urine Cocaine Screen Negative (Negative) U Marijuana (THC) Screen Positive H (Negative) Ethyl Alcohol ( - 10) mg/dL SARS-CoV-2 (PCR) Negative (Negative) Imaging Data CT scan - chest: Radiologist's Impression: Chart Viewer Diagnostics Subcategory All Activity ??:?? All Time ??:?? All Subcategories Filter Laboratory Imaging Microbiology Pathology Blood Bank Tests Cardiovascular Other Specialty DATE TYPE STATUS REF RANGE/AUTHOR Hx Today 19:[address] Signed Keith Salmon Today 19:48 Chest/Abdomen/Pelvis CT Signed Keith Salmon 04/20/21 14:43 Hand X-Ray Signed Darryl Sheth 03/23/21 09:47 DI Result CC [facility] CT Abdomen/Pelvis wo contrast 02/03/21 10:44 Lumbar Spine X-Ray Signed Esa Avila 02/03/21 10:44 Hip X-Ray Signed Esa Avila 02/03/21 10:[address] Signed Esa Avila 02/03/21 10:44 Chest X-Ray Signed Esa Avila 08/05/20 12:15 DI Result CC [facility], CT Lumbar Spine wo contrast 03/02/20 00:00 Lumbar Spine X-Ray Signed Ramon Glaser 01/26/20 13:27 Outside EKG ? 01/26/20 11:40 Outside EKG ? 07/28/19 10:47 DI Result US thyroid 03/29/17 00:00 Radiology - Historical ? 01/24/17 14:01 Outside G [facility] 01/24/17 14:01 Outside [facility] Mei Sen M ED 65, F?1955 MRN#? [id number] REG ER,?Main ED??R02?? 56.699kg ? Altered Mental Status Acc#? [id number] Resus Status Not Ordered Hx Avail Special Indicators [facility] 30Min Appt Only Home Meds Not Confirmed Prescription Monitoring Program Total 22.5 MME/Day Unconfirmed MEDICATIONS (INSTRUCTIONS) LAST TAKEN Active ??acetaminophen ??1,000 [id number] ??albuterol sulfate 90 mcg/actuation aerosol inhaler ??2 puffINHALATIONQ4-6HPRN#6.7 gram ??aspirin 325 mg tablet ??325 mgPODAILY ??atomoxetine 40 mg capsule ??See Rx Instructions.ROUTE.COMPLEX#30 cap ??baclofen 10 mg tablet ??See Rx Instructions.ROUTE.COMPLEX#270 tab ??bisacodyl 5 mg tablet ??15 mgPOBEDTIME?tab ??cetirizine 10 mg tablet ??10 mgPODAILY#90 tab ??cholecalciferol (vitamin D3) ??10,000 iuPOQDAY#0 ??conjugated estrogens 1.25 mg tablet ??1.25 mgPODAILY#90 tab ??diphenhydramine HCl 25 mg capsule ??50 mgPOTIDPRN#60 cap ??docusate sodium [DOK] ??100 mgPOBIDPRN#30 cap ??fluconazole 150 mg tablet ??150 mgPO.COMPLEX#2 tab ??fluticasone furoate 50 mcg/actuation blister powder for inhalation ??1 inhINHALATIONDAILY#30 ea ??fluticasone propionate 50 mcg/actuation nasal spray,suspension ??1 sprayINTRANASALBIDPRN#15.8 ml ??furosemide 20 mg tablet ??See Rx Instructions.ROUTE.COMPLEX#90 tab ??levetiracetam 500 mg tablet ??500 mgPOBID ??levofloxacin 500 mg tablet ??500 mgPODAILY#5 tab ??levothyroxine 125 mcg tablet ??125 mcgPOQDAY#90 tab ??linaclotide 145 mcg capsule ??145 mcgPODAILY#90 cap ??lorazepam 0.5 mg tablet ??See Rx Instructions.ROUTE.COMPLEX#90 tab ??losartan 100 mg tablet ??100 mgPODAILY#90 tab ??magnesium oxide ??800 mgPODAILY#90 cap ??oxycodone 5 mg tablet ??5 mgPOTIDPRN#90 tab 22.5 MME/Day ??pantoprazole 40 mg tablet,delayed release ??40 mgPODAILY#90 tab ??potassium chloride 10 mEq capsule,extended release ??10 [id number] ??promethazine 25 mg tablet ??See Rx Instructions.ROUTE.COMPLEX#90 tab ??simvastatin 40 mg tablet ??40 mgPOBEDTIME#90 tab ??spironolactone 25 mg tablet ??25 mgPODAILY#90 tab ??sumatriptan succinate 100 mg tablet ??100 mgPODAILYPRN#36 tabMDD 2 tabs daily ??triamcinolone acetonide 0.1 % topical ointment ??1 applicTOPDAILY#80 g DME/Medical Supplies ??Handicap Parking Permit ?Not Included in Conflicts Allergies adhesive (ADHESIVE) RASH doxycycline (DOXYCYCLINE) Rash ketorolac (KETOROLAC) HIVES, Renal insufficiency lithium (LITHIUM) RASH, ERYTHEMA morphine (MORPHINE) ITCHING, Nausea onabotulinumtoxinA RASH, FACIAL SWELLING Penicillins (PENICILLINS) ANAPHYLAXIS risperidone (RISPERIDONE) RASH tramadol (TRAMADOL) Instant Hives, welts hydroxyzine (HYDROXYZINE) rash lisinopril (LISINOPRIL) Rash, COUGH erythromycin base (ERYTHROMYCIN BASE) Anaphylaxis nortriptyline (NORTRIPTYLINE) RASH, Depression bromide salts (BROMIDE SALTS) Pt unsure of reaction estradiol (ESTRADIOL) Pt unsure of reaction etodolac (ETODOLAC) Hives, Renal insufficiency nickel (NICKEL) Rash, skin bleeds nitrofurantoin (NITROFURANTOIN) PT UNSURE OF REACTION NSAIDS (Non-Steroidal Anti-Inflamma (NSAIDS (NON-STEROIDAL ANTI-INFLAMMA) Hives, Renal insufficiency tiotropium (TIOTROPIUM) REACTION NOT LISTED tromethamine (TROMETHAMINE) Hives, PKD verapamil (VERAPAMIL) Pt unsure of reaction zonisamide (ZONISAMIDE) Pt unsure of reaction Iodinated Contrast Media IT WAS VERY BAD sulfasalazine Hives, vomiting codeine (CODEINE) Vomiting duloxetine (From CYMBALTA) MOUTH SORES hydrocodone (From VICODIN) VOMITING methocarbamol (METHOCARBAMOL) VOMITING azithromycin (AZITHROMYCIN) NAUSEA, VOMITING carbamazepine (CARBAMAZEPINE) VOMITING amitriptyline (AMITRIPTYLINE) MORE DEPRESSED, Itching cyclobenzaprine (CYCLOBENZAPRINE) VOMIT desvenlafaxine (DESVENLAFAXINE) VOMIT gabapentin MORE DEPRESSED divalproex sodium (DIVALPROEX SODIUM) Nausea, shortness of breath sertraline (SERTRALINE) Makes me feel more depressed Sulfa (Sulfonamide Antibiotics) (SULFA (SULFONAMIDE ANTIBIOTICS)) VOMITING *ABLE TO TAKE LEVAQUIN ABX ONLY* Problems ? ONSET Orthostatic hypotension Sinusitis, acute maxillary Chronic right-sided low back pain without sciatica ADHD Insomnia disorder, with non-sleep disorder mental comorbidity, episodic Chronic nausea Iliotibial band syndrome, left leg Vision changes Somatic dysfunction of lower extremity Acute neck pain Urinary tract infection Cheilitis Resting tremor Ecchymoses, spontaneous Dry skin Insomnia secondary to depression with anxiety Swallowing difficulty History of non anemic vitamin B12 deficiency Dysuria Hyponatremia with decreased serum osmolality Bipolar 1 disorder Requires assistance with activities of daily living (ADL) Anxiety and depression Anxiety about health Anemia Status post lumbar spinal fusion Polycystic kidney disease IBS (irritable bowel syndrome) Hiatal hernia H/O fibromyalgia Migraine HTN (hypertension) Polycystic kidney disease Hyperlipidemia History of cervical fracture Hypothyroid Segmental and somatic dysfunction of abdomen and other regions Segmental and somatic dysfunction of sacral region Pelvic somatic dysfunction Segmental and somatic dysfunction of lumbar region Segmental dysfunction of rib cage Segmental and somatic dysfunction of thoracic region Cervical somatic dysfunction Cranial somatic dysfunction Headache Chronic lumbar pain Chronic neck pain Postnasal drip Recurrent sinusitis Vital Signs Today 18:55 BP 159/80?H Pulse 79? Resp 16? Temp 98.7 F? O2 Sat 99? Delivery Room Air? Diagnostics Reports Mei Sen??65??F??1955 ? Allergy/Adv: adhesive, doxycycline, ketorolac, lithium, morphine, onabotulinumtoxinA, Penicillins, risperidone, tramadol, hydroxyzine, lisinopril, erythromycin base, nortriptyline, bromide salts, estradiol, etodolac, nickel, nitrofurantoin, NSAIDS (Non-Steroidal Anti-Inflamma, tiotropium, tromethamine, verapamil, zonisamide, Iodinated Contrast Media, sulfasalazine, codeine, duloxetine, hydrocodone, methocarbamol, azithromycin, carbamazepine, amitriptyline, cyclobenzaprine, desvenlafaxine, gabapentin, divalproex sodium, sertraline, Sulfa (Sulfonamide Antibiotics) (More??) Close Head CT (Signed) Keith Samlon - 09/30/21 Chest/Abdomen/Pelvis CT (Signed) Keith Salmon - 09/30/21 Hand X-Ray (Signed) Darryl Sheth - 04/20/21 DI Result CC 03/23/21 Lumbar Spine X-Ray (Signed) Esa Avila - 02/03/21 Hip X-Ray (Signed) Esa Avila - 02/03/[address] (Signed) Esa Avila - 02/03/21 Chest X-Ray (Signed) Esa Avila - 02/03/21 DI Result CC 08/05/20 Lumbar Spine X-Ray (Signed) Ramon Glaser - 03/02/20 Outside EKG 01/26/20 Outside EKG 01/26/20 DI Result 07/28/19 Radiology - Historical 03/29/17 Outside EKG 01/24/17 Outside EKG 01/24/17 Launch?[place] [address] CT Scan Report Signed Patient: Mei Sen MR#: [id number] : 1955 Acct:[id number] Age/Sex: 65 / F Date of Service: 09/30/21 Loc: ED Accession Number: [id number] ?? Procedure: CT chest abd pel w con Ordering Provider: Adarsh Schmidt D.O. PROCEDURE:? CT HEAD/BRAIN WO CON ? INDICATIONS:? Altered mental status.? Frequent falls. ? TECHNIQUE:? Noncontrast 4.5 mm thick angled axial sections acquired from the foramen magnum to the vertex, with coronal and sagittal reformats.? For radiation dose reduction, the following was used:? automated exposure control, adjustment of mA and/or kV according to patient size.? ? COMPARISON:? [facility], CT, CT HEAD/BRAIN WO CON, 02/03/2021, 10:57. ? FINDINGS:? Image quality:? Excellent.? ? CSF spaces:? Basal cisterns are patent.? No extra-axial fluid collections.? The ventricles are symmetric in size and shape.? ? Brain:? No intracranial bleeds or masses.? There is cerebral volume loss for age, with resultant ventricular and sulcal prominence.? There are periventricular and deep white matter chronic small vessel ischemic changes.? There is intracranial internal carotid artery atherosclerosis.? ? Skull and face:? Calvarium and visualized facial bones appear intact, without suspicious lesions.? ? Sinuses:? Visualized sinuses and mastoids are clear.? ? IMPRESSION:? Unremarkable study.? No evidence acute stroke, hemorrhage, or mass. ? ? Dictated by: Keith Salmon M.D. on 09/30/2021 at 21:18 ? ? Approved by: Keith Salmon M.D. on 09/30/2021 at 21:22 ? MDM Narrative Medical decision making narrative: 65-year-old female presents with on bearable right side pain. She has had multiple falls as of late a recent hospitalization for polypharmacy. It is unclear if her mental status is at her baseline or not, she seems relatively coherent. She requires hospitalization due to multiple rib fractures and intractable pain, surgery has been notified, patient admitted to medicine. Discharge Plan Departure Patient Disposition: Admitted As Inpatient Clinical Impression: Intractable abdominal pain, Multiple fractures of ribs, Polypharmacy Admit Date/Time: 09/30/21 22:58 Admit Provider: Domingo Garcia
--- NOTE | 2021-09-30 19:48 | DI.CT.S_ITS ---
PROCEDURE: CT CHEST ABD PEL W CON INDICATIONS: altered, multiple falls. Multiple recent right rib fractures. Right chest pain, right flank pain, right upper quadrant pain TECHNIQUE: After the administration of intravenous contrast, 5 mm thick sections acquired from the lung apices to the symphysis. 2.5 mm thick coronal and sagittal reformats were acquired. Additional 7 mm thick coronal maximum intensity projection (MIP) reformats acquired through the lungs. Optional 10-minute delayed imaging may be performed from the kidneys to the bladder. For radiation dose reduction, the following was used: automated exposure control, adjustment of mA and/or kV according to patient size. COMPARISON: [facility], CT, CT ABDOMEN PELVIS WITHOUT CONTRAST, 09/22/2021, 23:05. FINDINGS: Image quality: Excellent. CHEST: Lungs: No pulmonary contusions or lacerations. No acute airspace opacities. Mild to moderate right pleural effusion with associated compressive atelectasis in the right lung base. Minimal bibasilar honeycombing consistent with basilar pulmonary fibrosis. Central and peripheral airways appear patent and normal in caliber. Mediastinum: No mediastinal hematomas. Heart size is normal. No pericardial effusion. Thoracic aorta and pulmonary arteries demonstrate normal size and enhancement. No mediastinal or hilar adenopathy. Esophagus is normal in caliber. No hiatal hernia. Chest wall: Multiple right rib fractures, including the right 5th, 6, 7th, 8th, and 9th ribs. No subcutaneous emphysema. No axillary or supraclavicular adenopathy. Thyroid gland is unremarkable as visualized. ABDOMEN: Solid organs: Liver is normal in size and enhancement, without lacerations. Gallbladder is surgically absent Biliary system is non-dilated. Pancreas enhances normally, without transection. Spleen is normal in size and enhancement, without lacerations. No adrenal hematomas. . There is focal diminished enhancement in the lower pole of the left kidney suggesting possible pyelonephritis. Anteriorly, the middle pole of the right kidney has diminished enhancement, also possibly representing pyelonephritis. There are numerous prominent large exophytic cyst off the right kidney. Peritoneum and bowel: No free fluid or air. Unenhanced bowel loops demonstrate normal wall thickness and caliber. Nodes and vessels: No retroperitoneal or mesenteric adenopathy. Aorta and inferior vena cava are normal in size and enhancement. Diffuse atherosclerotic calcifications of the aorta and iliac arteries. Miscellaneous: No ventral hernias. PELVIS: Genitourinary: Bladder wall thickness is normal. Miscellaneous: No inguinal hernias or adenopathy. Uterus is surgically absent. Bones: Pelvic ring and hip joints appear intact. No vertebral compression fractures. Remote S1 laminectomy with posterior lateral ankita and pedicle screw fixation of L5-S1 and interbody fusion at L4-L5. IMPRESSION: 1. There are numerous right rib fractures, including right 5th, 6, 7th, 8th, and 9th ribs. 2. There is a [id number] associated right pleural effusion with mild compressive atelectasis in the right lung base. 3. Mild bibasilar pulmonary fibrosis. 4. Abnormal enhancement pattern in both kidneys suggest possible bilateral pyelonephritis. 5. Remote cholecystectomy and hysterectomy. Dictated by: Keith Salmon M.D. on 09/30/2021 at 21:38 Approved by: Keith Salmon M.D. on 09/30/2021 at 21:46
--- NOTE | 2021-09-30 19:48 | DI.CT.S_ITS ---
PROCEDURE: CT HEAD/BRAIN WO CON INDICATIONS: Altered mental status. Frequent falls. TECHNIQUE: Noncontrast 4.5 mm thick angled axial sections acquired from the foramen magnum to the vertex, with coronal and sagittal reformats. For radiation dose reduction, the following was used: automated exposure control, adjustment of mA and/or kV according to patient size. COMPARISON: [facility], CT, CT HEAD/BRAIN WO CON, 02/03/2021, 10:57. FINDINGS: Image quality: Excellent. CSF spaces: Basal cisterns are patent. No extra-axial fluid collections. The ventricles are symmetric in size and shape. Brain: No intracranial bleeds or masses. There is cerebral volume loss for age, with resultant ventricular and sulcal prominence. There are periventricular and deep white matter chronic small vessel ischemic changes. There is intracranial internal carotid artery atherosclerosis. Skull and face: Calvarium and visualized facial bones appear intact, without suspicious lesions. Sinuses: Visualized sinuses and mastoids are clear. IMPRESSION: Unremarkable study. No evidence acute stroke, hemorrhage, or mass. Dictated by: Keith Salmon M.D. on 09/30/2021 at 21:18 Approved by: Keith Salmon M.D. on 09/30/2021 at 21:22
[2021-09-30 19:52] LABS: Prolactin 46.6 ng/mL (3.0-18.6)
[2021-09-30 20:17] LABS: Thyroid Stimulating Hormone < 0.015 uIU/mL (0.47-4.68)
--- NOTE | 2021-09-30 21:10 | PC.NURSE ---
Have gone in to see patient multiple times- answered patient's call light and walked out then turned around to walk back in as patient used call light again immediately after. Patient called to say that she was having pain, right after patient said that she was hurting and would like to go home to hurt alone because she felt like the staff was not moving quickly enough (patient had been in room for 42 minutes at this point), then patient needed to go to the bathroom. Patient was able to quickly get out of bed with full mobility.
[2021-09-30 21:15] LABS: Appearance Urine UA CLEAR; Bilirubin Urine UA NEGATIVE (NEGATIVE); Color Urine UA YELLOW; Glucose Urine UA NEGATIVE (Negative); Ketones Urine UA NEGATIVE (NEGATIVE); Leukocyte Esterase Urine UA NEGATIVE (NEGATIVE); Nitrite Urine UA NEGATIVE (Negative); Occult Blood Urine UA 3+ (Negative); Protein Urine UA NEGATIVE (Negative); Specific Gravity Urine UA <=1.005 (1.000-1.035); Urobilinogen Urine UA 0.2 E.U./dL (0.2)
[2021-09-30 21:16] LABS: pH Urine UA 7.5 (4.5-8.0)
[2021-09-30 21:21] LABS: UR Morphine/Opiate cutoff 300 Negative (Negative); Ur Creatinine Normal (Normal); Ur Specific Gravity Normal (Normal); Urine Amphetamines Negative (Negative); Urine Cocaine Negative (Negative); Urine Tetrahydrocannabinol Positive (Negative); Urine pH Normal (Normal)
[2021-09-30 21:22] LABS: Urine Barbiturates Negative (Negative); Urine Benzodiazepines Positive (Negative); Urine MDMA Negative (Negative); Urine Methadone Negative (Negative); Urine Methamphetamines Negative (Negative); Urine Oxycodone Positive (Negative); Urine Phencyclidine Negative (Negative); Urine Tricyclic Antidepressant Negative (Negative)
[2021-09-30 21:23] LABS: Amorphous Sediment Urine 1+; Bacteria Urine None Seen; Culture Indicated Urine Cult Not Indicated; RBC Urine 5-10/HPF (0-5/HPF); WBC Urine None Seen (0-5/HPF)
[2021-09-30] MEDS: ONDANSETRON 4 MG/2 ML INJ IV (21:35)
[2021-09-30] MEDS: HYDROMORPHONE 1 MG INJ IV (21:35)
[2021-09-30 22:28] LABS: COVID19 -Nasal RAPID Negative (Negative)
[2021-10-01 00:03] VITALS: BMI 22.4
[2021-10-01] MEDS: HYDROMORPHONE 1 MG INJ IV ×7 (00:18→21:13)
[2021-10-01] MEDS: ONDANSETRON 4 MG/2 ML INJ IV ×3 (01:33→18:15)
[2021-10-01] MEDS: LORazepam 0.5 MG TABLET PO ×2 (01:33→10:25)
--- NOTE | 2021-10-01 03:07 | PC.NURSE ---
Addendum entered by Miranda Lentz R.N. 10/01/21 05:45: Unable to complete medication reconciliation and verifying allergies due to pt. become upset, agitated, crying and very emotional stating I can't do this, I'm so tired and I'm in pain. Noted pt's speech to be pressured and hyperverbal when in this mood. Original Note: Pt. admitted to the unit at 2335 for intractable pain due to multiple rib fractures from a fall. Pt. oriented to rm. bed control and call light, instructed to not get OOB without any assistance. Pt. is ambulatory, steady on her feet. Pt. is a&o, c/o right side abd./flank and right ribs pain rate at 8/10. Hydromorphone administered x2 so far. Tried to administer Vicodin 2 tabs per MD order but pt. became very upset, started crying stating that Vicodin does not work for her and that she takes Oxy 5mg 4xd at home without much effect. Pt is very labile, gets anxious very easily, teary eyed and hysterical. Pt. reassured and informed her that nurse will give her Hydromorphone IV q2h for pain control. Pt. agreeable to this plan.
[2021-10-01 03:51] VITALS: BP 153/66; PULSE 83; RESP 16; TEMP 36.4; O2SAT 93
[2021-10-01 05:44] LABS: Add Manual Diff / Slide Review NO; Basophils Absolute Auto 100 /uL (0-100); Eosinophils Absolute Auto 200 /uL (0-450); Eosinophils Percent Auto 4.4 % (2-4); Hematocrit 29.9 % (36-46); Hemoglobin 9.7 g/dL (12.0-16.0); Lymphocytes Absolute Auto 1800 /uL (1100-4500); Lymphocytes Percent Auto 32.9 % (25-40); Mean Corpuscular HGB Conc 32.5 % (30-36); Mean Corpuscular Hemoglobin 28.9 PG (26-34); Mean Corpuscular Volume 88.9 fL (80-100); Monocytes Absolute Auto 500 /uL (0-900); Monocytes Percent Auto 9.8 % (3-14); Neutrophils Absolute Auto 2900 /uL (1500-7000); Neutrophils Percent Auto 51.9 % (50-75); Platelet Count 319 X10^3/uL (150-400); Red Blood Cell Count 3.36 X10^6/uL (4.0-5.2); Red Cell Distribution Width 15.2 % (11.6-14.8); White Blood Cell Count 5.6 X10^3/uL (4.5-11.0)
[2021-10-01 05:50] LABS: Blood Urea Nitrogen 7 mg/dL (7-17); Calcium 8.8 mg/dL (8.4-10.2); Carbon Dioxide 34 mmol/L (22-32); Chloride 99 mmol/L (98-107); Estimated Glomerular Filt Rate > 60.0 mL/min (>60); Glucose 101 mg/dL (80-110); HEMOLYSIS < 15 (0-50); Potassium 3.8 mmol/L (3.4-5.1); Sodium 133 mmol/L (137-145)
--- NOTE | 2021-10-01 07:54 | P.HP_ITS ---
History of Present Illness History of Present Illness Date Patient Seen: 10/01/21 Chief complaint: Deja from [facility], not doing well Narrative: This is a 65-year-old female with a long list of current medical conditions including anemia, anxiety, benzodiazepine dependency, recent right-sided rib fractures, essential tremor, bipolar disorder, chronic neck pain, fibromyalgia, hypertension, hyperlipidemia and rheumatoid arthritis who now presents with severe right-sided abdominal pain and related right lower flank rib fracture pain. She is unaware of how she fell and broke her ribs. She gives different answers as to how long ago she was found to have these broken ribs but sometime in the last week she was taken to the hospital in [place] and was hospitalized there for at least 3 days until she left against medical advice because ?they were not doing anything for me. ? She is unable to describe what she wanted done that they were not doing and is unable to articulate her reasons for going home. She tells me various time frames for how long she has been home but it has been between 1 and 3 days. She finally contacted Dr. Tristan who recommended that she come to the ED. Her urine drug screen here is positive for THC and benzodiazepines. She mentions several times that she is pending abdominal hernia surgery at [facility] at the end of October. She is very tangential and wonders off topic very quickly. She has a significant anxiety overlay to any discussion of her physical symptoms. Her abdominal CT scan does not show any obvious source of her abdominal pain complaint other than the multiple rib fractures. Fractures are seen at the right 5th, 6th, 7th, 8th and 9th ribs. There is a moderate size right pleural effusion. There is abnormal enhancement in both kidneys suggesting possible bilateral pyelonephritis. Patient History Medical History Acute neck pain ADHD Allergies Anemia Ankle pain Anxiety Anxiety about health Anxiety and depression Benign familial tremor Bipolar 1 disorder Cervical somatic dysfunction Cervical spine disease (~2014) Cheilitis Chicken pox Chronic lumbar pain Chronic nausea Chronic neck pain Chronic right-sided low back pain without sciatica Cranial somatic dysfunction Depression Diverticular disease Dry skin Dysuria Ecchymoses, spontaneous Fibromyalgia Glaucoma Headache History of falling History of non anemic vitamin B12 deficiency Hyperlipidemia Hypertension Hyponatremia with decreased serum osmolality Iliotibial band syndrome, left leg Insomnia disorder, with non-sleep disorder mental comorbidity, episodic Insomnia secondary to depression with anxiety Irritable bowel syndrome Kidney disease Measles Migraine headache Orthostatic hypotension Osteoarthritis Pelvic somatic dysfunction Postnasal drip Recurrent sinusitis Recurrent sinusitis Requires assistance with activities of daily living (ADL) Resting tremor Rheumatoid arthritis Segmental and somatic dysfunction of abdomen and other regions Segmental and somatic dysfunction of lumbar region Segmental and somatic dysfunction of sacral region Segmental and somatic dysfunction of thoracic region Segmental dysfunction of rib cage Sinusitis, acute maxillary Somatic dysfunction of lower extremity Swallowing difficulty Urinary tract infection Vertigo Vision changes Vision disorder Surgical History Anesthesia H/O ventral hernia repair History of appendectomy History of arthroplasty of right knee (01/2019) History of bilateral salpingo-oophorectomy History of section History of cholecystectomy History of colonoscopy History of reduction mammoplasty History of spinal surgery (~2015) History of tonsillectomy History of total abdominal hysterectomy Family & Social History Family History Father History of heart disease Hypertension Hyperlipidemia Mother Diabetes mellitus History of heart disease Hyperlipidemia Hypertension Mental health problem Brother No problems noted. Brother Leukemia History of heart disease Diabetes mellitus Sister Kidney disease Alcoholic Mental health problem Grandfather History of heart disease Hypertension Grandmother Cancer Grandfather Hypertension History of heart disease Grandmother Low blood pressure Family/Other Mental health problem Social History: household members significant other Prior Living Arrangements Apartment/Condo Safety & Behavioral: Feels Safe in Current Yes Environment Been Physically Hurt or No Threatened By a Person Suicidal Ideation Description None Suicide Plan Description No Plan Tobacco & Substance use: Tobacco type cannabis/marijuana Smoking Status Current some day smoker alcohol intake former alcohol intake frequency other Substance Use Type marijuana,painkillers,prescription drug Meds Home Medications and Allergies Home Medications Medication Instructions Recorded Confirmed Type cholecalciferol (vitamin D3) 250 5,000 iu PO QDAY #0 03/28/17 10/01/21 History mcg (10,000 unit) tablet potassium chloride 10 mEq 10 meq PO 3XW 04/08/19 09/20/21 History capsule,extended release acetaminophen 500 mg capsule 1,000 mg PO Q6H PRN 02/24/20 10/01/21 History cetirizine 10 mg tablet (Zyrtec) 10 mg PO DAILY #90 tab 03/30/20 10/01/21 Rx magnesium oxide 800 mg PO DAILY #90 cap 03/30/20 09/20/21 Rx simvastatin 40 mg tablet 40 mg PO BEDTIME #90 tab 12/08/20 09/20/21 Rx losartan 100 mg tablet 100 mg PO DAILY #90 tab 12/09/20 09/20/21 Rx conjugated estrogens 1.25 mg 1.25 mg PO DAILY #90 tab 03/23/21 10/01/21 Rx tablet (Premarin) spironolactone 25 mg tablet 25 mg PO DAILY #90 tab 03/23/21 09/20/21 Rx sumatriptan succinate 100 mg tablet 100 mg PO DAILY PRN #36 tab MDD 2 03/31/21 09/20/21 Rx tabs daily triamcinolone acetonide 0.1 % 1 applic TOP DAILY #80 g 03/31/21 09/20/21 Rx topical ointment fluticasone propionate 50 1 spray INTRANASAL BID PRN #15.8 ml 05/20/21 10/01/21 Rx mcg/actuation nasal spray,suspension levothyroxine 125 mcg tablet 125 mcg PO QDAY #90 tab 05/20/21 10/01/21 Rx (Synthroid) albuterol sulfate 90 mcg/actuation 2 puff INHALATION Q4-6H PRN #6.7 08/08/21 10/01/21 Rx aerosol inhaler (ProAir HFA) gram promethazine 25 mg tablet See Rx Instructions .ROUTE 08/19/21 10/01/21 Rx .COMPLEX #90 tab Handicap Parking Permit #1 ea 09/08/21 09/20/21 Rx fluticasone furoate 50 1 inh INHALATION DAILY #30 ea 09/08/21 10/01/21 Rx mcg/actuation blister powder for inhalation linaclotide 145 mcg capsule 145 mcg PO DAILY #90 cap 09/08/21 10/01/21 Rx (Linzess) pantoprazole 40 mg tablet,delayed 40 mg PO DAILY #90 tab 09/08/21 09/20/21 Rx release lorazepam 0.5 mg tablet See Rx Instructions .ROUTE 09/15/21 09/20/21 Rx .COMPLEX #90 tab oxycodone 5 mg tablet 5 mg PO TID PRN #90 tab 09/20/21 09/20/21 Rx atomoxetine 40 mg capsule 40 mg PO DAILY 10/01/21 10/01/21 History baclofen 10 mg tablet 10 mg PO TID 10/01/21 10/01/21 History diphenhydramine HCl 25 mg capsule 50 mg PO QPM 10/01/21 10/01/21 History furosemide 20 mg tablet 20 mg PO DAILY 10/01/21 10/01/21 History Allergies Allergy/AdvReac Type Severity Reaction Status Date / Time adhesive [ADHESIVE] Allergy Severe RASH Verified 09/20/21 11:33 doxycycline [DOXYCYCLINE] Allergy Severe Rash Verified 09/20/21 11:33 ketorolac [KETOROLAC] Allergy Severe HIVES, Verified 09/20/21 11:33 Renal insufficiency lithium [LITHIUM] Allergy Severe RASH, Verified 09/20/21 11:33 ERYTHEMA morphine [MORPHINE] Allergy Severe ITCHING, Verified 09/20/21 11:33 Nausea onabotulinumtoxinA Allergy Severe RASH, Verified 09/20/21 11:33 FACIAL SWELLING Penicillins [PENICILLINS] Allergy Severe ANAPHYLAXIS Verified 09/20/21 11:33 risperidone [RISPERIDONE] Allergy Severe RASH Verified 09/20/21 11:33 tramadol [TRAMADOL] Allergy Severe Instant Verified 09/20/21 11:33 Hives, welts hydroxyzine [HYDROXYZINE] Allergy Intermediate rash Verified 09/20/21 11:33 lisinopril [LISINOPRIL] Allergy Intermediate Rash, COUGH Verified 09/20/21 11:33 erythromycin base Allergy Mild Anaphylaxis Verified 09/20/21 11:33 [ERYTHROMYCIN BASE] nortriptyline [NORTRIPTYLINE] Allergy Mild RASH, Verified 09/20/21 11:33 Depression bromide salts [BROMIDE SALTS] Allergy Unknown Pt unsure Verified 09/20/21 11:33 of reaction estradiol [ESTRADIOL] Allergy Unknown Pt unsure Verified 09/20/21 11:33 of reaction etodolac [ETODOLAC] Allergy Unknown Hives, Verified 09/20/21 11:33 Renal insufficiency nickel [NICKEL] Allergy Unknown Rash, skin Verified 09/20/21 11:33 bleeds nitrofurantoin Allergy Unknown PT UNSURE Verified 09/20/21 11:33 [NITROFURANTOIN] OF REACTION NSAIDS (Non-Steroidal Allergy Unknown Hives, Verified 09/20/21 11:33 Anti-Inflamma Renal [NSAIDS (NON-STEROIDAL insufficiency ANTI-INFLAMMA] tiotropium [TIOTROPIUM] Allergy Unknown REACTION Verified 09/20/21 11:33 NOT LISTED tromethamine [TROMETHAMINE] Allergy Unknown Hives, PKD Verified 09/20/21 11:33 verapamil [VERAPAMIL] Allergy Unknown Pt unsure Verified 09/20/21 11:33 of reaction zonisamide [ZONISAMIDE] Allergy Unknown Pt unsure Verified 09/20/21 11:33 of reaction Iodinated Contrast Media Allergy IT WAS Verified 09/20/21 11:33 VERY BAD sulfasalazine Allergy Hives, Verified 09/20/21 11:33 vomiting codeine [CODEINE] AdvReac Severe Vomiting Verified 09/20/21 11:33 duloxetine [From CYMBALTA] AdvReac Severe MOUTH Verified 09/20/21 11:33 SORES hydrocodone [From VICODIN] AdvReac Severe VOMITING Verified 09/20/21 11:33 methocarbamol [METHOCARBAMOL] AdvReac Severe VOMITING Verified 09/20/21 11:33 azithromycin [AZITHROMYCIN] AdvReac Intermediate NAUSEA, Verified 09/20/21 11:33 VOMITING carbamazepine [CARBAMAZEPINE] AdvReac Intermediate VOMITING Verified 09/20/21 11:33 amitriptyline [AMITRIPTYLINE] AdvReac Mild MORE Verified 09/20/21 11:33 DEPRESSED, Itching cyclobenzaprine AdvReac Mild VOMIT Verified 09/20/21 11:33 [CYCLOBENZAPRINE] desvenlafaxine AdvReac Mild VOMIT Verified 09/20/21 11:33 [DESVENLAFAXINE] gabapentin AdvReac Mild MORE Verified 09/20/21 11:33 DEPRESSED divalproex sodium AdvReac Unknown Nausea, Verified 09/20/21 11:33 [DIVALPROEX SODIUM] shortness of breath sertraline [SERTRALINE] AdvReac Unknown Makes me Verified 09/20/21 11:33 feel more depressed Sulfa (Sulfonamide AdvReac Unknown VOMITING Verified 09/20/21 11:33 Antibiotics) *ABLE TO [SULFA (SULFONAMIDE TAKE ANTIBIOTICS)] LEVAQUIN ABX ONLY* Review of Systems Review of Systems Narrative: Positive for anxiety, rib fracture pain, abdominal pain Negative for fevers, chills, sweats, shortness breath, bleeding, rashes, seizures, headaches, sore throat, new allergies. Exam Vital Signs (past 8 hours): - 10/01/21 03:51 Temperature 97.5 F L Pulse Rate 83 Respiratory Rate 16 Blood Pressure 153/66 H Pulse Oximetry 93 Oxygen Delivery Method Room Air Oxygen Flow Rate 0 Narrative Exam Narrative: She is alert and oriented x3. She is in extreme distress, very tangential, unable to converse without wandering off topic. Pupils are equally round and reactive to light and accommodation. Extraocular muscles are intact. Throat looks normal No lymph nodes are felt head, neck, supraclavicular area There is no thyromegaly JVD is less than 6 cm No carotid bruits heard Heart is regular rate and rhythm without murmur Lungs are diminished at the right base but otherwise clear Abdomen is soft, mildly tender in the right lower lateral ribs and the right lower quadrant. It is worth noting that these areas are not directly adjacent to each other. Extremities have trace bilateral pitting ankle edema Skin has no rash or jaundice. She does have multiple bruises on her arms. Neurologic exam: The patient is high anxiety. There is no lateralizing deficits. There is no tremor Cranial nerves 2-[address] Objective Imaging [address] scan - abdomen: Radiologist's impression: IMPRESSION:? ? 1. There are numerous right rib fractures, including right 5th, 6, 7th, 8th, and 9th ribs. ? 2. There is a [id number] associated right pleural effusion with mild compressive atelectasis in the right lung base. ? 3. Mild bibasilar pulmonary fibrosis. ? 4. Abnormal enhancement pattern in both kidneys suggest possible bilateral pyelonephritis. ? 5. Remote cholecystectomy and hysterectomy.? Labs Result Diagrams: 10/01/21 05:25 10/01/21 05:25 Labs: Laboratory Results - last 24 hr 09/30/21 09/30/21 09/30/21 18:59 18:59 18:59 WBC 7.0 RBC 3.10 L Hgb 9.1 L Hct 27.9 L MCV 90.0 MCH 29.2 MCHC 32.4 RDW 15.0 H Plt Count 324 Neut % (Auto) 59.9 Lymph % (Auto) 26.9 Boyle % (Auto) 8.8 Eos % (Auto) 3.9 Baso % (Auto) 0.5 Neut # (Auto) 4200 Lymph # (Auto) 1900 Boyle # (Auto) 600 Eos # (Auto) 300 Baso # (Auto) 0 Sodium 134 L Potassium 3.5 Chloride 98 Carbon Dioxide 35 H BUN 10 Creatinine 0.63 Estimated GFR > 60.0 BUN/Creatinine Ratio 15.9 Glucose 89 Lactate 0.7 Calcium 8.5 Total Bilirubin 0.2 AST 27 ALT 19 Alkaline Phosphatase 67 Ammonia Total Protein 6.9 Albumin 3.6 Globulin 3.3 Albumin/Globulin Ratio 1.1 TSH Prolactin 46.6 H Urine Color Urine Appearance Urine pH Ur Specific [place] Urine Protein Urine Glucose (UA) Urine Ketones Urine Occult Blood Urine Nitrate Urine Bilirubin Urine Urobilinogen Ur Leukocyte Esterase Urine RBC Urine WBC Amorphous Sediment Urine Bacteria Ur Culture Indicated? Salicylates < 1.0 U Opiates 300ng/mL cut Ur Oxycodone Screen Urine Methadone Screen Acetaminophen < 10 L Ur Barbiturates Screen U Tricyclic Antidepress Ur Phencyclidine Scrn Ur Amphetamines Screen U Methamphetamines Scrn Ur MDMA Scrn (Ecstasy) U Benzodiazepines Scrn Urine Cocaine Screen U Marijuana (THC) Screen Ethyl Alcohol < 10 SARS-CoV-2 (PCR) 09/30/21 09/30/21 09/30/21 18:59 18:59 21:12 WBC RBC Hgb Hct MCV MCH MCHC RDW Plt Count Neut % (Auto) Lymph % (Auto) Boyle % (Auto) Eos % (Auto) Baso % (Auto) Neut # (Auto) Lymph # (Auto) Boyle # (Auto) Eos # (Auto) Baso # (Auto) Sodium Potassium Chloride Carbon Dioxide BUN Creatinine Estimated GFR BUN/Creatinine Ratio Glucose Lactate Calcium Total Bilirubin AST ALT Alkaline Phosphatase Ammonia < 9 L Total Protein Albumin Globulin Albumin/Globulin Ratio TSH < 0.015 L Prolactin Urine Color Yellow Urine Appearance Clear Urine pH 7.5 Ur Specific [place] <=1.005 Urine Protein Negative Urine Glucose (UA) Negative Urine Ketones Negative Urine Occult Blood 3+ H Urine Nitrate Negative Urine Bilirubin Negative Urine Urobilinogen 0.2 Ur Leukocyte Esterase Negative Urine RBC 5-10/hpf H Urine WBC None seen Amorphous Sediment 1+ Urine Bacteria None seen Ur Culture Indicated? Cult not indicated Salicylates U Opiates 300ng/mL cut Ur Oxycodone Screen Urine Methadone Screen Acetaminophen Ur Barbiturates Screen U Tricyclic Antidepress Ur Phencyclidine Scrn Ur Amphetamines Screen U Methamphetamines Scrn Ur MDMA Scrn (Ecstasy) U Benzodiazepines Scrn Urine Cocaine Screen U Marijuana (THC) Screen Ethyl Alcohol SARS-CoV-2 (PCR) 09/30/21 09/30/21 10/01/21 21:13 22:00 05:25 WBC 5.6 RBC 3.36 L Hgb 9.7 L Hct 29.9 L MCV 88.9 MCH 28.9 MCHC 32.5 RDW 15.2 H Plt Count 319 Neut % (Auto) 51.9 Lymph % (Auto) 32.9 Boyle % (Auto) 9.8 Eos % (Auto) 4.4 H Baso % (Auto) 1.0 Neut # (Auto) 2900 Lymph # (Auto) 1800 Boyle # (Auto) 500 Eos # (Auto) 200 Baso # (Auto) 100 Sodium Potassium Chloride Carbon Dioxide BUN Creatinine Estimated GFR BUN/Creatinine Ratio Glucose Lactate Calcium Total Bilirubin AST ALT Alkaline Phosphatase Ammonia Total Protein Albumin Globulin Albumin/Globulin Ratio TSH Prolactin Urine Color Urine Appearance Urine pH Ur Specific [place] Urine Protein Urine Glucose (UA) Urine Ketones Urine Occult Blood Urine Nitrate Urine Bilirubin Urine Urobilinogen Ur Leukocyte Esterase Urine RBC Urine WBC Amorphous Sediment Urine Bacteria Ur Culture Indicated? Salicylates U Opiates 300ng/mL cut Negative Ur Oxycodone Screen Positive H Urine Methadone Screen Negative Acetaminophen Ur Barbiturates Screen Negative U Tricyclic Antidepress Negative Ur Phencyclidine Scrn Negative Ur Amphetamines Screen Negative U Methamphetamines Scrn Negative Ur MDMA Scrn (Ecstasy) Negative U Benzodiazepines Scrn Positive H Urine Cocaine Screen Negative U Marijuana (THC) Screen Positive H Ethyl Alcohol SARS-CoV-2 (PCR) Negative 10/01/21 05:25 WBC RBC Hgb Hct MCV MCH MCHC RDW Plt Count Neut % (Auto) Lymph % (Auto) Boyle % (Auto) Eos % (Auto) Baso % (Auto) Neut # (Auto) Lymph # (Auto) Boyle # (Auto) Eos # (Auto) Baso # (Auto) Sodium 133 L Potassium 3.8 Chloride 99 Carbon Dioxide 34 H BUN 7 Creatinine 0.54 Estimated GFR > 60.0 BUN/Creatinine Ratio 13.0 Glucose 101 Lactate Calcium 8.8 Total Bilirubin AST ALT Alkaline Phosphatase Ammonia Total Protein Albumin Globulin Albumin/Globulin Ratio TSH Prolactin Urine Color Urine Appearance Urine pH Ur Specific [place] Urine Protein Urine Glucose (UA) Urine Ketones Urine Occult Blood Urine Nitrate Urine Bilirubin Urine Urobilinogen Ur Leukocyte Esterase Urine RBC Urine WBC Amorphous Sediment Urine Bacteria Ur Culture Indicated? Salicylates U Opiates 300ng/mL cut Ur Oxycodone Screen Urine Methadone Screen Acetaminophen Ur Barbiturates Screen U Tricyclic Antidepress Ur Phencyclidine Scrn Ur Amphetamines Screen U Methamphetamines Scrn Ur MDMA Scrn (Ecstasy) U Benzodiazepines Scrn Urine Cocaine Screen U Marijuana (THC) Screen Ethyl Alcohol SARS-CoV-2 (PCR) Assessment & Plan Assessment & Plan narrative: This is a 65-year-old female with high anxiety, benzodiazepine dependency, fibromyalgia, rheumatoid arthritis, hypertension, hyperlipidemia and hypothyroidism who presents with several days of right-sided rib/chest wall pain from occult rib fractures that occurred during a fall that she cannot recall. Her benzodiazepine screen is positive, indicating that she is using medications that are known to be high risk for falls in the geriatric age range which she is now in. Right Rib 5 -> 9 Fractures, present on admission. Active. -continue dilaudid and hydrocodone as needed. -her complaint of abdominal pain is likely related to this with flaring after she went home Against Medical Advice and tried to get by without IV pain medicines. Abdominal Pain, present on admission. Active. -abdominal CT scan does not reveal any acute abdominal process. This is likely referred pain from her rib fractures. -doubt pyelonephritis despite the CT scan as the white blood count is normal, urinalysis does not show any evidence for urinary infection and the pain is not in the expected locations. -she indicates she has hernias. These are not commented on in the report from the CT but she is apparently pending hernia surgery at soon. -no signs of bowel obstruction or other hernia complication on CT scan report Severe Anxiety, present on admission. Active. -continue lorazepam IV as needed. -benzodiazepines are contraindicated beginning at age 65 due to risks of recurrent falls causing fractures. This appears to be an example of that risk. Benzodiazepine Dependency, present on admission. Active. -this is likely a longstanding daily use habit. Hypertension, present on admission. Chronic. -continue losartan and spironolactone/potassium chloride Hyperlipidemia, present admission. Chronic. -continue simvastatin Hypothyroidism, present on admission. Active. -TSH is suppressed at less than 0.015 -hold levothyroxine and adjust dose downward at discharge. Normocytic anemia, present admission. Chronic. -hemoglobin 9.7 Her is her backup decision maker Sequential compression devices and continued mobility to prevent DVT Time Spent With Patient Critical Care time: I spent a total of [] minutes of critical care time on this patient's care today; this time is exclusive of procedural time. Quality VTE Deep Vein Thrombosis/Pulmonary Embolism Present on Admission: Yes
[2021-10-01 07:55] VITALS: BP 167/87; PULSE 80; RESP 12; TEMP 36.9; O2SAT 97
[2021-10-01] MEDS: SUMAtriptan 25 MG TABLET 100 MG PO (08:59)
[2021-10-01] MEDS: PANTOPRAZOLE DR 40 MG TABLET PO (09:00)
[2021-10-01] MEDS: LOSARTAN 50 MG TABLET 100 MG PO (10:16)
[2021-10-01] MEDS: ESTROGENS, CONJUGATED 0.625 MG TABLET 1.25 MG PO (10:16)
[2021-10-01] MEDS: BACLOFEN 10 MG TABLET PO ×3 (10:16→21:10)
[2021-10-01] MEDS: SPIRONOLACTONE 25 MG TABLET PO (10:16)
[2021-10-01] MEDS: MAGNESIUM OXIDE 400 MG TABLET 800 MG PO (10:16)
[2021-10-01] MEDS: FUROSEMIDE 20 MG TABLET PO (10:16)
[2021-10-01 11:30] VITALS: BP 137/81; PULSE 78; RESP 13; TEMP 36.9; O2SAT 96
--- NOTE | 2021-10-01 12:32 | CM.DANOTE ---
Patient is a 65 yo female who was admitted on 09/30/21 for intractable pain/fall. Pt has [facility] for insurance and her PCP is Dr. Judah Tristan. EMR was reviewed. Per MD, pt with recent AMA from [facility] after being admitted there for a couple days for same admission reason as here. Pt had multiple GLFs with rib fxs and intractable pain and pt has chronic pain and polypharmacy at baseline. SW met bedside with pt and explained role and pt confirms she still lives in [facility] with her Sig Other and has local Dtr in [facility]. Pt is not working and considered disabled due to her medical hx and has bipolar dx at baseline. Pt states she is independent at baseline but does not really drive but her Sig Other does and denies any hx of SNF but has had [facility] before. 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 Per RN, pt has been able to ambulate independently and quite steady to the bathroom in the room but requesting assist with walker due to pt's high fall risk. Pt tearful due to the pain and states she left AMA from [facility] as they were not giving me my meds the way they are prescribed. Pt would be open to HH if needed but states she cannot leave this hospital until my pain is better managed. Currently no PT/OT orders in place as pt has been ambulating with nursing staff or independently. Plan: SW to follow closely for further discharge planning with pt towards determining if HH needed at discharge and any further identified needs. Likely Dtr or Sig Other to provide transport at d/c. 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 No Advance Directives on File No History Provided By Patient,Medical Record Has Patient been admitted in last 30 No days? Prior Living Arrangements Apartment/Condo Household Members significant other Type of transporation used prior to Relies on Others admit Independent with ADL's Yes Is patient alert and oriented? Yes: some polypharm increasing confusion Caregiver for Another No Patient/Family Preference Home with Home Health Barriers to Discharge Yes Comment Pt's intractable pain and chronic pain at baseline Discharge Plan Home with Home Health Transportation Arrangement Sig Other plans to provide transport home at d/c. Whiteboard Updated in Patient Room with Yes name and ext. # of Lumber Planer Review Status In Process Please Provide Date Initial DC 10/01/21 Assessment Was Performed Next Review Type Continued Stay Review
--- NOTE | 2021-10-01 12:41 | CM.DPC ---
Addendum entered by MELANIE Ledbetter 10/02/21 11:17: ADD: This note placed on this chart in error. Copy/Pasted this note into the correct chart. Cannot undo this note as MELANIE Milton is not scheduled on shift today JW Original Note: DCP IV-Abx vs orals Per Ortho MD, pt tolerated knee washout well but pending cultures and ID MD consult to determine IV-Abx vs orals at discharge. Per OT, pt ambulated well and SBA and recommending safe d/c home and no need for HH at this time but PT to do stairs with pt this afternoon to confirm safe for home and r/o HH. SW met bedside with pt and explained role and he confirms mobility-gore he is safe for d/c home with spouse. SW discussed IV-Abx potential options pending dosing frequency and updated pt that Medicare does not cover the cost of home infusion and therefore options would likely be SNF vs outpt infusion clinic depending on how many times a day he needs his IV-Abx. Pt acknowledges understanding and if possible would want outpt clinic over SNF. Pt hopeful or oral abx at d/c. Plan: SW to follow closely for final culture results and ID MD recommendations towards determining IV-Abx vs orals at d/c and then if IV-Abx the dosing frequency would determine outpt infusion clinic vs SNF. Pt's Medicare does not cover home infusion but maybe supplemental would hot die picker part of cost? MELANIE Milton
[2021-10-01] MEDS: PROMETHAZINE 25 MG TABLET PO (14:14)
[2021-10-01 16:35] VITALS: BP 134/75; PULSE 82; RESP 14; TEMP 37; O2SAT 96
[2021-10-01 20:30] VITALS: PULSE 82; RESP 16; O2SAT 97
[2021-10-01] MEDS: BUDESONIDE 0.5 MG/2 ML NEB INH (20:30)
[2021-10-01 20:40] VITALS: BP 130/77; PULSE 85; RESP 16; TEMP 37.1; O2SAT 96
[2021-10-01] MEDS: ATORVASTATIN 20 MG TABLET PO (21:10)
[2021-10-02] MEDS: HYDROMORPHONE 1 MG INJ IV ×7 (00:12→22:20)
[2021-10-02 00:50] VITALS: BP 136/79; PULSE 82; RESP 16; TEMP 37.1; O2SAT 97
[2021-10-02] MEDS: LORazepam 0.5 MG TABLET PO ×4 (00:55→17:58)
[2021-10-02 07:30] VITALS: BP 157/92; PULSE 84; RESP 20; TEMP 36.7; O2SAT 97
[2021-10-02] MEDS: FUROSEMIDE 20 MG TABLET PO (07:56)
[2021-10-02] MEDS: SPIRONOLACTONE 25 MG TABLET PO (07:57)
[2021-10-02] MEDS: MAGNESIUM OXIDE 400 MG TABLET 800 MG PO (07:57)
[2021-10-02] MEDS: LOSARTAN 50 MG TABLET 100 MG PO (07:57)
[2021-10-02] MEDS: ESTROGENS, CONJUGATED 0.625 MG TABLET 1.25 MG PO (08:11)
[2021-10-02] MEDS: CHOLECALCIFEROL (VITAMIN D3) 5,000 UNIT TABLET 5000 UNIT PO (08:11)
[2021-10-02] MEDS: PANTOPRAZOLE DR 40 MG TABLET PO (08:13)
--- NOTE | 2021-10-02 08:14 | PC.NURSE ---
Addendum entered by Jade Barrera R.N. 10/02/21 12:24: pt up stomping around room slamming walker on floor shut the door to her room ,staff in room and assist to bathroom. pt mumbling and crying about pain. to be medicated as ordered. bed alarmed call light within reach. Original Note: Pt up to Bathroom with sba using walker and steady, pt has been asking for shower multi times now refuses, pt mumbles and no eye contact while talking with staff very teary eyed. c/o right rib pain 05/15 medicated with dilaudid 1mg IV. spoke about possible po pain meds and pt became very upset about that option I took oxy at home and it didn't work pain level during breakfast 02/12 will monitor. bed alarmed call light within reach.
[2021-10-02 08:54] VITALS: PULSE 93; RESP 18; O2SAT 94
[2021-10-02] MEDS: BUDESONIDE 0.5 MG/2 ML NEB INH ×2 (08:54→19:55)
--- NOTE | 2021-10-02 09:06 | PM.PN.1 ---
Subjective Subjective Date Patient Seen: 10/02/21 Interval history: She is seen in her room here to follow up her rib fracture pain and related abdominal pain along with her anxiety. She appears calmer and in less frantic pain, today but she says it hurts just as much. She is applying her own home supply of Triamcinolone cream to her face to smooth out the rough bumps. Her additional complaint is that she is ?freezing? today. Exam Vital Signs (past 8 hours): - 10/02/21 07:30 Temperature 98.0 F Pulse Rate 84 Respiratory Rate 20 Blood Pressure 157/92 H Pulse Oximetry 97 Oxygen Delivery Method Room Air Oxygen Flow Rate 0 Narrative Exam Narrative: She is alert and oriented x3. She is in moderate distress but appears calmer than yesterday despite her protestations that today is just as bad. Heart is regular rate and rhythm without murmur Lungs are clear to auscultation bilaterally Extremities have no ankle edema Abdomen has mild right lower quadrant tenderness. She is tender along the right low back/torso. Objective Labs Result Diagrams: 10/01/21 05:25 10/01/21 05:25 [facility] Medical History Acute neck pain ADHD Allergies Anemia Ankle pain Anxiety Anxiety about health Anxiety and depression Benign familial tremor Bipolar 1 disorder Cervical somatic dysfunction Cervical spine disease (~2014) Cheilitis Chicken pox Chronic lumbar pain Chronic nausea Chronic neck pain Chronic right-sided low back pain without sciatica Cranial somatic dysfunction Depression Diverticular disease Dry skin Dysuria Ecchymoses, spontaneous Fibromyalgia Glaucoma Headache History of falling History of non anemic vitamin B12 deficiency Hyperlipidemia Hypertension Hyponatremia with decreased serum osmolality Iliotibial band syndrome, left leg Insomnia disorder, with non-sleep disorder mental comorbidity, episodic Insomnia secondary to depression with anxiety Irritable bowel syndrome Kidney disease Measles Migraine headache Orthostatic hypotension Osteoarthritis Pelvic somatic dysfunction Postnasal drip Recurrent sinusitis Recurrent sinusitis Requires assistance with activities of daily living (ADL) Resting tremor Rheumatoid arthritis Segmental and somatic dysfunction of abdomen and other regions Segmental and somatic dysfunction of lumbar region Segmental and somatic dysfunction of sacral region Segmental and somatic dysfunction of thoracic region Segmental dysfunction of rib cage Sinusitis, acute maxillary Somatic dysfunction of lower extremity Swallowing difficulty Urinary tract infection Vertigo Vision changes Vision disorder Surgical History Anesthesia H/O ventral hernia repair History of appendectomy History of arthroplasty of right knee (01/2019) History of bilateral salpingo-oophorectomy History of section History of cholecystectomy History of colonoscopy History of reduction mammoplasty History of spinal surgery (~2016) History of tonsillectomy History of total abdominal hysterectomy Family History Father History of heart disease Hypertension Hyperlipidemia Mother Diabetes mellitus History of heart disease Hyperlipidemia Hypertension Mental health problem Brother No problems noted. Brother Leukemia History of heart disease Diabetes mellitus Sister Kidney disease Alcoholic Mental health problem Grandfather History of heart disease Hypertension Grandmother Cancer Grandfather Hypertension History of heart disease Grandmother Low blood pressure Family/Other Mental health problem Social History household members: significant other Smoking Status: Current some day smoker alcohol intake: former Assessment & Plan Assessment & Plan narrative: This is a 65-year-old female with high anxiety, benzodiazepine dependency, fibromyalgia, rheumatoid arthritis, hypertension, hyperlipidemia and hypothyroidism who presents with several days of right-sided rib/chest wall pain from occult rib fractures that occurred during a fall that she cannot recall.? Her benzodiazepine screen is positive, indicating that she is using medications that are known to be high risk for falls in the geriatric age range which she is now in. Right Rib 5 -> 9 Fractures, present on admission. Active. -continue dilaudid and hydrocodone as needed.? -her complaint of abdominal pain is likely related to this with flaring after she went home Against Medical Advice from [facility] inpatient and tried to get by without IV pain medicines. -continue IV pain medication with plans to rotate to oral pain medication starting 10/02. Abdominal Pain, present on admission.? Active. -abdominal CT scan does not reveal any acute abdominal process.? This is likely referred pain from her rib fractures. -doubt pyelonephritis despite the CT scan as the white blood count is normal, urinalysis does not show any evidence for urinary infection and the pain is not in the expected locations.? -she indicates she has hernias.? These are not commented on in the report from the CT but she is apparently pending unclear hernia surgery at soon.? -no signs of bowel obstruction or other hernia complication on CT scan report Severe Anxiety, present on admission.? Active. -continue lorazepam IV as needed.? -benzodiazepines are contraindicated beginning at age 65 due to risks of recurrent falls causing fractures.? This appears to be an example of that risk. Benzodiazepine Dependency, present on admission.? Active. -this is likely a longstanding daily use habit. Hypertension, present on admission.? Chronic.? -continue losartan and spironolactone/potassium chloride Hyperlipidemia, present admission.? Chronic.? -continue simvastatin Hypothyroidism, present on admission.? Active. -TSH is suppressed at less than 0.015 -hold levothyroxine and adjust dose downward at discharge.? Normocytic anemia, present admission.? Chronic.? -hemoglobin 9.7 Disposition: She is planning to go home once her pain reaches levels that can be managed with oral pain medication. That should occur in the next few days. She will be trying to avoid IV pain medication and take the oral pain medicines as she understands that those have a longer lasting effect. Her is her backup decision maker Sequential compression devices and continued mobility to prevent DVT Time Spent With Patient Critical Care time: I spent a total of [] minutes of critical care time on this patient's care today; this time is exclusive of procedural time. Quality VTE Deep Vein Thrombosis/Pulmonary Embolism Present on Admission: Yes
[2021-10-02] MEDS: BACLOFEN 10 MG TABLET PO ×3 (11:10→20:11)
[2021-10-02] MEDS: OXYCODONE IR 5 MG TABLET PO ×3 (12:21→17:58)
[2021-10-02] MEDS: PROMETHAZINE 25 MG TABLET PO ×2 (12:21→18:38)
--- NOTE | 2021-10-02 12:45 | PC.NURSE ---
Addendum entered by Lindy Azar R.N. 10/02/21 18:21: bed alarm on as pt had recent fall pre-admit. pt continuously get OOB without calling and swears because bed alarm is on. Addendum entered by Lindy Azar R.N. 10/02/21 15:41: activity pt has been up multiple times ambulating in room with steady gait. able to perform ADLs mostly independent, some requiring just set up assist. Pt tells this RN that she takes oxycodone 5mg at home so she should be receiving stronger medication in hospital setting. educated pt about availability of oxycodone (Q3 prn) and that her RX at home is TID so this is an increased dose. Has barrier cream to apply to buttocks for comfort. Original Note: pain/anxiety/agitation 1205 pt up in room with FWW gait steady, crying and slamming things around. Up to BR and slams door stating give me my pain medicine. Get my doctor in here now because what he told me this morning is not happening. This RN reviewed pt's orders with pt. Well give me the damn pills then but it won't work without the shot. Provided pt with vicodin x2 for pain PO, pt refuses you realize if I take that I'll just throw up everywhere don't you?!. Reviewed pain medication options with pt and pt agreeable to taking PO oxycodone When pt asked to rate pain states where don't I hurt? and rates 10/10. but I still need the shot too because my body is different and it takes those pills 1-2 hours before they work. Pt medicated including promethazine as pt states nausea associated with PO pain meds, reference EMAR. pt also states her butt hurts but I can't lay on my side because my ribs hurt too bad. has waffle cushion in place. offered pillows and assist to bridge bottom, pt refuses.
--- NOTE | 2021-10-02 13:44 | PT.IIE ---
Current Diagnoses Multiple fractures of ribs, right side, initial encounter for closed fracture (10/02/21) Surgical History (Last Reviewed 09/30/21 @ 21:32 by Adarsh Schmidt DO) Anesthesia Medical History (Last Reviewed 09/30/21 @ 21:32 by Adarsh Schmidt DO) Acute neck pain ADHD Allergies Anemia Ankle pain Anxiety Anxiety about health Anxiety and depression Benign familial tremor Bipolar 1 disorder Cervical somatic dysfunction Cervical spine disease (~2014) Cheilitis Chicken pox Chronic lumbar pain Chronic nausea Chronic neck pain Chronic right-sided low back pain without sciatica Cranial somatic dysfunction Depression Diverticular disease Dry skin Dysuria Ecchymoses, spontaneous Fibromyalgia Glaucoma Headache History of falling History of non anemic vitamin B12 deficiency Hyperlipidemia Hypertension Hyponatremia with decreased serum osmolality Iliotibial band syndrome, left leg Insomnia disorder, with non-sleep disorder mental comorbidity, episodic Insomnia secondary to depression with anxiety Irritable bowel syndrome Kidney disease Measles Migraine headache Orthostatic hypotension Osteoarthritis Pelvic somatic dysfunction Postnasal drip Recurrent sinusitis Recurrent sinusitis Requires assistance with activities of daily living (ADL) Resting tremor Rheumatoid arthritis Segmental and somatic dysfunction of abdomen and other regions Segmental and somatic dysfunction of lumbar region Segmental and somatic dysfunction of sacral region Segmental and somatic dysfunction of thoracic region Segmental dysfunction of rib cage Sinusitis, acute maxillary Somatic dysfunction of lower extremity Swallowing difficulty Urinary tract infection Vertigo Vision changes Vision disorder Physical Therapy Inpatient Evaluation/Re-Eval M1 PT/OT-IP Prior Functional Status Start: 10/02/21 13:16 Freq: NEEDED Status: Active Protocol: Document 10/02/21 13:44 AW (Rec: 10/02/21 14:11 AW [id number]) Medical Review Prior Functional Status Medical History Reviewed Yes Communication Pt is hyperverbal and presents with heightened anxiety. She is able to make her needs known and was pleasantly conversive at this encounter. Mobility and Gait Independent without assistive device. Pt has history of fibromyalgia and multiple falls. Polypharmacy may contribute to elevated falls risk. She does not recall the fall that resulted in right- sided fractures involving ribs 5-9. Activities of Daily Living and IADL's Independent. Pt states she depends on her boyfriend, Nitish , to drive her to appointments . Prior Functional Level (Other details) Pt was hospitalized for same at [facility] and left [facility] on 09/25/21. PMH includes but is not limited to bipolar disorder, anxiety, lumbar surgery, fibromyalgia, and RA. Social History Household Members significant other Living Arrangements Apartment/Condo Number of Floors (Floors) One Floor Number of Stairs To Enter/Railing? Pt lives in a first floor apartment with level entrance. Home Environment Standard Height Toilet,Tub/ Shower Home Equipment Front Wheel Walker,Straight Cane,Shower Seat with Backrest ,Grab Bars In Shower Additional Social History Comment Pt has a toilet safety frame. She lives with her SO, Nitish, who works outside the home. During Nitish's work hours, pt is frequently alone. Her daughter, Estelle, lives in [place] but has small children and is limited in her ability to assist. M2 PT-IP Current Condition Start: 10/02/21 13:16 Freq: NEEDED Status: Active Protocol: Document 10/02/21 13:44 AW (Rec: 10/02/21 14:11 AW [id number]) Physical Therapy Current Condition Current Condition Evaluation Date 10/02/21 Treatment Diagnosis falls; rib fx 5-9; impaired mobility Onset Date 09/23/21 M3 PT-IP Subjective Start: 10/02/21 13:16 Freq: NEEDED Status: Active Protocol: Document 10/02/21 13:44 AW (Rec: 10/02/21 14:11 AW [id number]) Subjective Physical Therapy Visit Type Type Initial Evaluation Visit Start Time 13:32 Visit Stop Time 13:44 Total Visit Minutes 12 Physical Therapy Visit Comments Patient Comments I'm feeling a little better since I had a shower. Patient Goals Pt perseverates on pain medications and does not communicate goals. Therapy Pain Assessment Pain When Pain Assessed During Mobility Pain Present Pain Present Pain Reported Location Right Lateral Abdomen Intensity 8 Scale Used Numeric (0 - 10) Pain Management Techniques Distraction,Timing of Activity with Medications M4 PT-IP Mobility and Gait Start: 10/02/21 13:16 Freq: NEEDED Status: Active Protocol: Document 10/02/21 13:44 AW (Rec: 10/02/21 14:11 AW [id number]) PT-Bed Mobility Assessment Sit to Supine Sit to Supine Standby Assistance Scooting Scooting to Edge of Bed Independent PT-Transfer Assessment Sit to and From Stand Sit to and from Stand Standby Assistance Equipment Transfer Assistive Device None Orthotic/Prosthetic Devices or Brace: No Transfers Transfer Destination Bed,Chair Transfer Technique Stand Step Pivot Transfer Ability Level of Assist Standby Assistance Comments Mobility Comments As PT entered the room, pt was standing next to the chair, organizing her belongings on the wall shelves. She was observed rotating her trunk with little hesitation or apprehension. She walked around the room, only occasionally contacting her own FWW. She transferred to the chair SBA and then decided to get back to bed. She refused ambulation in the halls. She transferred to the bed SBA and moved on the bed using her legs and arms to twist, reach, and reposition herself. Pt was left with call light and tray table in reach . Gait Assessment Gait Gait Assistance Required: Standby Assistance Distance (Feet) 40 Assistive Devices Assistive Device None Orthotic/Prosthetic Devices or Brace: No Gait Deviations General Gait Pattern Antalgic Factors Limiting Gait Function Factors Limiting Gait Function Pain,Poor Safety Awareness Comments Gait Comments Pt walked in the room with little apprehension. She verbalized increased pain but she was not tense or guarded as she moved around the room. Stair Climbing Assessment Comments Stair Climbing Comments No stairs in home environment. PT-Balance Assessment Sitting Balance and Reactions Static Sitting Balance Ability Good Dynamic Sitting Balance Ability Good Standing Balance and Reactions Static Standing Balance Ability Good Dynamic Standing Balance Ability Fair Device Used no AD; FWW M5 PT-IP Objective Assessments Start: 10/02/21 13:16 Freq: NEEDED Status: Active Protocol: Document 10/02/21 13:44 AW (Rec: 10/02/21 14:11 AW [id number]) Orientation Orientation/Cognition Level of Alertness Alert Orientation Name,Day of Week,Place, Situation Language Function Ability No Deficits Noted Safety Awareness Decreased Safety Awareness Gross Range of Motion Lower Extremity ROM Assessment Within Functional Limits Strength Lower Extremity Strength Assessment Bilaterally Impaired Hip pt only tolerates 4-/5 resistance due to pain Knee 4/5 Ankle 4+/5 M6 PT-IP Treatment Start: 10/02/21 13:16 Freq: NEEDED Status: Active Protocol: Document 10/02/21 13:44 AW (Rec: 10/02/21 14:11 AW [id number]) Physical Therapy Treatment Education Education Provided Safety M7 PT-IP Assessment and Plan Start: 10/02/21 13:16 Freq: NEEDED Status: Active Protocol: Document 10/02/21 13:44 AW (Rec: 10/02/21 14:11 AW [id number]) PT Summary Assessment and Plan Summary Impairments Pain,Strength,Balance Assessment Summary Mei is a 65 yo woman with history of lumbar surgery, bipolar disorder, anxiety, benzodiazepine dependence, fibromyalgia, lumbar surgery, and RA. She is admitted with intractible pain from rib fractures (5-9) sustained in a fall which she does not recall. PT observed the pt moving around her room, reaching, turning, twisting, walking with and without FWW SBA. Her hip strength is affected by pain but she requires no more than SBA for all mobility. No acute PT needs are identified but pt does have a significant falls history which may be linked to polypharmacy. Pt may benefit from outpatient PT to address falls risk. She will be safe to discharge home with assist once medically stable. Frequency of Treatment Frequency Of Treatment Discharge Precautions Other Precautions falls Recommendations To Nursing Amount of Assist Needed Standby Assistance Discharge Recommendations PT Discharge Recommendations Home with Assistance, Outpatient PT Transportation Needs at Discharge Private Vehicle
[2021-10-02 14:55] VITALS: BP 145/80; PULSE 86; RESP 18; TEMP 37.5; O2SAT 93
[2021-10-02 19:55] VITALS: PULSE 86; RESP 20; O2SAT 93
[2021-10-02 20:05] VITALS: BP 122/77; PULSE 88; RESP 19; TEMP 37.1; O2SAT 93
[2021-10-02] MEDS: SODIUM CHLORIDE 0.9% FLUSH 10 ML IV ×2 (20:11→22:21)
[2021-10-02] MEDS: ATORVASTATIN 20 MG TABLET PO (20:11)
[2021-10-02] MEDS: DOCUSATE 100 MG CAPSULE PO (20:11)
--- NOTE | 2021-10-02 20:59 | PC.NURSE ---
Addendum entered by Nadia Smyth R.N. 10/03/21 06:08: Slept most of night after receiving Dilaudid but at 0436 complained of 9/10 RUQ pain radiating to back and was medicated with Oxycodone along with Phenergan as she states narcotics cause her to become nauseated. Upset and crying at 0500 so was medicated with Ativan. Asleep at 0530 but then awake again at 0604 and states pain is still 6/10 and requests/medicated with Dilaudid. Original Note: Patient is alert and oriented but speech is poorly articulated and can be difficult to understand. Breath sounds diminished in right LL; RA sat is 93%. HRR. Denied nausea although was medicated earlier with Phenergan. BT present and is passing flatus. Is voiding without dysuria, frequency or urgency. Is able to turn herself in bed. Up to bathroom with walker and SBA. Scattered bruises. Has open area on buttock crease; appears to have been a blister than opened up. Barrier cream applied to open area and has waffle cushion on bed. Complains of right rib/back pain and was medicated just prior to shift change with Dilaudid and stated pain was 5-6/10 at time of assessment. Fall risk score is high and bed alarm is activated.
[2021-10-02] MEDS: ACETAMINOPHEN 325 MG TABLET 975 MG PO (22:25)
[2021-10-02] MEDS: diphenhydrAMINE 25 MG TABLET PO (22:47)
[2021-10-03] VITALS (8 sets, daily range): BP systolic 107–163; BP diastolic 70–88; PULSE 77–91; RESP 16–19; TEMP 36.7–37.4; O2SAT 93–99
[2021-10-03] MEDS: OXYCODONE IR 5 MG TABLET PO ×2 (04:36→17:28)
[2021-10-03] MEDS: PROMETHAZINE 25 MG TABLET PO ×2 (04:39→17:24)
[2021-10-03] MEDS: LORazepam 0.5 MG TABLET PO ×3 (04:59→20:57)
[2021-10-03] MEDS: HYDROMORPHONE 1 MG INJ IV ×2 (06:04→08:40)
[2021-10-03] MEDS: SODIUM CHLORIDE 0.9% FLUSH 10 ML IV ×3 (06:05→20:04)
[2021-10-03] MEDS: SUMAtriptan 25 MG TABLET 100 MG PO ×2 (06:25→20:57)
[2021-10-03] MEDS: PANTOPRAZOLE DR 40 MG TABLET PO (08:40)
[2021-10-03] MEDS: BACLOFEN 10 MG TABLET PO ×3 (08:40→20:03)
[2021-10-03] MEDS: FUROSEMIDE 20 MG TABLET PO (08:40)
[2021-10-03] MEDS: SPIRONOLACTONE 25 MG TABLET PO (08:40)
[2021-10-03] MEDS: MAGNESIUM OXIDE 400 MG TABLET 800 MG PO (08:40)
[2021-10-03] MEDS: ACETAMINOPHEN 325 MG TABLET 975 MG PO ×2 (08:40→17:16)
[2021-10-03] MEDS: DOCUSATE 100 MG CAPSULE PO ×2 (08:40→20:03)
[2021-10-03] MEDS: CHOLECALCIFEROL (VITAMIN D3) 5,000 UNIT TABLET 5000 UNIT PO (08:40)
[2021-10-03] MEDS: LOSARTAN 50 MG TABLET 100 MG PO (08:41)
[2021-10-03] MEDS: ESTROGENS, CONJUGATED 0.625 MG TABLET 1.25 MG PO (08:48)
[2021-10-03] MEDS: POTASSIUM CHLORIDE 10 MEQ TAB PO (08:48)
[2021-10-03] MEDS: BUDESONIDE 0.5 MG/2 ML NEB INH ×2 (09:06→20:44)
[2021-10-03] MEDS: diphenhydrAMINE 25 MG TABLET PO (10:48)
--- NOTE | 2021-10-03 16:46 | PM.PN.1 ---
Subjective Subjective Date Patient Seen: 10/03/21 Interval history: 65-year-old female with a history of anxiety admitted to the hospital for multiple rib fractures, pain in addition to her anxiety. She is quite tearful today. She requests Bisacodyl for bowel movement. I offered psychiatric consultation for her anxiety which she declined. Exam Vital Signs (past 8 hours): - 10/03/21 09:07 10/03/21 16:12 Temperature 98.4 F Pulse Rate 77 91 H Respiratory Rate 16 18 Blood Pressure 107/70 Pulse Oximetry 93 93 Oxygen Delivery Method Room Air Oxygen Flow Rate 0 Narrative Exam Narrative: Tearful female lying in bed with multiple complaints Resp Other: Lungs decreased but clear to auscultation Cardio Other: Cardiac exam: Regular rate and rhythm normal S1-S2 GI Other: Abdomen: Distended, mildly tender Extrem Other: Extremity no edema Objective Labs Result Diagrams: 10/01/21 05:25 10/01/21 05:25 [facility] Medical History Acute neck pain ADHD Allergies Anemia Ankle pain Anxiety Anxiety about health Anxiety and depression Benign familial tremor Bipolar 1 disorder Cervical somatic dysfunction Cervical spine disease (~2014) Cheilitis Chicken pox Chronic lumbar pain Chronic nausea Chronic neck pain Chronic right-sided low back pain without sciatica Cranial somatic dysfunction Depression Diverticular disease Dry skin Dysuria Ecchymoses, spontaneous Fibromyalgia Glaucoma Headache History of falling History of non anemic vitamin B12 deficiency Hyperlipidemia Hypertension Hyponatremia with decreased serum osmolality Iliotibial band syndrome, left leg Insomnia disorder, with non-sleep disorder mental comorbidity, episodic Insomnia secondary to depression with anxiety Irritable bowel syndrome Kidney disease Measles Migraine headache Orthostatic hypotension Osteoarthritis Pelvic somatic dysfunction Postnasal drip Recurrent sinusitis Recurrent sinusitis Requires assistance with activities of daily living (ADL) Resting tremor Rheumatoid arthritis Segmental and somatic dysfunction of abdomen and other regions Segmental and somatic dysfunction of lumbar region Segmental and somatic dysfunction of sacral region Segmental and somatic dysfunction of thoracic region Segmental dysfunction of rib cage Sinusitis, acute maxillary Somatic dysfunction of lower extremity Swallowing difficulty Urinary tract infection Vertigo Vision changes Vision disorder Surgical History Anesthesia H/O ventral hernia repair History of appendectomy History of arthroplasty of right knee (01/2019) History of bilateral salpingo-oophorectomy History of section History of cholecystectomy History of colonoscopy History of reduction mammoplasty History of spinal surgery (~2016) History of tonsillectomy History of total abdominal hysterectomy Family History Father History of heart disease Hypertension Hyperlipidemia Mother Diabetes mellitus History of heart disease Hyperlipidemia Hypertension Mental health problem Brother No problems noted. Brother Leukemia History of heart disease Diabetes mellitus Sister Kidney disease Alcoholic Mental health problem Grandfather History of heart disease Hypertension Grandmother Cancer Grandfather Hypertension History of heart disease Grandmother Low blood pressure Family/Other Mental health problem Social History household members: significant other Smoking Status: Current some day smoker alcohol intake: former Assessment & Plan Assessment & Plan narrative: This is a 65-year-old female with high anxiety, benzodiazepine dependency, fibromyalgia, rheumatoid arthritis, hypertension, hyperlipidemia and hypothyroidism who presents with several days of right-sided rib/chest wall pain from occult rib fractures that occurred during a fall that she cannot recall.? Her benzodiazepine screen is positive, indicating that she is using medications that are known to be high risk for falls in the geriatric age range which she is now in. Right Rib 5 -> 9 Fractures, present on admission. Active. -continue dilaudid and hydrocodone as needed.? -her complaint of abdominal pain is likely related to this with flaring after she went home Against Medical Advice from [facility] inpatient and tried to get by without IV pain medicines. -continue IV pain medication with plans to rotate to oral pain medication starting 10/02. -D/c IV pain medications today Abdominal Pain, present on admission.? Active. -abdominal CT scan does not reveal any acute abdominal process.? This is likely referred pain from her rib fractures. -doubt pyelonephritis despite the CT scan as the white blood count is normal, urinalysis does not show any evidence for urinary infection and the pain is not in the expected locations.? -she indicates she has hernias.? These are not commented on in the report from the CT but she is apparently pending unclear hernia surgery at soon.? -no signs of bowel obstruction or other hernia complication on CT scan report -bisacodyl for bowels Severe Anxiety, present on admission.? Active. -continue lorazepam IV as needed.? -benzodiazepines are contraindicated beginning at age 65 due to risks of recurrent falls causing fractures.? This appears to be an example of that risk. -will continue to suggest psychiatric consultation Benzodiazepine Dependency, present on admission.? Active. -this is likely a longstanding daily use habit. Hypertension, present on admission.? Chronic.? -continue losartan and spironolactone/potassium chloride Hyperlipidemia, present admission.? Chronic.? -continue simvastatin Hypothyroidism, present on admission.? Active. -TSH is suppressed at less than 0.015 -hold levothyroxine and adjust dose downward at discharge.? Normocytic anemia, present admission.? Chronic.? -hemoglobin 9.7 Disposition:? She is planning to go home once her pain reaches levels that can be managed with oral pain medication.? That should occur in the next few days.? She will be trying to avoid IV pain medication and take the oral pain medicines as she understands that those have a longer lasting effec Time Spent With Patient Critical Care time: I spent a total of [] minutes of critical care time on this patient's care today; this time is exclusive of procedural time. Quality VTE Deep Vein Thrombosis/Pulmonary Embolism Present on Admission: Yes
[2021-10-03] MEDS: BISACODYL 5 MG TABLET 10 MG PO (17:21)
--- NOTE | 2021-10-03 19:08 | PC.NURSE ---
A&Ox4. Extremely anxious and tearful with conversations. Patient yelled at this chief underwriter throughout the day but had trouble articulating her needs or concerns. Dr. Centeno and this chief underwriter attempted to answer her questions and offer support and this was met with anger and frustrating. Pain 8-10/10 in right sided chest and abdomen. Given PRP tyenol 650 mg , oxycodone 5 mg PO, Iv dilaudid which helped alleviate the pain to 6/10. Given PRN atavan 1x for anxiety and PRN bendryl 1x for itching. Patient is constipated but refused to take senna. PO bisacodyl was ordered and given. Reminded patient she also as a bisacodyl suppository and passed on to night she this is an option if the oral medication is not effective. HTN 163/77. Other vitals stable. Room air. SBA to toilet. Calls appropriately. Minimal appetite. Call light within reach, bed low.
[2021-10-03] MEDS: ATORVASTATIN 20 MG TABLET PO (20:03)
[2021-10-03 20:13] LABS: HEMOLYSIS < 15 (0-50); Iron 35 ug/dL (37-170)
[2021-10-03 20:23] LABS: Percent Iron Saturation 9 % (15-50); Total Iron Binding Capacity 395 ug/dL (265-497); Transferrin 329 mg/dL (206-381)
--- NOTE | 2021-10-03 21:26 | PC.NURSE ---
Addendum entered by Nadia Smyth R.N. 10/04/21 02:53: Patient crying because she states pain in right ribs/back and abdomen is 9/10. Requested to have both Tylenol + oxycodone along with Phenergan due to nausea from opiates. Upon returning to room with requested medications patient was asleep and had to be awakened to take meds. Once awake still stating pain is 9/10. Original Note: Patient is alert and oriented but emotionally labile. Goes from thanking staff to accusing them of not meeting her needs and becomes tearful and anxious. States she had a miserable day because someone called her an opiate addict. Does have history of polypharmacy and becomes more calm after she gets whatever medication she has requested. Breath sounds diminished in right LL with RA sat of 96%. HRR. Denies nausea but requests Phenergan whenever she takes the oxycodone. BT present but states she is not passing flatus and has not had a BM since 09/30. Did receive Dulcolax on previous shift as well as prune juice and will defer Dulcolax suppository until a.m. States she is not urinating much so measuring device placed in toilet to monitor urine output. Is able to turn herself in bed. Up to bathroom with walker and SBA as has history of frequent falls. Medicated with Imitrex at 2056 for complaint of migraine headache and also given po Ativan. Fall risk score is high and bed alarm is activated.
[2021-10-04 02:31] VITALS: BP 145/95; PULSE 92; RESP 18; TEMP 36.8; O2SAT 96
[2021-10-04] MEDS: ACETAMINOPHEN 325 MG TABLET 975 MG PO ×2 (02:48→19:39)
[2021-10-04] MEDS: PROMETHAZINE 25 MG TABLET PO ×2 (02:48→10:09)
[2021-10-04] MEDS: OXYCODONE IR 5 MG TABLET PO ×2 (02:49→10:09)
[2021-10-04 06:24] LABS: Add Manual Diff / Slide Review NO; Basophils Absolute Auto 100 /uL (0-100); Basophils Percent Auto 0.8 % (0-2); Eosinophils Absolute Auto 400 /uL (0-450); Eosinophils Percent Auto 4.9 % (2-4); Hematocrit 32.4 % (36-46); Hemoglobin 10.8 g/dL (12.0-16.0); Lymphocytes Absolute Auto 2200 /uL (1100-4500); Lymphocytes Percent Auto 29.7 % (25-40); Mean Corpuscular HGB Conc 33.2 % (30-36); Mean Corpuscular Hemoglobin 29.3 PG (26-34); Mean Corpuscular Volume 88.2 fL (80-100); Monocytes Absolute Auto 600 /uL (0-900); Monocytes Percent Auto 8.8 % (3-14); Neutrophils Absolute Auto 4100 /uL (1500-7000); Neutrophils Percent Auto 55.8 % (50-75); Platelet Count 438 X10^3/uL (150-400); Red Blood Cell Count 3.68 X10^6/uL (4.0-5.2); White Blood Cell Count 7.3 X10^3/uL (4.5-11.0)
[2021-10-04 06:38] LABS: Alanine Aminotransferase 13 IU/L (<35); Albumin 3.8 g/dL (3.5-5.0); Alkaline Phosphatase 70 U/L (38-126); Aspartate Aminotransferase 27 IU/L (14-36); BUN Creatinine Ratio 23.9 (6-22); Bilirubin Total 0.3 mg/dL (0.2-1.3); Blood Urea Nitrogen 21 mg/dL (7-17); Calcium 9.4 mg/dL (8.4-10.2); Carbon Dioxide 33 mmol/L (22-32); Chloride 94 mmol/L (98-107); Estimated Glomerular Filt Rate > 60.0 mL/min (>60); Globulin 3.8 g/dL (1.7-4.1); Glucose 96 mg/dL (80-110); HEMOLYSIS < 15 (0-50); Potassium 4.3 mmol/L (3.4-5.1); Sodium 128 mmol/L (137-145); Total Protein 7.6 g/dL (6.3-8.2)
[2021-10-04 07:00] LABS: Thyroid Stimulating Hormone < 0.015 uIU/mL (0.47-4.68)
[2021-10-04] MEDS: LORazepam 0.5 MG TABLET PO ×2 (07:23→19:43)
[2021-10-04] MEDS: ESTROGENS, CONJUGATED 0.625 MG TABLET 1.25 MG PO (08:47)
[2021-10-04] MEDS: SPIRONOLACTONE 25 MG TABLET PO (08:47)
[2021-10-04] MEDS: MAGNESIUM OXIDE 400 MG TABLET 800 MG PO (08:47)
[2021-10-04] MEDS: LOSARTAN 50 MG TABLET 100 MG PO (08:47)
[2021-10-04] MEDS: PANTOPRAZOLE DR 40 MG TABLET PO (08:47)
[2021-10-04] MEDS: BISACODYL 10 MG SUPP PR (08:47)
[2021-10-04] MEDS: DOCUSATE 100 MG CAPSULE PO (08:47)
[2021-10-04] MEDS: FUROSEMIDE 20 MG TABLET PO (08:47)
[2021-10-04] MEDS: BACLOFEN 10 MG TABLET PO ×3 (08:47→19:46)
[2021-10-04] MEDS: CHOLECALCIFEROL (VITAMIN D3) 5,000 UNIT TABLET 5000 UNIT PO (08:52)
[2021-10-04 09:21] VITALS: BP 152/98; PULSE 90; RESP 18; TEMP 36.8; O2SAT 97
[2021-10-04] MEDS: BUDESONIDE 0.5 MG/2 ML NEB INH (09:21)
[2021-10-04 09:24] VITALS: PULSE 76; RESP 20; O2SAT 98
[2021-10-04] MEDS: SODIUM CHLORIDE 0.9% FLUSH 10 ML IV ×2 (10:09→22:55)
[2021-10-04] MEDS: MAGNESIUM HYDROXIDE 30 ML UDC PO (10:10)
[2021-10-04 12:05] LABS: Free T3, Triiodothyronine Free 2.96 pg/mL (2.77-5.27); Free T4, Direct Thyroxine 1.41 ng/dL (0.78-2.19)
--- NOTE | 2021-10-04 12:31 | PC.NURSE ---
Addendum entered by Mechelle Aviles R.N. 10/04/21 18:20: U/A sent to lab, patient is more calm at this time. She was given sumatriptine for her complaints of a migrain, this seems to have helped her. She ate some at dinner and is resting in bed comfortably. Addendum entered by Mechelle Aviles R.N. 10/04/21 14:37: Patient is resting now, to get a urine and culture when she is able to void in the sterile hat that we put in the bathroom. Patient has calmed down and is more relaxed. She ate about 40% at lunch. Original Note: Assess- Patient is alert and oriented x3, she is anxious and gets worked up easily about things. She keeps repeating herself and talking about how she has not had a bowel movement for a week. Patient has had pruine juice, catalino, mom, and a suppository today. The suppository fell out of her rectum, she may not of waited long enough when it was put in. Patient keeps talking about her hernia's and how she has 3 small bowel obstructions. Nothing seems to make this patient happy, she complains alot and talks about odd things. Patient just needs somebody to listen to her and she is more calm and stable. Up to the bathroom several times to void. She is complaining of pain upon urination. Will ask Dr. Centeno if she would like a urine sent on patient.
--- NOTE | 2021-10-04 14:43 | CM.DPC ---
DCP Cont: Patient is on oral pain medications. She also was having some bowel issues and wanted a suppository. Mentioned possible option of pain clinic for patient, due to her medication history. Patient has been ambulatory in her room as well. P: DCP to continue to follow. Plan is for home when stable, and will need to follow up with primary care provider, Dr. Tristan. Surekha Dinh RN/[employer]
--- NOTE | 2021-10-04 15:07 | PM.PN.1 ---
Subjective Subjective Date Patient Seen: 10/04/21 Time Patient Seen: 15:08 Interval history: The patient is a 65-year-old female admitted to the hospital following rib fractures. She continues to have significant anxiety. Multiple complaints including anemia constipation and migraine headaches patient continues to drink a significant amount of fluid as she believes she was instructed to do so. Her pain appears to be better controlled today. Exam Vital Signs (past 8 hours): - 10/04/21 09:21 10/04/21 09:24 Temperature 98.2 F Pulse Rate 90 76 Respiratory Rate 18 20 Blood Pressure 152/98 H Pulse Oximetry 97 98 Oxygen Delivery Method Room Air Oxygen Flow Rate 0 Narrative Exam Narrative: Anxious female lying in bed Resp Other: Lungs decreased breath sounds with right basilar crackles Cardio Other: Cardiac exam: Regular rate and rhythm normal S1-S2 with a 2/6 systolic ejection murmur GI Other: Abdomen soft nontender mildly distended Extrem Other: Extremity no edema Psych Other: Anxious female Objective Labs Result Diagrams: 10/04/21 05:14 10/04/21 05:14 Labs: Laboratory Results - last 24 hr 09/30/21 10/04/21 10/04/21 18:59 05:14 05:14 WBC 7.3 RBC 3.68 L Hgb 10.8 L Hct 32.4 L MCV 88.2 MCH 29.3 MCHC 33.2 RDW 15.0 H Plt Count 438 H Neut % (Auto) 55.8 Lymph % (Auto) 29.7 [place] % (Auto) 8.8 Eos % (Auto) 4.9 H Baso % (Auto) 0.8 Neut # (Auto) 4100 Lymph # (Auto) 2200 [place] # (Auto) 600 Eos # (Auto) 400 Baso # (Auto) 100 Sodium 128 L Potassium 4.3 Chloride 94 L Carbon Dioxide 33 H BUN 21 H Creatinine 0.88 Estimated GFR > 60.0 BUN/Creatinine Ratio 23.9 H Glucose 96 Calcium 9.4 Iron 35 L TIBC 395 % Saturation 9 L Transferrin 329 Total Bilirubin 0.3 AST 27 ALT 13 Alkaline Phosphatase 70 Total Protein 7.6 Albumin 3.8 Globulin 3.8 Albumin/Globulin Ratio 1.0 TSH Free T4 Free T3 10/04/21 10/04/21 05:14 05:14 WBC RBC Hgb Hct MCV MCH MCHC RDW Plt Count Neut % (Auto) Lymph % (Auto) [place] % (Auto) Eos % (Auto) Baso % (Auto) Neut # (Auto) Lymph # (Auto) [place] # (Auto) Eos # (Auto) Baso # (Auto) Sodium Potassium Chloride Carbon Dioxide BUN Creatinine Estimated GFR BUN/Creatinine Ratio Glucose Calcium Iron TIBC % Saturation Transferrin Total Bilirubin AST ALT Alkaline Phosphatase Total Protein Albumin Globulin Albumin/Globulin Ratio TSH < 0.015 L Free T4 1.41 Free T3 2.96 PFSH Medical History Acute neck pain ADHD Allergies Anemia Ankle pain Anxiety Anxiety about health Anxiety and depression Benign familial tremor Bipolar 1 disorder Cervical somatic dysfunction Cervical spine disease (~2014) Cheilitis Chicken pox Chronic lumbar pain Chronic nausea Chronic neck pain Chronic right-sided low back pain without sciatica Cranial somatic dysfunction Depression Diverticular disease Dry skin Dysuria Ecchymoses, spontaneous Fibromyalgia Glaucoma Headache History of falling History of non anemic vitamin B12 deficiency Hyperlipidemia Hypertension Hyponatremia with decreased serum osmolality Iliotibial band syndrome, left leg Insomnia disorder, with non-sleep disorder mental comorbidity, episodic Insomnia secondary to depression with anxiety Irritable bowel syndrome Kidney disease Measles Migraine headache Orthostatic hypotension Osteoarthritis Pelvic somatic dysfunction Postnasal drip Recurrent sinusitis Recurrent sinusitis Requires assistance with activities of daily living (ADL) Resting tremor Rheumatoid arthritis Segmental and somatic dysfunction of abdomen and other regions Segmental and somatic dysfunction of lumbar region Segmental and somatic dysfunction of sacral region Segmental and somatic dysfunction of thoracic region Segmental dysfunction of rib cage Sinusitis, acute maxillary Somatic dysfunction of lower extremity Swallowing difficulty Urinary tract infection Vertigo Vision changes Vision disorder Surgical History Anesthesia H/O ventral hernia repair History of appendectomy History of arthroplasty of right knee (01/2019) History of bilateral salpingo-oophorectomy History of section History of cholecystectomy History of colonoscopy History of reduction mammoplasty History of spinal surgery (~2015) History of tonsillectomy History of total abdominal hysterectomy Family History Father History of heart disease Hypertension Hyperlipidemia Mother Diabetes mellitus History of heart disease Hyperlipidemia Hypertension Mental health problem Brother No problems noted. Brother Leukemia History of heart disease Diabetes mellitus Sister Kidney disease Alcoholic Mental health problem Grandfather History of heart disease Hypertension Grandmother Cancer Grandfather Hypertension History of heart disease Grandmother Low blood pressure Family/Other Mental health problem Social History household members: significant other Smoking Status: Current some day smoker alcohol intake: former Assessment & Plan Assessment & Plan narrative: This is a 65-year-old female with high anxiety, benzodiazepine dependency, fibromyalgia, rheumatoid arthritis, hypertension, hyperlipidemia and hypothyroidism who presents with several days of right-sided rib/chest wall pain from occult rib fractures that occurred during a fall that she cannot recall.? Her benzodiazepine screen is positive, indicating that she is using medications that are known to be high risk for falls in the geriatric age range which she is now in. Right Rib 5 -> 9 Fractures, present on admission. Active. -continue dilaudid and hydrocodone as needed.? -her complaint of abdominal pain is likely related to this with flaring after she went home Against Medical Advice from [facility] inpatient and tried to get by without IV pain medicines. -continue IV pain medication with plans to rotate to oral pain medication starting 10/02. -D/c IV pain medications today -patient is make Dinh slow but steady improvement, continue to taper oral pain medication Abdominal Pain, present on admission.? Active. -abdominal CT scan does not reveal any acute abdominal process.? This is likely referred pain from her rib fractures. -doubt pyelonephritis despite the CT scan as the white blood count is normal, urinalysis does not show any evidence for urinary infection and the pain is not in the expected locations.? -she indicates she has hernias.? These are not commented on in the report from the CT but she is apparently pending unclear hernia surgery at soon.? -no signs of bowel obstruction or other hernia complication on CT scan report -bisacodyl for bowels -Mag citrate for constipation Severe Anxiety, present on admission.? Active. -continue lorazepam IV as needed.? -benzodiazepines are contraindicated beginning at age 65 due to risks of recurrent falls causing fractures.? This appears to be an example of that risk. -will continue to suggest psychiatric consultation Benzodiazepine Dependency, present on admission.? Active. -this is likely a longstanding daily use habit. Hypertension, present on admission.? Chronic.? -continue losartan and spironolactone/potassium chloride Hyperlipidemia, present admission.? Chronic.? -continue simvastatin Hypothyroidism, present on admission.? Active. -TSH is suppressed at less than 0.015 -hold levothyroxine and adjust dose downward at discharge.? -agree with continuing to hold L-thyroxine Normocytic anemia, present admission.? Chronic.? -hemoglobin 9.7 Iron deficiency anemia, iron saturation is low at 9 as well as her% saturation Will start IV iron tonight, then for 200 mg x 1 Hyponatremia Likely multifactorial and most likely related to too much free water Will limit free water to 1200 cc per day Recheck sodium in the morning Time Spent With Patient Critical Care time: I spent a total of [] minutes of critical care time on this patient's care today; this time is exclusive of procedural time. Quality VTE Deep Vein Thrombosis/Pulmonary Embolism Present on Admission: Yes
[2021-10-04] MEDS: SUMAtriptan 25 MG TABLET 100 MG PO (15:18)
[2021-10-04] MEDS: MAGNESIUM CITRATE 300 ML SOLUTION 150 ML PO (15:40)
[2021-10-04] MEDS: IRON SUCROSE 200 MG in SODIUM CHLORIDE 0.9% 100 ML 220 ML IV (15:42)
[2021-10-04] MEDS: ATORVASTATIN 20 MG TABLET PO (19:46)
[2021-10-04 20:00] VITALS: BP 129/86; PULSE 85; RESP 19; TEMP 36.9; O2SAT 94
[2021-10-05] MEDS: OXYCODONE IR 5 MG TABLET PO ×2 (00:27→07:25)
[2021-10-05] MEDS: PROMETHAZINE 25 MG TABLET PO (00:31)
[2021-10-05] MEDS: HYDROCODONE/ACET 5/325 TABLET 1 TAB PO (01:11)
[2021-10-05] MEDS: LORazepam 0.5 MG TABLET PO ×2 (01:13→07:25)
[2021-10-05 02:31] VITALS: BP 147/80; PULSE 87; RESP 18; TEMP 36.8; O2SAT 95
[2021-10-05] MEDS: HYDROCODONE/ACET 5/325 TABLET 2 TAB PO (06:02)
[2021-10-05 06:06] LABS: BUN Creatinine Ratio 20.5 (6-22); Blood Urea Nitrogen 18 mg/dL (7-17); Calcium 9.5 mg/dL (8.4-10.2); Carbon Dioxide 34 mmol/L (22-32); Chloride 100 mmol/L (98-107); Estimated Glomerular Filt Rate > 60.0 mL/min (>60); Glucose 92 mg/dL (80-110); HEMOLYSIS < 15 (0-50); Potassium 4.2 mmol/L (3.4-5.1); Sodium 133 mmol/L (137-145)
[2021-10-05] MEDS: ONDANSETRON 4 MG/2 ML INJ IV (06:06)
[2021-10-05] MEDS: SUMAtriptan 25 MG TABLET 100 MG PO (07:45)
--- NOTE | 2021-10-05 08:06 | PM.DS.1 ---
History of Present Illness History of Present Illness Date Patient Seen: 10/05/21 Time Patient Seen: 08:06 Chief complaint: [facility], not doing well Narrative: This is a 65-year-old female with a long list of current medical conditions including anemia, anxiety, benzodiazepine dependency, recent right-sided rib fractures, essential tremor, bipolar disorder, chronic neck pain, fibromyalgia, hypertension, hyperlipidemia and rheumatoid arthritis who now presents with severe right-sided abdominal pain and related right lower flank rib fracture pain.? She is unaware of how she fell and broke her ribs.? She gives different answers as to how long ago she was found to have these broken ribs but sometime in the last week she was taken to the hospital in [place] and was hospitalized there for at least 3 days until she left against medical advice because ?they were not doing anything for me. ?? She is unable to describe what she wanted done that they were not doing and is unable to articulate her reasons for going home.? She tells me various time frames for how long she has been home but it has been between 1 and 3 days.? She finally contacted Dr. Tristan who recommended that she come to the ED. Her urine drug screen here is positive for THC and benzodiazepines.? She mentions several times that she is pending abdominal hernia surgery at [facility] at the end of October.? She is very tangential and wonders off topic very quickly.? She has a significant anxiety overlay to any discussion of her physical symptoms.? Her abdominal CT scan does not show any obvious source of her abdominal pain complaint other than the multiple rib fractures.? Fractures are seen at the right 5th, 6th, 7th, 8th and 9th ribs.? There is a moderate size right pleural effusion.? There is abnormal enhancement in both kidneys suggesting possible bilateral pyelonephritis. Discharge Providers Provider Date of admission: 10/02/21 10:44 Discharge Date: 10/05/21 Primary care physician: Judah Tristan DO Consults: 10/02/21 12:12 Consult to Physical Therapy Evaluate & Treat Comment: Physician Instructions: Evaluate and Treat Discharge provider: Amarilys Centeno MD Summary Hospital Course Discharge Diagnosis: 1. Multiple rib fractures 2. Severe anxiety 3. Benzodiazepine dependence 4. Hypertension 5. Hyperlipidemia 6. Hypothyroidism 7. Iron deficiency anemia 8. Hyponatremia 9. Low TSH, likely related to thyroid hormone replacement, will hold her thyroid hormone and have her resume as an outpatient Hospital Course: Patient was admitted to the hospital for severe pain associated with rib fractures. She was quite anxious throughout her hospital stay. Patient had multiple complaints regarding the care she received here. She was quite tearful and it was very difficult to engage with her. Despite this her pain was better controlled. She did develop some hyponatremia with a serum sodium of 128. She was given a fluid restriction with improvement of her sodium. Her iron studies were obtained and she was found to be iron deficient. Patient did receive some IV iron during her hospital stay. She did tolerate oral pain medications fairly well. She essentially demanded to leave the hospital and arrangements were made for her to be discharged home. She will follow-up with her primary care provider Dr. Tristan for further evaluation as an outpatient. Status at Discharge Cognitive/behavioral status at discharge: oriented and agitated Functional status at discharge: independent ambulation Overall status at discharge: patient is progressing back to baseline Exam Vital Signs (past 8 hours): - 10/05/21 02:31 Temperature 98.2 F Pulse Rate 87 Respiratory Rate 18 Blood Pressure 147/80 H Pulse Oximetry 95 Oxygen Delivery Method Room Air Oxygen Flow Rate 0 Narrative Exam Narrative: Anxious tearful female Resp Other: Lungs decreased breath sounds, with occasional crackles at the right base Cardio Other: Cardiac exam: Regular rate and rhythm normal S1-S2 GI Other: Abdomen: Soft mildly tender Extrem Other: Extremity no edema Objective Labs Result Diagrams: 10/04/21 05:14 10/05/21 05:48 Labs: Laboratory Results - last 24 hr 10/04/21 10/05/21 05:14 05:48 Sodium 133 L Potassium 4.2 Chloride 100 Carbon Dioxide 34 H BUN 18 H Creatinine 0.88 Estimated GFR > 60.0 BUN/Creatinine Ratio 20.5 Glucose 92 Calcium 9.5 Free T4 1.41 Free T3 2.96 [facility] Medical History Acute neck pain ADHD Allergies Anemia Ankle pain Anxiety Anxiety about health Anxiety and depression Benign familial tremor Bipolar 1 disorder Cervical somatic dysfunction Cervical spine disease (~2014) Cheilitis Chicken pox Chronic lumbar pain Chronic nausea Chronic neck pain Chronic right-sided low back pain without sciatica Cranial somatic dysfunction Depression Diverticular disease Dry skin Dysuria Ecchymoses, spontaneous Fibromyalgia Glaucoma Headache History of falling History of non anemic vitamin B12 deficiency Hyperlipidemia Hypertension Hyponatremia with decreased serum osmolality Iliotibial band syndrome, left leg Insomnia disorder, with non-sleep disorder mental comorbidity, episodic Insomnia secondary to depression with anxiety Irritable bowel syndrome Kidney disease Measles Migraine headache Orthostatic hypotension Osteoarthritis Pelvic somatic dysfunction Postnasal drip Recurrent sinusitis Recurrent sinusitis Requires assistance with activities of daily living (ADL) Resting tremor Rheumatoid arthritis Segmental and somatic dysfunction of abdomen and other regions Segmental and somatic dysfunction of lumbar region Segmental and somatic dysfunction of sacral region Segmental and somatic dysfunction of thoracic region Segmental dysfunction of rib cage Sinusitis, acute maxillary Somatic dysfunction of lower extremity Swallowing difficulty Urinary tract infection Vertigo Vision changes Vision disorder Surgical History Anesthesia H/O ventral hernia repair History of appendectomy History of arthroplasty of right knee (01/2019) History of bilateral salpingo-oophorectomy History of section History of cholecystectomy History of colonoscopy History of reduction mammoplasty History of spinal surgery (~2015) History of tonsillectomy History of total abdominal hysterectomy Family History Father History of heart disease Hypertension Hyperlipidemia Mother Diabetes mellitus History of heart disease Hyperlipidemia Hypertension Mental health problem Brother No problems noted. Brother Leukemia History of heart disease Diabetes mellitus Sister Kidney disease Alcoholic Mental health problem Grandfather History of heart disease Hypertension Grandmother Cancer Grandfather Hypertension History of heart disease Grandmother Low blood pressure Family/Other Mental health problem Social History household members: significant other Smoking Status: Current some day smoker alcohol intake: former Discharge Assessment & Plan Assessment and Plan Assessment: 1. Multiple rib fractures 2. Severe anxiety 3. Benzodiazepine dependence 4. Hypertension 5. Hyperlipidemia 6. Hypothyroidism 7. Iron deficiency anemia 8. Hyponatremia Plan of Treatment: Discharge home Follow-up with Dr. Perkins in 1 week Discharge Plan Discharge Plan Patient Disposition: Home Discharge orders & Medications Prescriptions: New hydrocodone-acetaminophen 5-325 mg Tablet 1 tab PO Q4HR PRN (Reason: Pain, Moderate (4-6)) Qty: 20 0RF potassium chloride 10 mEq Tablet Extended Release 10 meq PO MoWeFr@0900 Qty: 30 0RF magnesium oxide 400 mg (241.3 mg magnesium) Tablet 800 mg PO DAILY Qty: 30 0RF Continued cholecalciferol (vitamin D3) 10,000 UNIT tablet 5,000 iu PO QDAY Qty: 0 0RF cetirizine [Zyrtec] 10 mg tablet 10 mg PO DAILY Qty: 90 0RF simvastatin 40 mg tablet 40 mg PO BEDTIME Qty: 90 1RF losartan 100 mg tablet 100 mg PO DAILY Qty: 90 1RF Premarin 1.25 mg tablet 1.25 mg PO DAILY Qty: 90 1RF spironolactone 25 mg tablet 25 mg PO DAILY Qty: 90 1RF albuterol sulfate [ProAir HFA] 90 mcg/actuation HFA aerosol inhaler 2 puff INHALATION Q4-6H PRN (Reason: wheezing) Qty: 6.7 3RF promethazine 25 mg tablet See Rx Instructions .ROUTE .COMPLEX Qty: 90 0RF Dose Instruction: Take 1 tablet (25 mg) by mouth four times daily As Needed for nausea and vomiting Rx Instructions: Take 1 tablet (25 mg) by mouth four times daily As Needed for nausea and vomiting lorazepam 0.5 mg tablet See Rx Instructions .ROUTE .COMPLEX Qty: 90 0RF Rx Instructions: Take 1 tablet by mouth 3 times daily as needed for anxiety fluticasone propionate 50 mcg/actuation spray,suspension 1 spray intranasal BID PRN (Reason: allergy symptoms) Qty: 15.8 3RF triamcinolone acetonide 0.1 % ointment 1 applic TOP DAILY Qty: 80 1RF sumatriptan succinate 100 mg tablet 100 mg PO DAILY MDD 2 tabs daily PRN (Reason: Migraines) Qty: 36 3RF pantoprazole 40 mg tablet,delayed release (DR/EC) 40 mg PO DAILY Qty: 90 1RF Linzess 145 mcg capsule 145 mcg PO DAILY Qty: 90 1RF fluticasone furoate 50 mcg/actuation blister with device 1 inh inhalation DAILY Qty: 30 5RF oxycodone 5 mg tablet 5 mg PO TID PRN (Reason: pain) Qty: 90 0RF acetaminophen 500 mg Capsule 1,000 mg PO Q6H PRN (Reason: Pain) 0RF atomoxetine 40 mg capsule 40 mg PO DAILY 0RF baclofen 10 mg tablet 10 mg PO TID 0RF furosemide 20 mg tablet 20 mg PO DAILY 0RF Discontinued levothyroxine [Synthroid] 125 mcg tablet 125 mcg PO QDAY Qty: 90 1RF diphenhydramine HCl 25 mg capsule 50 mg PO QPM 0RF No Action (DME) Handicap Parking Permit See Rx Instructions .Route .MEDSUPPLY Qty: 1 0RF Rx Instructions: As directed Follow up/Referrals: Judah Tristan DO [Primary Care Provider] - Discharge Health Status Multidrug resistant organism: No MDRO Diet/Activity/Treatments Diet: Low-sodium Visit Report/Discharge Packet Instructions: DI for Prescription Opioid Use Discharge Data Primary Care Provider: Judah Tristan Quality VTE Deep Vein Thrombosis/Pulmonary Embolism Present on Admission: Yes
[2021-10-05] MEDS: PANTOPRAZOLE DR 40 MG TABLET PO (08:30)
[2021-10-05 08:43] LABS: Magnesium 2.6 mg/dL (1.6-2.3)
--- NOTE | 2021-10-05 08:56 | PC.NURSE ---
Addendum entered by Aleisha Perera R.N. 10/05/21 10:15: late note: Pt received ativan and oxy for pain. pt was ready to leave the hospital at 0730. explained to her why she needs to be on fluid restriction and how much she can have, but she constantly forgets. Explained to her that her she needs to hold her thyroid med. pt was upset and she will continue to take thyroid med. Original Note: offered to give morning meds, pt got upset again. she said she will deal with it at home.
[2021-10-05 11:37] LABS: Osmolality, Serum 278 mOsmol/kg (280-301)
--- NOTE | 2021-10-05 12:33 | CM.DPC ---
DCP Cont: Patient has discharge orders today, she is wanting to leave. Dr. Centeno indicated that she is discharging her home. Stephanie from [facility] had called and left a message as to the status patient, for she is on their services. Was able to call her back and give her an update that patient is discharging home today. Let her know that resumption order will be sent, and DC Summary. Confirmed with Stephanie that patient is currently getting RN and P.T. services. P: Patient is going home and resuming [facility]. Faxing over DC summary and resumption orders. Surekha Dinh RN/Bus Matron
== END 2021-10-05 09:45 | disposition home health service (06) | DRG 184 ==
LOC: ED 18:55 → AC 10-01 00:42
PROVIDERS: Internal Medicine; Admitting Provider Family Medicine; Emergency Provider Emergency Medicine; Family Provider Family Medicine; PCP Family Medicine; Referring Provider Emergency Medicine; Visit Provider Family Medicine
DX: S22.41XA Multiple fractures of ribs, right side, initial encounter for closed fracture (principal); R41.82 Altered mental status, unspecified; F13.20 Sedative, hypnotic or anxiolytic dependence, uncomplicated; E87.1 Hypo-osmolality and hyponatremia; J90 Pleural effusion, not elsewhere classified; F41.9 Anxiety disorder, unspecified; D50.9 Iron deficiency anemia, unspecified; F17.200 Nicotine dependence, unspecified, uncomplicated; I10 Essential (primary) hypertension; E78.5 Hyperlipidemia, unspecified; K59.00 Constipation, unspecified; G43.909 Migraine, unspecified, not intractable, without status migrainosus; R29.6 Repeated falls; K21.9 Gastro-esophageal reflux disease without esophagitis; G89.29 Other chronic pain; M54.2 Cervicalgia; W19.XXXA Unspecified fall, initial encounter; Z20.822 Contact with and (suspected) exposure to COVID-19
CPT/HCPCS: 36415; 70450; 71260; 74177; 80048; 80053; 80305; 80320; 80329; 81001; 82140; 83540; 83550; 83605; 83735; 83930; 84146; 84439; 84443; 84481; 85025; 87040; 87086; 87635; 93005; 94640; 94760; 96361; 96374; 96375; 97162; 99284; C9803; G0378; G0480; J1170; J1756; J2405; Q9967

== ENCOUNTER → 2021-10-31 09:57 | Outpatient (CLI) | payer MEDICARE, SELFPAY ==
[2021-10-01 00:03] VITALS: BMI 22.4
[2021-10-31 12:40] LABS: COVID-19 CEPHEID PCR (VTM/NP) Negative (Negative)
== END ==
PROVIDERS: Family Provider Family Medicine; PCP Family Medicine; Visit Provider Nurse Practitioner Family
DX: Z20.822 Contact with and (suspected) exposure to COVID-19 (principal)
CPT/HCPCS: C9803; U0003; U0005

== ENCOUNTER 2022-02-22 10:15 | Emergency (ER) | payer MEDICARE, MEDICAID, SELFPAY ==
[2021-11-10 13:44] VITALS: BMI 22.4
[2022-02-22] VITALS (45 sets, daily range): BP systolic 98–137; BP diastolic 55–83; PULSE 77–140; RESP 16–47; TEMP 36.9; O2SAT 92–100
--- NOTE | 2022-02-22 10:20 | DI.RAD.S_ITS ---
PROCEDURE: XR CHEST 1V INDICATIONS: trauma TECHNIQUE: One view of the chest was acquired. COMPARISON: [facility], CR, XR CHEST 1V, 02/03/2021, 10:44. [facility], CR, XR CHEST 1 VIEW, 01/29/2022, 10:54. FINDINGS: Surgical changes and devices: None. Lungs and pleura: Lungs are clear. No pleural effusions or pneumothorax. Mediastinum: Mediastinal contours appear normal. Heart size is normal. Bones and chest wall: Healing right rib fractures as seen on prior studies. No new acute fracture identified. IMPRESSION: No acute finding Dictated by: Hai Ling M.D. on 02/22/2022 at 10:35 Approved by: Hai Ling M.D. on 02/22/2022 at 10:36
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
--- NOTE | 2022-02-22 10:29 | DI.RAD.S_ITS ---
PROCEDURE: XR KNEE RT 1TO2V INDICATIONS: pain TECHNIQUE: 2 view(s) of the knee acquired. COMPARISON: None. FINDINGS: Bones: Patient is status post knee joint arthroplasty. Hardware components are in expected positions. Visualized bony structures are intact. Soft tissues: No soft tissue abnormality. IMPRESSION: Postoperative changes of total knee replacement of the right knee without radiographic complication. Dictated by: Mynor Lal M.D. on 02/22/2022 at 11:18 Approved by: Mynor Lal M.D. on 02/22/2022 at 11:19
[2022-02-22 10:32] LABS: Add Manual Diff / Slide Review NO; Basophils Absolute Auto 100 /uL (0-100); Basophils Percent Auto 0.8 % (0-2); Eosinophils Absolute Auto 300 /uL (0-450); Eosinophils Percent Auto 3.3 % (2-4); Hematocrit 31.9 % (36-46); Hemoglobin 10.3 g/dL (12.0-16.0); Lymphocytes Absolute Auto 1500 /uL (1100-4500); Lymphocytes Percent Auto 17.4 % (25-40); Mean Corpuscular HGB Conc 32.4 % (30-36); Mean Corpuscular Hemoglobin 29.1 PG (26-34); Mean Corpuscular Volume 89.8 fL (80-100); Monocytes Absolute Auto 500 /uL (0-900); Monocytes Percent Auto 5.8 % (3-14); Neutrophils Absolute Auto 6100 /uL (1500-7000); Neutrophils Percent Auto 72.7 % (50-75); Platelet Count 432 X10^3/uL (150-400); Red Blood Cell Count 3.55 X10^6/uL (4.0-5.2); Red Cell Distribution Width 14.3 % (11.6-14.8); White Blood Cell Count 8.4 X10^3/uL (4.5-11.0)
[2022-02-22] MEDS: methylPREDNISolone 125 MG/2 ML VIAL IV (10:37)
[2022-02-22] MEDS: diphenhydrAMINE 50 MG/ML VIAL 25 MG IV (10:37)
[2022-02-22 10:49] LABS: Ethanol (ETOH) < 10 mg/dL
[2022-02-22 10:50] LABS: Alanine Aminotransferase 23 IU/L (<35); Albumin 4.2 g/dL (3.5-5.0); Albumin Globulin Ratio 1.3 (1.0-2.8); Alkaline Phosphatase 73 U/L (38-126); Aspartate Aminotransferase 35 IU/L (14-36); BUN Creatinine Ratio 31.6 (6-22); Bilirubin Total 0.2 mg/dL (0.2-1.3); Blood Urea Nitrogen 43 mg/dL (7-17); Calcium 9.8 mg/dL (8.4-10.2); Carbon Dioxide 24 mmol/L (22-32); Chloride 103 mmol/L (98-107); Creatine Kinase 61 U/L (30-135); Estimated Glomerular Filt Rate 43 mL/min (>60); Globulin 3.3 g/dL (1.7-4.1); Glucose 132 mg/dL (80-110); HEMOLYSIS < 15 (0-50); Lipase 212 U/L (23-300); Potassium 3.9 mmol/L (3.4-5.1); Sodium 134 mmol/L (137-145); Total Protein 7.5 g/dL (6.3-8.2)
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
[2022-02-22 11:00] LABS: Troponin I < 0.012 ng/mL (0.01-0.034)
[2022-02-22] MEDS: diazePAM 10 MG/2 ML SYRINGE 2 MG IV (11:09)
[2022-02-22] MEDS: SODIUM CHLORIDE 0.9% 1,000 ML 1000 ML IV (11:39)
[2022-02-22] MEDS: TET,DIPH,PERTUSS(ACELL),VAC/PF 0.5 ML SYRINGE IM (12:15)
== END 2022-02-22 13:51 | disposition home or self-care (01) ==
PROVIDERS: Emergency Provider Emergency Medicine; Family Provider Family Medicine; PCP Family Medicine
DX: S09.90XA Unspecified injury of head, initial encounter (principal); V89.2XXA Person injured in unspecified motor-vehicle accident, traffic, initial encounter; Z23 Encounter for immunization; I10 Essential (primary) hypertension
CPT/HCPCS: 36415; 70450; 71045; 71260; 72125; 72170; 73560; 74177; 80053; 80320; 82550; 83690; 84484; 85025; 90471; 93005; 93010; 96361; 96374; 96375; 99285; 90715; J1200; J2930; J3360

== ENCOUNTER → 2022-09-25 08:33 | Outpatient (CLI) | payer MEDICARE, MEDICAID, SELFPAY ==
[2021-11-10 13:44] VITALS: BMI 22.4
[2022-09-25 09:51] LABS: Add Manual Diff / Slide Review NO; Basophils Absolute Auto 100 /uL (0-100); Basophils Percent Auto 0.9 % (0-2); Eosinophils Absolute Auto 400 /uL (0-450); Eosinophils Percent Auto 4.5 % (2-4); Hemoglobin 9.8 g/dL (12.0-16.0); Lymphocytes Absolute Auto 2400 /uL (1100-4500); Lymphocytes Percent Auto 26.3 % (25-40); Mean Corpuscular HGB Conc 32.8 % (30-36); Mean Corpuscular Hemoglobin 28.1 PG (26-34); Mean Corpuscular Volume 85.6 fL (80-100); Monocytes Absolute Auto 700 /uL (0-900); Monocytes Percent Auto 7.4 % (3-14); Neutrophils Absolute Auto 5500 /uL (1500-7000); Neutrophils Percent Auto 60.9 % (50-75); Platelet Count 414 X10^3/uL (150-400); Red Cell Distribution Width 18.5 % (11.6-14.8); White Blood Cell Count 9.1 X10^3/uL (4.5-11.0)
[2022-09-25 10:41] LABS: Alanine Aminotransferase 16 IU/L (<35); Albumin Globulin Ratio 1.1 (1.0-2.8); Alkaline Phosphatase 75 U/L (38-126); Aspartate Aminotransferase 23 IU/L (14-36); BUN Creatinine Ratio 39.7 (6-22); Bilirubin Total 0.1 mg/dL (0.2-1.3); Blood Urea Nitrogen 52 mg/dL (7-17); Calcium 8.9 mg/dL (8.4-10.2); Carbon Dioxide 25 mmol/L (22-32); Chloride 97 mmol/L (98-107); Cholesterol 229 mg/dL (140-199); Estimated Glomerular Filt Rate 45 mL/min (>60); Globulin 3.7 g/dL (1.7-4.1); Glucose 81 mg/dL (80-110); HDL Cholesterol 71 mg/dL (40-60); HEMOLYSIS < 15 (0-50); LDL Cholesterol Calculated 114 mg/dL (<100); Potassium 4.9 mmol/L (3.4-5.1); Sodium 133 mmol/L (137-145); Total Protein 7.7 g/dL (6.3-8.2); Triglycerides 221 mg/dL (35-150)
[2022-09-25 10:46] LABS: Iron 48 ug/dL (37-170)
[2022-09-25 11:04] LABS: Free T3, Triiodothyronine Free 3.06 pg/mL (2.77-5.27); Free T4, Direct Thyroxine 1.47 ng/dL (0.78-2.19)
[2022-09-25 11:17] LABS: Thyroid Stimulating Hormone 0.153 uIU/mL (0.47-4.68)
[2022-09-25 11:23] LABS: Vitamin B12 655 pg/mL (239-931)
== END ==
PROVIDERS: Family Provider Family Medicine; PCP Family Medicine; Referring Provider Family Medicine; Visit Provider Family Medicine
DX: E03.9 Hypothyroidism, unspecified (principal); E87.1 Hypo-osmolality and hyponatremia; Z86.39 Personal history of other endocrine, nutritional and metabolic disease; E78.5 Hyperlipidemia, unspecified; I10 Essential (primary) hypertension; Q61.3 Polycystic kidney, unspecified; D50.9 Iron deficiency anemia, unspecified; F51.05 Insomnia due to other mental disorder
CPT/HCPCS: 36415; 80053; 80061; 82607; 83540; 83735; 84439; 84443; 84481; 85025

== ENCOUNTER → 2023-04-13 15:04 | Outpatient (CLI) | payer MEDICARE, MEDICAID, SELFPAY ==
[2021-11-10 13:44] VITALS: BMI 22.4
[2023-04-13 15:26] LABS: Add Manual Diff / Slide Review NO; Basophils Absolute Auto 100 /uL (0-100); Basophils Percent Auto 0.7 % (0-2); Eosinophils Absolute Auto 200 /uL (0-450); Eosinophils Percent Auto 3.1 % (2-4); Hematocrit 33.7 % (36-46); Lymphocytes Absolute Auto 1800 /uL (1100-4500); Lymphocytes Percent Auto 25.1 % (25-40); Mean Corpuscular HGB Conc 32.8 % (30-36); Mean Corpuscular Hemoglobin 29.1 PG (26-34); Mean Corpuscular Volume 88.9 fL (80-100); Monocytes Absolute Auto 1000 /uL (0-900); Neutrophils Absolute Auto 4100 /uL (1500-7000); Neutrophils Percent Auto 57.1 % (50-75); Platelet Count 280 X10^3/uL (150-400); Red Blood Cell Count 3.79 X10^6/uL (4.0-5.2); Red Cell Distribution Width 15.6 % (11.6-14.8); White Blood Cell Count 7.2 X10^3/uL (4.5-11.0)
[2023-04-13 15:54] LABS: Alanine Aminotransferase 24 IU/L (<35); Albumin Globulin Ratio 1.1 (1.0-2.8); Alkaline Phosphatase 73 U/L (38-126); Aspartate Aminotransferase 34 IU/L (14-36); BUN Creatinine Ratio 28.8 (6-22); Bilirubin Total 0.3 mg/dL (0.2-1.3); Blood Urea Nitrogen 34 mg/dL (7-17); Calcium 10.3 mg/dL (8.4-10.2); Carbon Dioxide 27 mmol/L (22-32); Chloride 105 mmol/L (98-107); Estimated Glomerular Filt Rate 51 mL/min (>60); Globulin 3.6 g/dL (1.7-4.1); Glucose 97 mg/dL (80-110); HEMOLYSIS < 15 (0-50); Potassium 4.2 mmol/L (3.4-5.1); Sodium 138 mmol/L (137-145); Total Protein 7.6 g/dL (6.3-8.2)
[2023-04-13 16:20] LABS: TSH w/ Reflex to FT4 < 0.02 uIU/mL (0.47-4.68)
== END ==
PROVIDERS: Family Provider Family Medicine; PCP Family Medicine; Referring Provider Family Medicine; Visit Provider Family Medicine
DX: D64.9 Anemia, unspecified (principal); E03.9 Hypothyroidism, unspecified; E78.5 Hyperlipidemia, unspecified; I10 Essential (primary) hypertension; I50.20 Unspecified systolic (congestive) heart failure
CPT/HCPCS: 36415; 80053; 84439; 84443; 85025

== ENCOUNTER 2023-04-13 16:11 | Emergency (ER) | payer MEDICARE, MEDICAID, SELFPAY ==
[2021-11-10 13:44] VITALS: BMI 22.4
[2023-04-13] VITALS (13 sets, daily range): BP systolic 99–132; BP diastolic 51–78; PULSE 73–97; RESP 14–26; TEMP 37.2; O2SAT 93–99; BMI 21.5
--- NOTE | 2023-04-13 16:42 | DI.RAD.S_ITS ---
PROCEDURE: XR CHEST 1V INDICATIONS: chest pain TECHNIQUE: One view of the chest was acquired. COMPARISON: [facility], CR, XR CHEST 1V, 02/22/2022, 10:08. FINDINGS: Surgical changes and devices: None. Lungs and pleura: Lungs are clear. No pleural effusions or pneumothorax. Mediastinum: Mediastinal contours appear normal. Heart size is normal. Bones and chest wall: No suspicious bony lesions. Healed fractures of the right lower ribs. Overlying soft tissues appear unremarkable. IMPRESSION: No acute cardiopulmonary abnormality. Dictated by: Mynor Lal M.D. on 04/13/2023 at 18:02 Approved by: Mynor Lal M.D. on 04/13/2023 at 18:02
[2023-04-13 17:22] LABS: Add Manual Diff / Slide Review NO; Basophils Absolute Auto 100 /uL (0-100); Eosinophils Absolute Auto 200 /uL (0-450); Eosinophils Percent Auto 3.3 % (2-4); Hematocrit 32.9 % (36-46); Hemoglobin 10.9 g/dL (12.0-16.0); Lymphocytes Absolute Auto 1400 /uL (1100-4500); Lymphocytes Percent Auto 19.3 % (25-40); Mean Corpuscular HGB Conc 33.1 % (30-36); Mean Corpuscular Hemoglobin 29.3 PG (26-34); Mean Corpuscular Volume 88.5 fL (80-100); Monocytes Absolute Auto 900 /uL (0-900); Monocytes Percent Auto 12.1 % (3-14); Neutrophils Absolute Auto 4600 /uL (1500-7000); Neutrophils Percent Auto 64.3 % (50-75); Platelet Count 291 X10^3/uL (150-400); Red Blood Cell Count 3.71 X10^6/uL (4.0-5.2); Red Cell Distribution Width 15.8 % (11.6-14.8); White Blood Cell Count 7.1 X10^3/uL (4.5-11.0)
[2023-04-13 17:30] LABS: PTT Partial Thromboplastin Tim 29 SECONDS (26-36)
--- NOTE | 2023-04-13 18:20 | PC.NURSE ---
when drawing patient and starting IV earlier patient was only rousable with physical stimulation. patient then ramble on incoherently. patient was unable to answer why she is here today. patient did mention she was upset that no one has done a urinalysis on her. i asked pt to let us know when she needs to use the bathroom as we do want a sample from her today. patient then left with Xray and sent back out to waiting room. patient was called for lab draw and not found in waiting room. asked security to check building and ask patient if she wanted her IV out prior to leaving. security reports that patient agreed to come back to have IV removed. this nurse went into waiting room to take patient's IV out. asked patient if she would like it removed, she said if i am going to have to wait longer then i want it out then started crying that we didnt even want to do a urinalysis on her. I explained to patient that I had asked her earlier to let us know if she needed to pee because we did need a sample. and i can't give her a wait time, as we have a full house. pt said she would give us one now and she was in pain due to having to pee so bad. patient brought back to bathroom and placed in room 3.
[2023-04-13 18:48] LABS: UR Morphine/Opiate cutoff 300 Negative (Negative); Ur Creatinine Normal (Normal); Ur Specific Gravity Normal (Normal); Urine Amphetamines Negative (Negative); Urine Cocaine Negative (Negative); Urine Methamphetamines Negative (Negative); Urine Tetrahydrocannabinol Positive (Negative); Urine pH Normal (Normal)
[2023-04-13 18:49] LABS: Urine Barbiturates Negative (Negative); Urine Benzodiazepines Positive (Negative); Urine MDMA Negative (Negative); Urine Methadone Negative (Negative); Urine Oxycodone Negative (Negative); Urine Phencyclidine Negative (Negative); Urine Tricyclic Antidepressant Positive (Negative)
[2023-04-13 18:54] LABS: Bacteria Urine Many (>30); Culture Indicated Urine Specimen Cultured; RBC Urine 1-5/HPF (0-5/HPF); Squamous Epithelial Cell Urine 5-10 /HPF (0-5/HPF); WBC Urine 10-30/HPF (0-5/HPF)
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
[2023-04-13 19:10] LABS: Ethanol (ETOH) < 10 mg/dL
[2023-04-13 19:12] LABS: Alanine Aminotransferase 23 IU/L (<35); Albumin 3.7 g/dL (3.5-5.0); Alkaline Phosphatase 70 U/L (38-126); Aspartate Aminotransferase 31 IU/L (14-36); BUN Creatinine Ratio 28.1 (6-22); Bilirubin Total 0.4 mg/dL (0.2-1.3); Blood Urea Nitrogen 34 mg/dL (7-17); Calcium 9.6 mg/dL (8.4-10.2); Carbon Dioxide 26 mmol/L (22-32); Chloride 103 mmol/L (98-107); Creatine Kinase 86 U/L (30-135); Estimated Glomerular Filt Rate 49 mL/min (>60); Globulin 3.7 g/dL (1.7-4.1); Glucose 77 mg/dL (80-110); HEMOLYSIS < 15 (0-50); Lipase 291 U/L (23-300); Magnesium 1.9 mg/dL (1.6-2.3); Potassium 3.9 mmol/L (3.4-5.1); Sodium 135 mmol/L (137-145); Total Protein 7.4 g/dL (6.3-8.2)
[2023-04-13 19:23] LABS: Troponin I < 0.012 ng/mL (0.01-0.034)
--- NOTE | 2023-04-13 20:00 | PC.NURSE ---
Pt continues to fall asleep easily and have slurred speech when awake. I went to check on pt and found her to have open bottles of medication in front of her. Metoprolol 25 mg IR. Filled 03/15 #180, 9 left in bottle. Lorazapam 2 mg tablets: Filled 04/10: instructions for 2 mg po tid prn. #74 left. Pt states she was going to take her regular dose but fell asleep first. These medications secured. Dr. Maki aware. Pt continues to deny SI/HI but falls asleep easily, readily awakens with any stimulation. Easy work of breathing.
--- NOTE | 2023-04-13 20:53 | ED_ITS ---
HPI - Chest Pain General Chief Complaint: Chest Pain Stated Complaint: Pain Time Seen by Provider: 04/13/23 19:41 Source: patient Mode of arrival: Wheelchair History of Present Illness HPI narrative: Patient is a 67-year-old female. It is very difficult to obtain in HPI review of systems from. She states she is here because she is had quite a long time of chest discomfort and arm discomfort and neck discomfort. She stated that she haas d an appointment with her primary doctor today but was late for her appointment because of traffic. States she was not seen because she was late. Apparently there was some blood work ordered for her. States she went to get the blood work done. She stated that she was told to come to the emergency department. I am unsure as to who told her to go to the ER. Apparently she was recently at an outside facility where she had quite an extensive workup for chest discomfort. These notes were available for review. Patient states that she does not trust this other facility. It is very difficult to obtain any further HPI review of systems from her. Related Data Home Medications Medication Instructions Recorded Confirmed baclofen 10 mg tablet 10 mg PO TID PRN muscle spasms 04/13/23 04/13/23 Previous Rx's Medication Instructions Recorded Handicap Parking Permit #1 ea 09/08/21 magnesium oxide 400 mg (241.3 mg 800 mg PO DAILY #30 tabs 10/05/21 magnesium) tablet naloxone 4 mg/actuation nasal 4 mg intranasal Q3M PRN opioid 10/18/21 spray (Narcan) overdose #1 ea sumatriptan succinate 100 mg tablet 100 mg PO DAILY PRN Migraines #36 09/27/22 tabs fluticasone propionate 50 1 spray intranasal BID PRN allergy 10/10/22 mcg/actuation nasal symptoms #15.8 mL spray,suspension aspirin 81 mg tablet,delayed 81 mg PO DAILY #90 tabs 11/13/22 release eszopiclone 1 mg tablet See Rx Instructions .Route 11/20/22 .COMPLEX #90 tabs simvastatin 40 mg tablet 40 mg PO BEDTIME #90 tabs 11/20/22 diclofenac sodium 3 % topical gel 1 applic topical BID pain #100 01/03/23 grams furosemide 40 mg tablet 40 mg PO BID #180 tabs 01/03/23 levothyroxine 125 mcg tablet 125 mcg PO DAILY #90 tabs 01/03/23 lorazepam 2 mg tablet 2 mg PO TID PRN anxiety #90 tabs 01/03/23 triamcinolone acetonide 0.1 % See Rx Instructions .Route 01/26/23 topical ointment .COMPLEX #80 grams spironolactone 25 mg tablet See Rx Instructions .Route 02/02/23 .COMPLEX #90 tabs estradiol 0.01% (0.1 mg/gram) 1 appful vaginal DAILY #42.5 grams 02/22/23 vaginal cream (Estrace) metoprolol tartrate 25 mg tablet 25 mg PO BID #180 tabs 02/22/23 promethazine 25 mg tablet See Rx Instructions .Route 03/13/23 .COMPLEX #90 tabs albuterol sulfate 90 mcg/actuation 2 puff inhalation Q6H PRN 03/14/23 aerosol inhaler (ProAir HFA) shortness of breath or wheezing #6.7 grams diclofenac sodium 1 % topical gel 2 g topical QID pain #100 grams 03/14/23 pantoprazole 20 mg tablet,delayed 20 mg PO BID #180 tabs 03/14/23 release (Protonix) potassium chloride 10 mEq 10 meq PO MoWeFr@0900 #90 tabs 03/15/23 tablet,extended release Allergies Allergy/AdvReac Type Severity Reaction Status Date / Time adhesive [ADHESIVE] Allergy Severe RASH Verified 04/13/23 16:34 doxycycline [DOXYCYCLINE] Allergy Severe Rash Verified 04/13/23 16:34 ketorolac [KETOROLAC] Allergy Severe HIVES, Verified 04/13/23 16:34 Renal insufficiency lithium [LITHIUM] Allergy Severe RASH, Verified 04/13/23 16:34 ERYTHEMA morphine [MORPHINE] Allergy Severe ITCHING, Verified 04/13/23 16:34 Nausea onabotulinumtoxinA Allergy Severe RASH, Verified 04/13/23 16:34 FACIAL SWELLING Penicillins [PENICILLINS] Allergy Severe ANAPHYLAXIS Verified 04/13/23 16:34 risperidone [RISPERIDONE] Allergy Severe RASH Verified 04/13/23 16:34 tramadol [TRAMADOL] Allergy Severe Instant Verified 04/13/23 16:34 Hives, welts hydroxyzine [HYDROXYZINE] Allergy Intermediate rash Verified 04/13/23 16:34 lisinopril [LISINOPRIL] Allergy Intermediate Rash, COUGH Verified 04/13/23 16:34 erythromycin base Allergy Mild Anaphylaxis Verified 04/13/23 16:34 [ERYTHROMYCIN BASE] nortriptyline [NORTRIPTYLINE] Allergy Mild RASH, Verified 04/13/23 16:34 Depression bromide salts [BROMIDE SALTS] Allergy Unknown Pt unsure Verified 04/13/23 16:34 of reaction estradiol [ESTRADIOL] Allergy Unknown Pt unsure Verified 04/13/23 16:34 of reaction etodolac [ETODOLAC] Allergy Unknown Hives, Verified 04/13/23 16:34 Renal insufficiency nickel [NICKEL] Allergy Unknown Rash, skin Verified 04/13/23 16:34 bleeds nitrofurantoin Allergy Unknown PT UNSURE Verified 04/13/23 16:34 [NITROFURANTOIN] OF REACTION NSAIDS (Non-Steroidal Allergy Unknown Hives, Verified 04/13/23 16:34 Anti-Inflamma Renal [NSAIDS (NON-STEROIDAL insufficiency ANTI-INFLAMMA] tiotropium [TIOTROPIUM] Allergy Unknown REACTION Verified 04/13/23 16:34 NOT LISTED tromethamine [TROMETHAMINE] Allergy Unknown Hives, PKD Verified 04/13/23 16:34 verapamil [VERAPAMIL] Allergy Unknown Pt unsure Verified 04/13/23 16:34 of reaction zonisamide [ZONISAMIDE] Allergy Unknown Pt unsure Verified 04/13/23 16:34 of reaction Iodinated Contrast Media Allergy IT WAS Verified 04/13/23 16:34 VERY BAD sulfasalazine Allergy Hives, Verified 04/13/23 16:34 vomiting codeine [CODEINE] AdvReac Severe Vomiting Verified 04/13/23 16:34 duloxetine [From CYMBALTA] AdvReac Severe MOUTH Verified 04/13/23 16:34 SORES hydrocodone [From VICODIN] AdvReac Severe VOMITING Verified 04/13/23 16:34 methocarbamol [METHOCARBAMOL] AdvReac Severe VOMITING Verified 04/13/23 16:34 quetiapine [From Seroquel] AdvReac Severe Anaphylaxis Verified 04/13/23 16:34 azithromycin [AZITHROMYCIN] AdvReac Intermediate NAUSEA, Verified 04/13/23 16:34 VOMITING carbamazepine [CARBAMAZEPINE] AdvReac Intermediate VOMITING Verified 04/13/23 16:34 olanzapine AdvReac Intermediate itching Verified 04/13/23 16:34 amitriptyline [AMITRIPTYLINE] AdvReac Mild MORE Verified 04/13/23 16:34 DEPRESSED, Itching cyclobenzaprine AdvReac Mild VOMIT Verified 04/13/23 16:34 [CYCLOBENZAPRINE] desvenlafaxine AdvReac Mild VOMIT Verified 04/13/23 16:34 [DESVENLAFAXINE] gabapentin AdvReac Mild MORE Verified 04/13/23 16:34 DEPRESSED divalproex sodium AdvReac Unknown Nausea, Verified 04/13/23 16:34 [DIVALPROEX SODIUM] shortness of breath sertraline [SERTRALINE] AdvReac Unknown Makes me Verified 04/13/23 16:34 feel more depressed Sulfa (Sulfonamide AdvReac Unknown VOMITING Verified 04/13/23 16:34 Antibiotics) *ABLE TO [SULFA (SULFONAMIDE TAKE ANTIBIOTICS)] LEVAQUIN ABX ONLY* azithromycin AdvReac Intermediate Nausea Uncoded 03/14/23 11:46 Review of Systems Review of Systems Narrative: See HPI Patient History Medical History Acute left-sided low back pain without sciatica Acute pain of left shoulder ADHD Agitation Allergies Anemia Ankle pain Anxiety Anxiety about health Anxiety and depression Benign familial tremor Bilateral lower extremity edema Bipolar 1 disorder Cervical somatic dysfunction Cervical spine disease (~2014) Cheilitis Chicken pox Chronic lumbar pain Chronic nausea Chronic neck pain Chronic pain of left knee Chronic right-sided low back pain without sciatica Cranial somatic dysfunction Dementia Depression Diverticular disease Dry skin Dysuria Ecchymoses, spontaneous Fall as cause of accidental injury in home as place of occurrence Fibromyalgia Frequent falls GI bleed Glaucoma Headache History of falling History of non anemic vitamin B12 deficiency Hot flashes due to menopause Hyperlipidemia Hypertension Hyponatremia with decreased serum osmolality Iliotibial band syndrome, left leg Insomnia disorder, with non-sleep disorder mental comorbidity, episodic Insomnia secondary to depression with anxiety Irritable bowel syndrome Kidney disease Measles Migraine headache NSTEMI (non-ST elevated myocardial infarction) Opioid abuse with other opioid-induced disorder Orthostatic hypotension Osteoarthritis Pelvic somatic dysfunction Postnasal drip Readmission after hospitalization within last 30 days Recurrent sinusitis Recurrent sinusitis Requires assistance with activities of daily living (ADL) Resting tremor Rheumatoid arthritis Segmental and somatic dysfunction of abdomen and other regions Segmental and somatic dysfunction of lumbar region Segmental and somatic dysfunction of sacral region Segmental and somatic dysfunction of thoracic region Segmental dysfunction of rib cage Sinusitis, acute maxillary Somatic dysfunction of lower extremity Swallowing difficulty Systolic congestive heart failure Urinary tract infection UTI (urinary tract infection) Vertigo Vision changes Vision disorder Surgical History Anesthesia H/O ventral hernia repair History of appendectomy History of arthroplasty of right knee (01/2019) History of bilateral salpingo-oophorectomy History of section History of cholecystectomy History of colonoscopy History of reduction mammoplasty History of spinal surgery (~2015) History of tonsillectomy History of total abdominal hysterectomy Family History Father History of heart disease Hypertension Hyperlipidemia Mother Diabetes mellitus History of heart disease Hyperlipidemia Hypertension Mental health problem Brother No problems noted. Brother Leukemia History of heart disease Diabetes mellitus Sister Kidney disease Alcoholic Mental health problem Grandfather History of heart disease Hypertension Grandmother Cancer Grandfather Hypertension History of heart disease Grandmother Low blood pressure Family/Other Mental health problem Social History household members: significant other Smoking Status: Current some day smoker alcohol intake: former Smoking Status: Current some day smoker alcohol intake frequency: other Substance Use Type: marijuana, painkillers and prescription drug Exam Initial Vital Signs Initial Vital Signs: Vital Signs Temperature 98.9 F 04/13/23 16:34 Pulse Rate 93 H 04/13/23 16:34 Respiratory Rate 17 04/13/23 16:34 Blood Pressure 112/63 04/13/23 16:34 Pulse Oximetry 96 04/13/23 16:34 Oxygen Delivery Method Room Air 04/13/23 16:34 Const General: disheveled HENMT Head: normal to inspection and normocephalic Resp Effort & Inspection: normal respiratory effort Auscultation: clear to auscultation bilaterally Cardio Rate: regular rate Rhythm: regular rhythm Skin General: no rashes or lesions noted Neuro General: patient alert, patient awake and moves all extremities Scores HEART Score Heart Score history: Slightly Suspicious Heart Score EKG: Normal Heart Score Age: > or = 65 years old Heart Score risk factors: 1-2 risk factors Heart Score troponin: < or = to normal limit Heart Score Total: 3 Course Orders Ordered: ED Orders 04/13/23 18:30 Urine Culture Stat Urine Drug Screen, Rapid Stat Urine Microscopic Stat 04/13/23 18:43 Acetaminophen Stat Comprehensive Metabolic Panel Stat Ethanol (ETOH) Stat Lipase Stat Magnesium Stat Salicylate Stat Troponin & CK Cardiac Panel Stat 04/13/23 21:47 Troponin & CK Cardiac Panel Stat Discontinued Medications Acetaminophen (Acetaminophen 325 Mg Tablet) 650 mg PO NOW ONE Stop: 04/13/23 20:27 Last Admin: 04/13/23 20:30 Dose: Not Given Documented By: YADIRA Ondansetron HCl (Ondansetron 4 Mg/2 Ml Inj) 4 mg IV NOW ONE Stop: 04/13/23 21:16 Last Admin: 04/13/23 21:17 Dose: Not Given Documented By: HEAVENLY Vital Signs Vital signs: Vital Signs - 8 hr 04/13/23 18:53 04/13/23 19:24 04/13/23 20:04 Temperature Pulse Rate 73 90 82 Respiratory Rate 18 14 14 Blood Pressure 123/73 99/51 L 104/78 Pulse Oximetry 99 99 99 Oxygen Delivery Method Room Air Room Air Room Air 04/13/23 20:24 04/13/23 20:26 04/13/23 20:30 Temperature Pulse Rate 93 H Respiratory Rate 20 Blood Pressure 116/74 122/73 Pulse Oximetry 93 Oxygen Delivery Method 04/13/23 20:30 04/13/23 21:00 04/13/23 21:00 Temperature Pulse Rate 87 90 Respiratory Rate 26 H 20 Blood Pressure 122/63 Pulse Oximetry 98 Oxygen Delivery Method Room Air 04/13/23 21:30 04/13/23 21:30 04/13/23 22:00 Temperature Pulse Rate 97 H Respiratory Rate 22 Blood Pressure 126/64 108/69 Pulse Oximetry 98 Oxygen Delivery Method 04/13/23 22:00 04/13/23 22:30 04/13/23 22:30 Temperature Pulse Rate 95 H 96 H Respiratory Rate 20 22 Blood Pressure 106/56 L Pulse Oximetry 97 95 Oxygen Delivery Method 04/13/23 23:00 04/13/23 23:00 04/13/23 23:30 Temperature Pulse Rate 92 H Respiratory Rate 22 Blood Pressure 102/56 L 132/72 Pulse Oximetry 95 Oxygen Delivery Method 04/13/23 23:30 04/14/23 00:00 04/14/23 00:00 Temperature Pulse Rate 96 H 96 H Respiratory Rate 22 26 H Blood Pressure 120/69 Pulse Oximetry 93 97 Oxygen Delivery Method 04/14/23 00:30 04/14/23 00:30 04/14/23 01:00 Temperature Pulse Rate 108 H Respiratory Rate 13 Blood Pressure 102/73 100/67 Pulse Oximetry 97 Oxygen Delivery Method 04/14/23 01:00 04/14/23 01:30 04/14/23 01:30 Temperature 97.2 F L Pulse Rate 99 H 103 H Respiratory Rate 20 16 Blood Pressure 129/70 Pulse Oximetry 95 97 Oxygen Delivery Method MDM - Chest Pain Lab Data Attestation: I reviewed the patient's lab results. 04/13/23 17:11 04/13/23 18:43 Labs: Lab Results 04/13/23 04/13/23 04/13/23 Range/Units 17:11 17:11 18:30 WBC 7.1 (4.5-11.0) X10^3/uL RBC 3.71 L (4.0-5.2) X10^6/uL Hgb 10.9 L (12.0-16.0) g/dL Hct 32.9 L (36-46) % MCV 88.5 (80-100) fL MCH 29.3 (26-34) PG MCHC 33.1 (30-36) % RDW 15.8 H (11.6-14.8) % Plt Count 291 (150-400) X10^3/uL Neut % (Auto) 64.3 (50-75) % Lymph % (Auto) 19.3 L (25-40) % [place] % (Auto) 12.1 (3-14) % Eos % (Auto) 3.3 (2-4) % Baso % (Auto) 1.0 (0-2) % Neut # (Auto) 4600 (8490-8678) /uL Lymph # (Auto) 1400 (9388-8586) /uL [place] # (Auto) 900 (0-900) /uL Eos # (Auto) 200 (0-450) /uL Baso # (Auto) 100 (0-100) /uL PT 11.0 (10.1-12.7) SECONDS INR 1.0 (0.9-1.3) APTT 29 (26-36) SECONDS Sodium (137-145) mmol/L Potassium (3.4-5.1) mmol/L Chloride (98-107) mmol/L Carbon Dioxide (22-32) mmol/L BUN (7-17) mg/dL Creatinine (0.52-1.04) mg/dL Estimated GFR (>60) mL/min BUN/Creatinine Ratio (6-22) Glucose (80-110) mg/dL Calcium (8.4-10.2) mg/dL Magnesium (1.6-2.3) mg/dL Total Bilirubin (0.2-1.3) mg/dL AST (14-36) IU/L ALT (<35) IU/L Alkaline Phosphatase (38-126) U/L Total Creatine Kinase (30-135) U/L Troponin I (0.01-0.034) ng/mL Total Protein (6.3-8.2) g/dL Albumin (3.5-5.0) g/dL Globulin (1.7-4.1) g/dL Albumin/Globulin Ratio (1.0-2.8) Lipase (23-300) U/L Urine RBC (0-5/HPF) Urine WBC (0-5/HPF) Ur Squamous Epith Cells (0-5/HPF) Urine Bacteria (None) Ur Culture Indicated? Salicylates (<20) mg/dL U Opiates 300ng/mL cut Negative (Negative) Ur Oxycodone Screen Negative (Negative) Urine Methadone Screen Negative (Negative) Acetaminophen (10-30) ug/mL Ur Barbiturates Screen Negative (Negative) U Tricyclic Antidepress Positive H (Negative) Ur Phencyclidine Scrn Negative (Negative) Ur Amphetamines Screen Negative (Negative) U Methamphetamines Scrn Negative (Negative) Ur MDMA Scrn (Ecstasy) Negative (Negative) U Benzodiazepines Scrn Positive H (Negative) Urine Cocaine Screen Negative (Negative) U Marijuana (THC) Screen Positive H (Negative) Ethyl Alcohol ( - 10) mg/dL 04/13/23 04/13/23 04/13/23 Range/Units 18:30 18:43 18:43 WBC (4.5-11.0) X10^3/uL RBC (4.0-5.2) X10^6/uL Hgb (12.0-16.0) g/dL Hct (36-46) % MCV (80-100) fL MCH (26-34) PG MCHC (30-36) % RDW (11.6-14.8) % Plt Count (150-400) X10^3/uL Neut % (Auto) (50-75) % Lymph % (Auto) (25-40) % [place] % (Auto) (3-14) % Eos % (Auto) (2-4) % Baso % (Auto) (0-2) % Neut # (Auto) (6383-8030) /uL Lymph # (Auto) (8545-5499) /uL [place] # (Auto) (0-900) /uL Eos # (Auto) (0-450) /uL Baso # (Auto) (0-100) /uL PT (10.1-12.7) SECONDS INR (0.9-1.3) APTT (26-36) SECONDS Sodium 135 L (137-145) mmol/L Potassium 3.9 (3.4-5.1) mmol/L Chloride 103 (98-107) mmol/L Carbon Dioxide 26 (22-32) mmol/L BUN 34 H (7-17) mg/dL Creatinine 1.21 H (0.52-1.04) mg/dL Estimated GFR 49 L (>60) mL/min BUN/Creatinine Ratio 28.1 H (6-22) Glucose 77 L (80-110) mg/dL Calcium 9.6 (8.4-10.2) mg/dL Magnesium 1.9 (1.6-2.3) mg/dL Total Bilirubin 0.4 (0.2-1.3) mg/dL AST 31 (14-36) IU/L ALT 23 (<35) IU/L Alkaline Phosphatase 70 (38-126) U/L Total Creatine Kinase 86 (30-135) U/L Troponin I < 0.012 (0.01-0.034) ng/mL Total Protein 7.4 (6.3-8.2) g/dL Albumin 3.7 (3.5-5.0) g/dL Globulin 3.7 (1.7-4.1) g/dL Albumin/Globulin Ratio 1.0 (1.0-2.8) Lipase 291 (23-300) U/L Urine RBC 1-5/hpf (0-5/HPF) Urine WBC 10-30/hpf H (0-5/HPF) Ur Squamous Epith Cells 5-10 /hpf H (0-5/HPF) Urine Bacteria Many (>30) H (None) Ur Culture Indicated? Specimen cultured Salicylates (<20) mg/dL U Opiates 300ng/mL cut (Negative) Ur Oxycodone Screen (Negative) Urine Methadone Screen (Negative) Acetaminophen (10-30) ug/mL Ur Barbiturates Screen (Negative) U Tricyclic Antidepress (Negative) Ur Phencyclidine Scrn (Negative) Ur Amphetamines Screen (Negative) U Methamphetamines Scrn (Negative) Ur MDMA Scrn (Ecstasy) (Negative) U Benzodiazepines Scrn (Negative) Urine Cocaine Screen (Negative) U Marijuana (THC) Screen (Negative) Ethyl Alcohol < 10 ( - 10) mg/dL 04/13/23 04/13/23 Range/Units 18:43 21:47 WBC (4.5-11.0) X10^3/uL RBC (4.0-5.2) X10^6/uL Hgb (12.0-16.0) g/dL Hct (36-46) % MCV (80-100) fL MCH (26-34) PG MCHC (30-36) % RDW (11.6-14.8) % Plt Count (150-400) X10^3/uL Neut % (Auto) (50-75) % Lymph % (Auto) (25-40) % [place] % (Auto) (3-14) % Eos % (Auto) (2-4) % Baso % (Auto) (0-2) % Neut # (Auto) (6338-7172) /uL Lymph # (Auto) (9566-4559) /uL [place] # (Auto) (0-900) /uL Eos # (Auto) (0-450) /uL Baso # (Auto) (0-100) /uL PT (10.1-12.7) SECONDS INR (0.9-1.3) APTT (26-36) SECONDS Sodium (137-145) mmol/L Potassium (3.4-5.1) mmol/L Chloride (98-107) mmol/L Carbon Dioxide (22-32) mmol/L BUN (7-17) mg/dL Creatinine (0.52-1.04) mg/dL Estimated GFR (>60) mL/min BUN/Creatinine Ratio (6-22) Glucose (80-110) mg/dL Calcium (8.4-10.2) mg/dL Magnesium (1.6-2.3) mg/dL Total Bilirubin (0.2-1.3) mg/dL AST (14-36) IU/L ALT (<35) IU/L Alkaline Phosphatase (38-126) U/L Total Creatine Kinase 74 (30-135) U/L Troponin I < 0.012 (0.01-0.034) ng/mL Total Protein (6.3-8.2) g/dL Albumin (3.5-5.0) g/dL Globulin (1.7-4.1) g/dL Albumin/Globulin Ratio (1.0-2.8) Lipase (23-300) U/L Urine RBC (0-5/HPF) Urine WBC (0-5/HPF) Ur Squamous Epith Cells (0-5/HPF) Urine Bacteria (None) Ur Culture Indicated? Salicylates 1.9 (<20) mg/dL U Opiates 300ng/mL cut (Negative) Ur Oxycodone Screen (Negative) Urine Methadone Screen (Negative) Acetaminophen < 10 (10-30) ug/mL Ur Barbiturates Screen (Negative) U Tricyclic Antidepress (Negative) Ur Phencyclidine Scrn (Negative) Ur Amphetamines Screen (Negative) U Methamphetamines Scrn (Negative) Ur MDMA Scrn (Ecstasy) (Negative) U Benzodiazepines Scrn (Negative) Urine Cocaine Screen (Negative) U Marijuana (THC) Screen (Negative) Ethyl Alcohol ( - 10) mg/dL Urine Dip Bedside Urine Glucose Negative Bedside Urine Bilirubin - Negative Bedside Urine Ketone - Negative Urine Specific Naylor 1.015 Bedside Urine Occult Blood ++ Bedside Urine pH 6 Bedside Urine Protein +/- 15 Bedside Urine Urobilinogen - Negative Bedside Urine Nitrite - Negative Bedside Urine Leukocytes +++ 500 Esterase Imaging Data Chest x-ray: Radiologist's Impression: PROCEDURE:? XR CHEST 1V ? INDICATIONS:? chest pain ? TECHNIQUE:? One view of the chest was acquired.? ? COMPARISON:? [facility], CR, XR CHEST 1V, 02/22/2022, 10:08. ? FINDINGS:? ? Surgical changes and devices:? None.? ? Lungs and pleura:? Lungs are clear.? No pleural effusions or pneumothorax.? ? Mediastinum:? Mediastinal contours appear normal.? Heart size is normal.? ? Bones and chest wall:? No suspicious bony lesions.? Healed fractures of the right lower ribs.? Overlying soft tissues appear unremarkable.? ? ? IMPRESSION:? No acute cardiopulmonary abnormality. ECG Data Attestation: I personally reviewed and interpreted this ECG as follows: Interpretation: Sinus rhythm Ventricular rate of 94 Normal axis Normal QRS Normal QTC No ST T wave changes MDM Narrative Medical decision making narrative: It is difficult to obtain in HPI from the patient. Her workup here in the emergency department is very reassuring to include an unremarkable EKG, chest x- ray, 2- troponins. She slept here in the emergency department for period of time. When she woke up she was asking to go home. She ambulated to the bathroom without issue. Her alcohol level was negative. We will discharge the patient home to follow-up with her primary doctor. Discharge Plan Departure Patient Disposition: Home Clinical Impression: Atypical chest pain Activity Restrictions/Additional Instructions: I recommend that you take all of your medications as directed and contact your primary doctor for a follow-up. Prescriptions: No Action (DME) Handicap Parking Permit See Rx Instructions .Route .MEDSUPPLY Qty: 1 0RF Rx Instructions: As directed naloxone [Narcan] 4 mg/actuation spray,non-aerosol 4 mg intranasal Q3M PRN (Reason: opioid overdose) Qty: 1 0RF Rx Instructions: spray 1 dose into ONE nostril; alternate nostrils w each dose until help arrives fluticasone propionate 50 mcg/actuation spray,suspension 1 spray intranasal BID PRN (Reason: allergy symptoms) Qty: 15.8 3RF eszopiclone 1 mg tablet See Rx Instructions .ROUTE .COMPLEX Qty: 90 5RF Rx Instructions: Start with 1 tablet by mouth at bedtime. Increase daily by 1 tab up to 3 tabs at bedtime. simvastatin 40 mg tablet 40 mg PO BEDTIME Qty: 90 3RF triamcinolone acetonide 0.1 % ointment See Rx Instructions .ROUTE .COMPLEX Qty: 80 0RF Dose Instruction: apply topically daily to face and neck Rx Instructions: apply topically daily to face and neck spironolactone 25 mg tablet See Rx Instructions .ROUTE .COMPLEX Qty: 90 3RF Dose Instruction: TAKE ONE TABLET BY MOUTH ONE TIME DAILY Rx Instructions: TAKE ONE TABLET BY MOUTH ONE TIME DAILY metoprolol tartrate 25 mg tablet 25 mg PO BID Qty: 180 3RF estradiol [Estrace] 0.01 % (0.1 mg/gram) cream 1 appful vaginal DAILY Qty: 42.5 5RF Rx Instructions: for 14 days, then twice weekly as needed promethazine 25 mg tablet See Rx Instructions .ROUTE .COMPLEX Qty: 90 11RF Dose Instruction: Take 1 tablet (25 mg) by mouth four times daily As Needed for nausea and vomiting Rx Instructions: Take 1 tablet (25 mg) by mouth four times daily As Needed for nausea and vomiting potassium chloride 10 mEq tablet extended release 10 meq PO MoWeFr@0900 Qty: 90 3RF sumatriptan succinate 100 mg tablet 100 mg PO DAILY MDD 2 tabs daily PRN (Reason: Migraines) Qty: 36 3RF aspirin 81 mg tablet,delayed release (DR/EC) 81 mg PO DAILY Qty: 90 3RF lorazepam 2 mg tablet 2 mg PO TID PRN (Reason: anxiety) Qty: 90 5RF furosemide 40 mg tablet 40 mg PO BID Qty: 180 3RF diclofenac sodium 3 % gel 1 applic topical BID Qty: 100 5RF levothyroxine 125 mcg tablet 125 mcg PO DAILY Qty: 90 3RF diclofenac sodium 1 % gel 2 g topical QID Qty: 100 3RF Rx Instructions: apply to single elbow, wrist or hand; for hand includes palm/fingers/back of hand pantoprazole [Protonix] 20 mg tablet,delayed release (DR/EC) 20 mg PO BID Qty: 180 3RF albuterol sulfate [ProAir HFA] 90 mcg/actuation HFA aerosol inhaler 2 puff inhalation Q6H PRN (Reason: shortness of breath or wheezing) Qty: 6.7 11RF magnesium oxide 400 mg (241.3 mg magnesium) Tablet 800 mg PO DAILY Qty: 30 0RF baclofen 10 mg tablet 10 mg PO TID PRN (Reason: muscle spasms) Rx Instructions: TAKE ONE TABLET BY MOUTH THREE TIMES DAILY Referrals: Aldo Tristan DO [Primary Care Provider] - Stand Alone Forms: Patient Portal/API
[2023-04-13 22:06] LABS: Creatine Kinase 74 U/L (30-135)
[2023-04-13 22:19] LABS: Troponin I < 0.012 ng/mL (0.01-0.034)
[2023-04-13 22:20] LABS: Acetaminophen < 10 ug/mL (10-30); Salicylate 1.9 mg/dL (<20)
[2023-04-14] VITALS: BP 120/69; PULSE 96; RESP 26; O2SAT 97
[2023-04-14 00:30] VITALS: BP 102/73; PULSE 108; RESP 13; O2SAT 97
[2023-04-14 01:00] VITALS: BP 100/67; PULSE 99; RESP 20; TEMP 36.2; O2SAT 95
[2023-04-14 01:30] VITALS: BP 129/70; PULSE 103; RESP 16; O2SAT 97
== END 2023-04-14 02:10 | disposition home or self-care (01) ==
PROVIDERS: Emergency Medicine; Emergency Provider Emergency Medicine; Family Provider Family Medicine; PCP Family Medicine
DX: R07.89 Other chest pain (principal); D64.9 Anemia, unspecified; E03.9 Hypothyroidism, unspecified; E78.5 Hyperlipidemia, unspecified; I10 Essential (primary) hypertension; I50.20 Unspecified systolic (congestive) heart failure; Z79.899 Other long term (current) drug therapy
CPT/HCPCS: 36415; 71045; 80053; 80305; 80320; 80329; 81003; 81015; 82550; 83690; 83735; 84439; 84443; 84484; 85025; 85610; 85730; 87086; 93005; 93010; 99284; G0480

== ENCOUNTER 2023-05-03 09:55 | Emergency (ER) | payer MEDICARE, MEDICAID, SELFPAY ==
[2021-11-10 13:44] VITALS: BMI 22.4
[2023-05-03] VITALS (12 sets, daily range): BP systolic 94–107; BP diastolic 55–70; PULSE 72–146; RESP 19–48; TEMP 36.6; O2SAT 93–99
--- NOTE | 2023-05-03 10:03 | DI.CT.S_ITS ---
PROCEDURE: CT ABDOMEN PELVIS W CON INDICATIONS: ABD PAIN TECHNIQUE: After the administration of intravenous contrast, axial sections acquired from the lung bases to the pubic symphysis. Coronal and sagittal reformats were performed. For radiation dose reduction, the following was used: automated exposure control, adjustment of mA and/or kV according to patient size. COMPARISON: [facility], CT, CT ABDOMEN PELVIS WITHOUT CONTRAST, 04/24/2023, 15:28. [facility], CT, ABDOMEN/PELVIS WITH CONTRAST, 10/04/2007, 13:49. [facility], CT, ABDOMEN/PELVIS WITH CONTRAST, 08/29/2007, 11:11. FINDINGS: Image quality: Excellent. Lung bases: Mild dependent atelectasis in the lung bases versus chronic interstitial changes. Heart: No significant findings. ABDOMEN: Liver: Unremarkable. Gallbladder: Status post cholecystectomy. Biliary ducts: Within normal limits in the post cholecystectomy state. Pancreas: Unremarkable. Spleen: Unremarkable. Adrenal Glands: Unremarkable. Kidneys and Ureters: Numerous bilateral renal cysts are present, not significantly changed when compared to the CT from 04/24/2023. Partially duplex left renal collecting system. Stomach and Bowel: Moderate to large hiatal hernia. Small bowel loops are unremarkable. Multiple diverticula are seen in the colon without signs of acute diverticulitis. Liquid stool material is seen within the ascending and transverse colon, which is nonspecific. The appendix is not well visualized, but there are no secondary signs of acute appendicitis. Peritoneum: No abnormal intraperitoneal fluid. No free air. Ventral Wall: Fat containing periumbilical hernia. Abdominal Nodes: No retroperitoneal or mesenteric adenopathy by size criteria. Vessels: Aorta and inferior vena cava are normal in size. PELVIS: Pelvic Organs: Status post hysterectomy. Bladder: Unremarkable. Pelvic Nodes: No enlarged lymph nodes. Miscellaneous: No hernias are seen. Bones: Postsurgical changes are seen in the included lumbar spine. Old healed right posterior rib fractures are present. IMPRESSION: 1. No definite acute abnormality identified in the abdomen or pelvis. 2. Colonic diverticulosis without signs of acute diverticulitis. Liquid stool is seen in the ascending and transverse colon, nonspecific but correlation for causes of diarrhea are recommended. 3. Numerous bilateral renal cysts. 4. Moderate to large hiatal hernia. Approved by: Mendoza Werner M.D. on 05/03/2023 at 12:46
--- NOTE | 2023-05-03 10:03 | ED.ABDPAIN ---
HPI - Abdominal Pain General Chief Complaint: Abdominal Pain Stated Complaint: sent from DR martita LOPEZ pain Time Seen by Provider: 05/03/23 09:58 History of Present Illness HPI narrative: 67yoF with PMH CHF, substance use, chronic chest pain, Bipolar disorder, hiatal hernia, multiple ED visits presents for bilateral lower quadrant abdominal pain. Patient was seen at the walk in clinic, however due to the severity of her pain she was referred to the ER for further workup and treatment. History limited as patient is belligerent with staff, answers all questions with it should be all in my chart, and requests pain medications. Related Data Home Medications Medication Instructions Recorded Confirmed baclofen 10 mg tablet 10 mg PO TID PRN muscle spasms 04/13/23 05/03/23 aspirin 81 mg capsule (Vazalore) 81 mg PO DAILY 05/03/23 05/03/23 linaclotide 145 mcg capsule 145 mcg PO DAILY 05/03/23 05/03/23 (Linzess) losartan 25 mg tablet 25 mg PO DAILY 05/03/23 05/03/23 potassium chloride 10 mEq 10 meq PO DAILY 05/03/23 05/03/23 tablet,extended release(part/cryst) Previous Rx's Medication Instructions Recorded Handicap Parking Permit #1 ea 09/08/21 magnesium oxide 400 mg (241.3 mg 800 mg PO DAILY #30 tabs 10/05/21 magnesium) tablet naloxone 4 mg/actuation nasal 4 mg intranasal Q3M PRN opioid 10/18/21 spray (Narcan) overdose #1 ea sumatriptan succinate 100 mg tablet 100 mg PO DAILY PRN Migraines #36 09/27/22 tabs fluticasone propionate 50 1 spray intranasal BID PRN allergy 10/10/22 mcg/actuation nasal symptoms #15.8 mL spray,suspension aspirin 81 mg tablet,delayed 81 mg PO DAILY #90 tabs 11/13/22 release eszopiclone 1 mg tablet See Rx Instructions .Route 11/20/22 .COMPLEX #90 tabs simvastatin 40 mg tablet 40 mg PO BEDTIME #90 tabs 11/20/22 diclofenac sodium 3 % topical gel 1 applic topical BID pain #100 01/03/23 grams furosemide 40 mg tablet 40 mg PO BID #180 tabs 01/03/23 lorazepam 2 mg tablet 2 mg PO TID PRN anxiety #90 tabs 01/03/23 triamcinolone acetonide 0.1 % See Rx Instructions .Route 01/26/23 topical ointment .COMPLEX #80 grams estradiol 0.01% (0.1 mg/gram) 1 appful vaginal DAILY #42.5 grams 02/22/23 vaginal cream (Estrace) metoprolol tartrate 25 mg tablet 25 mg PO BID #180 tabs 02/22/23 promethazine 25 mg tablet See Rx Instructions .Route 03/13/23 .COMPLEX #90 tabs albuterol sulfate 90 mcg/actuation 2 puff inhalation Q6H PRN 03/14/23 aerosol inhaler (ProAir HFA) shortness of breath or wheezing #6.7 grams diclofenac sodium 1 % topical gel 2 g topical QID pain #100 grams 03/14/23 pantoprazole 20 mg tablet,delayed 20 mg PO BID #180 tabs 03/14/23 release (Protonix) potassium chloride 10 mEq 10 meq PO MoWeFr@0900 #90 tabs 03/15/23 tablet,extended release aripiprazole 10 mg tablet (Abilify) 10 mg PO BEDTIME #30 tabs 05/03/23 levothyroxine 112 mcg tablet 112 mcg PO DAILY #30 tabs 05/03/23 Allergies Allergy/AdvReac Type Severity Reaction Status Date / Time adhesive [ADHESIVE] Allergy Severe RASH Verified 05/03/23 09:03 doxycycline [DOXYCYCLINE] Allergy Severe Rash Verified 05/03/23 09:03 ketorolac [KETOROLAC] Allergy Severe HIVES, Verified 05/03/23 09:03 Renal insufficiency lithium [LITHIUM] Allergy Severe RASH, Verified 05/03/23 09:03 ERYTHEMA morphine [MORPHINE] Allergy Severe ITCHING, Verified 05/03/23 09:03 Nausea onabotulinumtoxinA Allergy Severe RASH, Verified 05/03/23 09:03 FACIAL SWELLING Penicillins [PENICILLINS] Allergy Severe ANAPHYLAXIS Verified 05/03/23 09:03 risperidone [RISPERIDONE] Allergy Severe RASH Verified 05/03/23 09:03 tramadol [TRAMADOL] Allergy Severe Instant Verified 05/03/23 09:03 Hives, welts hydroxyzine [HYDROXYZINE] Allergy Intermediate rash Verified 05/03/23 09:03 lisinopril [LISINOPRIL] Allergy Intermediate Rash, COUGH Verified 05/03/23 09:03 erythromycin base Allergy Mild Anaphylaxis Verified 05/03/23 09:03 [ERYTHROMYCIN BASE] nortriptyline [NORTRIPTYLINE] Allergy Mild RASH, Verified 05/03/23 09:03 Depression bromide salts [BROMIDE SALTS] Allergy Unknown Pt unsure Verified 05/03/23 09:03 of reaction estradiol [ESTRADIOL] Allergy Unknown Pt unsure Verified 05/03/23 09:03 of reaction etodolac [ETODOLAC] Allergy Unknown Hives, Verified 05/03/23 09:03 Renal insufficiency nickel [NICKEL] Allergy Unknown Rash, skin Verified 05/03/23 09:03 bleeds nitrofurantoin Allergy Unknown PT UNSURE Verified 05/03/23 09:03 [NITROFURANTOIN] OF REACTION NSAIDS (Non-Steroidal Allergy Unknown Hives, Verified 05/03/23 09:03 Anti-Inflamma Renal [NSAIDS (NON-STEROIDAL insufficiency ANTI-INFLAMMA] tiotropium [TIOTROPIUM] Allergy Unknown REACTION Verified 05/03/23 09:03 NOT LISTED tromethamine [TROMETHAMINE] Allergy Unknown Hives, PKD Verified 05/03/23 09:03 verapamil [VERAPAMIL] Allergy Unknown Pt unsure Verified 05/03/23 09:03 of reaction zonisamide [ZONISAMIDE] Allergy Unknown Pt unsure Verified 05/03/23 09:03 of reaction Iodinated Contrast Media Allergy IT WAS Verified 05/03/23 09:03 VERY BAD sulfasalazine Allergy Hives, Verified 05/03/23 09:03 vomiting codeine [CODEINE] AdvReac Severe Vomiting Verified 05/03/23 09:03 duloxetine [From CYMBALTA] AdvReac Severe MOUTH Verified 05/03/23 09:03 SORES hydrocodone [From VICODIN] AdvReac Severe VOMITING Verified 05/03/23 09:03 methocarbamol [METHOCARBAMOL] AdvReac Severe VOMITING Verified 05/03/23 09:03 quetiapine [From Seroquel] AdvReac Severe Anaphylaxis Verified 05/03/23 09:03 azithromycin [AZITHROMYCIN] AdvReac Intermediate NAUSEA, Verified 05/03/23 09:03 VOMITING carbamazepine [CARBAMAZEPINE] AdvReac Intermediate VOMITING Verified 05/03/23 09:03 olanzapine AdvReac Intermediate itching Verified 05/03/23 09:03 amitriptyline [AMITRIPTYLINE] AdvReac Mild MORE Verified 05/03/23 09:03 DEPRESSED, Itching cyclobenzaprine AdvReac Mild VOMIT Verified 05/03/23 09:03 [CYCLOBENZAPRINE] desvenlafaxine AdvReac Mild VOMIT Verified 05/03/23 09:03 [DESVENLAFAXINE] gabapentin AdvReac Mild MORE Verified 05/03/23 09:03 DEPRESSED divalproex sodium AdvReac Unknown Nausea, Verified 05/03/23 09:03 [DIVALPROEX SODIUM] shortness of breath sertraline [SERTRALINE] AdvReac Unknown Makes me Verified 05/03/23 09:03 feel more depressed Sulfa (Sulfonamide AdvReac Unknown VOMITING Verified 05/03/23 09:03 Antibiotics) *ABLE TO [SULFA (SULFONAMIDE TAKE ANTIBIOTICS)] LEVAQUIN ABX ONLY* azithromycin AdvReac Intermediate Nausea Uncoded 05/03/23 09:03 Review of Systems Review of Systems ROS Unobtainable: All systems reviewed & are unremarkable except as noted in HPI and below and Other Gastrointestinal Gastrointestinal: Reports abdominal pain Patient History Medical History Acute left-sided low back pain without sciatica Acute pain of left shoulder ADHD Agitation Allergies Anemia Ankle pain Anxiety Anxiety about health Anxiety and depression Benign familial tremor Bilateral lower extremity edema Bipolar 1 disorder Cervical somatic dysfunction Cervical spine disease (~2014) Cheilitis Chicken pox Chronic lumbar pain Chronic nausea Chronic neck pain Chronic pain of left knee Chronic right-sided low back pain without sciatica Cranial somatic dysfunction Dementia Depression Diverticular disease Dry skin Dysuria Ecchymoses, spontaneous Fall as cause of accidental injury in home as place of occurrence Fibromyalgia Frequent falls GI bleed Glaucoma Headache History of falling History of non anemic vitamin B12 deficiency Hot flashes due to menopause Hyperlipidemia Hypertension Hyponatremia with decreased serum osmolality Iliotibial band syndrome, left leg Insomnia disorder, with non-sleep disorder mental comorbidity, episodic Insomnia secondary to depression with anxiety Irritable bowel syndrome Kidney disease Measles Migraine headache NSTEMI (non-ST elevated myocardial infarction) Opioid abuse with other opioid-induced disorder Orthostatic hypotension Osteoarthritis Pelvic somatic dysfunction Postnasal drip Readmission after hospitalization within last 30 days Recurrent sinusitis Recurrent sinusitis Requires assistance with activities of daily living (ADL) Resting tremor Rheumatoid arthritis Segmental and somatic dysfunction of abdomen and other regions Segmental and somatic dysfunction of lumbar region Segmental and somatic dysfunction of sacral region Segmental and somatic dysfunction of thoracic region Segmental dysfunction of rib cage Sinusitis, acute maxillary Somatic dysfunction of lower extremity Swallowing difficulty Systolic congestive heart failure Urinary tract infection UTI (urinary tract infection) Vertigo Vision changes Vision disorder Surgical History Anesthesia H/O ventral hernia repair History of appendectomy History of arthroplasty of right knee (01/2019) History of bilateral salpingo-oophorectomy History of section History of cholecystectomy History of colonoscopy History of reduction mammoplasty History of spinal surgery (~2015) History of tonsillectomy History of total abdominal hysterectomy Family History Father History of heart disease Hypertension Hyperlipidemia Mother Diabetes mellitus History of heart disease Hyperlipidemia Hypertension Mental health problem Brother No problems noted. Brother Leukemia History of heart disease Diabetes mellitus Sister Kidney disease Alcoholic Mental health problem Grandfather History of heart disease Hypertension Grandmother Cancer Grandfather Hypertension History of heart disease Grandmother Low blood pressure Family/Other Mental health problem Social History household members: significant other Smoking Status: Former smoker alcohol intake: former Smoking Status: Former smoker alcohol intake frequency: other Substance Use Type: marijuana, painkillers and prescription drug Exam Initial Vital Signs Initial Vital Signs: Vital Signs Temperature 98 F 05/03/23 11:02 Oxygen Delivery Method Room Air 05/03/23 11:02 Const: Awake, alert, tearful, appears chronically unwell Eyes: PERRL, EOMI, conjunctiva normal ENT: Atraumatic, dentition normal, mucous membranes moist Cardiac: regular rate, regular rhythm RESP: unlabored, clear bilaterally, no wheezing GI: Atraumatic, soft, nondistended, bilateral lower quadrant tenderness to deep palpation MSK: Atraumatic, full range of motion, pulses equal Skin: Warm, Dry, intact, no rashes Neuro: AO x3, CN II-XII grossly intact, moves all extremities Psych: affect normal, mood normal, not suicidal, not homicidal Course Course Course Narrative: Bilateral lower quadrant abdominal pain. Patient is tearful on arrival. Will order CT scan of the abdomen and pelvis. Patient reports allergy to contrast dye, we will give Benadryl and Solu-Medrol. Orders Ordered: ED Orders 05/03/23 10:03 CT abdomen pelvis w con Stat EKG-12 Lead Stat 05/03/23 11:00 CBC Auto Diff [Complete Blood Count AUTO DIFF] Stat CMP [Comprehensive Metabolic Panel] Stat Lactate (Lactic Acid) Stat Lipase Stat 05/03/23 11:50 UA Complete [Urinalysis and Microscopic] Stat Urine Drug Screen, Rapid Stat Discontinued Medications Diphenhydramine HCl (Diphenhydramine 50 Mg/Ml Vial) 25 mg IV NOW ONE Stop: 05/03/23 11:12 Last Admin: 05/03/23 11:18 Dose: 25 mg Documented By: ST Sodium Chloride (Normal Saline 0.9%) 1,000 mls @ 1,000 mls/hr IV BOLUS ONE Stop: 05/03/23 13:59 Last Infusion: 05/03/23 13:36 Dose: 0 mls/hr Documented By: Admin: 05/03/23 13:36 Dose: 1,000 mls/hr Documented By: SORAIDA Methylprednisolone (Methylprednisolone 125 Mg/2 Ml Vial) 125 mg IV NOW ONE Stop: 05/03/23 11:12 Last Admin: 05/03/23 11:20 Dose: 125 mg Documented By: Morphine Sulfate (Morphine 4 Mg/Ml Inj) 4 mg IV NOW ONE Stop: 05/03/23 10:05 Last Admin: 05/03/23 11:18 Dose: 4 mg Documented By: Reevaluation(s) Reevaluation #1: Laboratory work shows decrease in patient's hemoglobin from previous. Patient denies any bleeding, however she did receive several L of IV fluids at outside hospital not long ago after visiting for chest pain. Reevaluation #2: CT imaging shows no acute findings to suggest cause of patient's pain. Urinalysis with 3+ hematuria, no evidence of cystitis. Patient informed of her lab and imaging results. Recommended follow up with Urology for further investigation of hematuria, referral provided. Vital Signs Vital signs: Vital Signs - 8 hr 05/03/23 11:02 05/03/23 11:14 05/03/23 11:30 Temperature 98 F Pulse Rate 73 Respiratory Rate 28 H Blood Pressure 101/57 L Pulse Oximetry 99 Oxygen Delivery Method Room Air 05/03/23 11:30 05/03/23 11:45 05/03/23 11:45 Temperature Pulse Rate 72 74 Respiratory Rate 26 H 22 Blood Pressure 107/62 Pulse Oximetry 94 93 Oxygen Delivery Method 05/03/23 12:02 05/03/23 12:08 05/03/23 12:08 Temperature Pulse Rate 73 72 Respiratory Rate 21 19 Blood Pressure 99/58 L Pulse Oximetry 97 96 Oxygen Delivery Method 05/03/23 12:30 05/03/23 12:30 05/03/23 13:00 Temperature Pulse Rate 76 Respiratory Rate 23 Blood Pressure 94/55 L 103/56 L Pulse Oximetry 94 Oxygen Delivery Method Room Air 05/03/23 13:00 05/03/23 13:30 05/03/23 13:30 Temperature Pulse Rate 76 75 Respiratory Rate 21 20 Blood Pressure 101/56 L Pulse Oximetry 94 95 Oxygen Delivery Method 05/03/23 14:00 05/03/23 14:01 05/03/23 14:01 Temperature Pulse Rate 146 H 82 Respiratory Rate 48 H Blood Pressure 98/70 Pulse Oximetry 97 95 Oxygen Delivery Method 05/03/23 14:13 Temperature Pulse Rate 79 Respiratory Rate Blood Pressure 106/68 Pulse Oximetry 96 Oxygen Delivery Method Room Air MDM - Abdominal Pain Differential Diagnosis Differential diagnosis: Likely abdominal pain, acute appendicitis and calculus of kidney Condition is:: Improved Chronic Condition is having:: Moderate exacerbation Lab Data 05/03/23 11:00 05/03/23 11:00 Labs: Lab Results 05/03/23 05/03/23 05/03/23 Range/Units 11:00 11:00 11:00 WBC 8.2 (4.5-11.0) X10^3/uL RBC 2.67 L (4.0-5.2) X10^6/uL Hgb 7.6 L (12.0-16.0) g/dL Hct 22.9 L (36-46) % MCV 85.6 (80-100) fL MCH 28.5 (26-34) PG MCHC 33.3 (30-36) % RDW 15.9 H (11.6-14.8) % Plt Count 293 (150-400) X10^3/uL Neut % (Auto) 69.5 (50-75) % Lymph % (Auto) 14.6 L (25-40) % [place] % (Auto) 6.7 (3-14) % Eos % (Auto) 8.6 H (2-4) % Baso % (Auto) 0.6 (0-2) % Neut # (Auto) 5700 (8869-8734) /uL Lymph # (Auto) 1200 (1172-0129) /uL [place] # (Auto) 500 (0-900) /uL Eos # (Auto) 700 H (0-450) /uL Baso # (Auto) 100 (0-100) /uL Sodium 134 L (137-145) mmol/L Potassium 3.4 (3.4-5.1) mmol/L Chloride 105 (98-107) mmol/L Carbon Dioxide 22 (22-32) mmol/L BUN 27 H (7-17) mg/dL Creatinine 0.70 (0.52-1.04) mg/dL Estimated GFR > 60 (>60) mL/min BUN/Creatinine Ratio 38.6 H (6-22) Glucose 81 (80-110) mg/dL Lactate 1.1 (0.7-2.1) mmol/L Calcium 8.9 (8.4-10.2) mg/dL Total Bilirubin 0.1 L (0.2-1.3) mg/dL AST 25 (14-36) IU/L ALT 17 (<35) IU/L Alkaline Phosphatase 62 (38-126) U/L Total Protein 6.7 (6.3-8.2) g/dL Albumin 3.4 L (3.5-5.0) g/dL Globulin 3.3 (1.7-4.1) g/dL Albumin/Globulin Ratio 1.0 (1.0-2.8) Lipase 156 (23-300) U/L Urine Color Urine Appearance Urine pH (4.5-8.0) Ur Specific [place] (1.000-1.035) Urine Protein (Negative) Urine Glucose (UA) (Negative) g/dL Urine Ketones (NEGATIVE) Urine Occult Blood (Negative) Urine Nitrate (Negative) Urine Bilirubin (NEGATIVE) Urine Urobilinogen (0.2) E.U./dL Ur Leukocyte Esterase (NEGATIVE) Urine RBC (0-5/HPF) Urine WBC (0-5/HPF) Ur Squamous Epith Cells (0-5/HPF) Urine Bacteria (None) Ur Culture Indicated? U Opiates 300ng/mL cut (Negative) Ur Oxycodone Screen (Negative) Urine Methadone Screen (Negative) Ur Barbiturates Screen (Negative) U Tricyclic Antidepress (Negative) Ur Phencyclidine Scrn (Negative) Ur Amphetamines Screen (Negative) U Methamphetamines Scrn (Negative) Ur MDMA Scrn (Ecstasy) (Negative) U Benzodiazepines Scrn (Negative) Urine Cocaine Screen (Negative) U Marijuana (THC) Screen (Negative) 05/03/23 05/03/23 Range/Units 11:50 11:50 WBC (4.5-11.0) X10^3/uL RBC (4.0-5.2) X10^6/uL Hgb (12.0-16.0) g/dL Hct (36-46) % MCV (80-100) fL MCH (26-34) PG MCHC (30-36) % RDW (11.6-14.8) % Plt Count (150-400) X10^3/uL Neut % (Auto) (50-75) % Lymph % (Auto) (25-40) % [place] % (Auto) (3-14) % Eos % (Auto) (2-4) % Baso % (Auto) (0-2) % Neut # (Auto) (9428-8575) /uL Lymph # (Auto) (4112-0884) /uL [place] # (Auto) (0-900) /uL Eos # (Auto) (0-450) /uL Baso # (Auto) (0-100) /uL Sodium (137-145) mmol/L Potassium (3.4-5.1) mmol/L Chloride (98-107) mmol/L Carbon Dioxide (22-32) mmol/L BUN (7-17) mg/dL Creatinine (0.52-1.04) mg/dL Estimated GFR (>60) mL/min BUN/Creatinine Ratio (6-22) Glucose (80-110) mg/dL Lactate (0.7-2.1) mmol/L Calcium (8.4-10.2) mg/dL Total Bilirubin (0.2-1.3) mg/dL AST (14-36) IU/L ALT (<35) IU/L Alkaline Phosphatase (38-126) U/L Total Protein (6.3-8.2) g/dL Albumin (3.5-5.0) g/dL Globulin (1.7-4.1) g/dL Albumin/Globulin Ratio (1.0-2.8) Lipase (23-300) U/L Urine Color Yellow Urine Appearance Clear Urine pH 6.5 (4.5-8.0) Ur Specific [place] <=1.005 (1.000-1.035) Urine Protein Trace H (Negative) Urine Glucose (UA) Negative (Negative) g/dL Urine Ketones Negative (NEGATIVE) Urine Occult Blood 2+ H (Negative) Urine Nitrate Negative (Negative) Urine Bilirubin Negative (NEGATIVE) Urine Urobilinogen 0.2 (0.2) E.U./dL Ur Leukocyte Esterase Negative (NEGATIVE) Urine RBC 5-10/hpf H (0-5/HPF) Urine WBC 0-1/hpf (0-5/HPF) Ur Squamous Epith Cells 0-1 /hpf (0-5/HPF) Urine Bacteria None seen (None) Ur Culture Indicated? Cult not indicated U Opiates 300ng/mL cut Positive H (Negative) Ur Oxycodone Screen Negative (Negative) Urine Methadone Screen Negative (Negative) Ur Barbiturates Screen Negative (Negative) U Tricyclic Antidepress Negative (Negative) Ur Phencyclidine Scrn Negative (Negative) Ur Amphetamines Screen Negative (Negative) U Methamphetamines Scrn Negative (Negative) Ur MDMA Scrn (Ecstasy) Negative (Negative) U Benzodiazepines Scrn Positive H (Negative) Urine Cocaine Screen Negative (Negative) U Marijuana (THC) Screen Positive H (Negative) Point of care testing: Urine Dip Bedside Urine Glucose Negative Bedside Urine Bilirubin - Negative Bedside Urine Ketone - Negative Urine Specific [place] 1.010 Bedside Urine Occult Blood +++ Bedside Urine pH 6.0 Bedside Urine Protein +/- 15 Bedside Urine Urobilinogen - Negative Bedside Urine Nitrite - Negative Bedside Urine Leukocytes - Negative Esterase ECG Data Interpretation: Normal sinus rhythm at a rate of 75 beats per minute. Normal intervals. No T-wave inversions. No STEMI. Discharge Plan Departure Patient Disposition: Home Clinical Impression: Abdominal pain, Hematuria, Frequent attender of accident and emergency department Instructions: Blood in Urine, DI for Abdominal Pain-Adult Activity Restrictions/Additional Instructions: YOUR LABORATORY WORK TODAY SHOWED SLIGHT WORSENING OF YOUR CHRONIC ANEMIA. THIS COULD BE RELATED TO FLUIDS THAT YOU RECEIVED AT YOUR PREVIOUS HOSPITAL VISIT. YOU HAD A SMALL AMOUNT OF BLOOD IN YOUR URINE, A REFERRAL TO UROLOGY HAS BEEN PROVIDED AND I HIGHLY RECOMMEND THAT YOU CALL FOR THE NEXT AVAILABLE APPOINTMENT. Prescriptions: No Action (DME) Handicap Parking Permit See Rx Instructions .Route .MEDSUPPLY Qty: 1 0RF Rx Instructions: As directed naloxone [Narcan] 4 mg/actuation spray,non-aerosol 4 mg intranasal Q3M PRN (Reason: opioid overdose) Qty: 1 0RF Rx Instructions: spray 1 dose into ONE nostril; alternate nostrils w each dose until help arrives fluticasone propionate 50 mcg/actuation spray,suspension 1 spray intranasal BID PRN (Reason: allergy symptoms) Qty: 15.8 3RF eszopiclone 1 mg tablet See Rx Instructions .ROUTE .COMPLEX Qty: 90 5RF Rx Instructions: Start with 1 tablet by mouth at bedtime. Increase daily by 1 tab up to 3 tabs at bedtime. simvastatin 40 mg tablet 40 mg PO BEDTIME Qty: 90 3RF triamcinolone acetonide 0.1 % ointment See Rx Instructions .ROUTE .COMPLEX Qty: 80 0RF Dose Instruction: apply topically daily to face and neck Rx Instructions: apply topically daily to face and neck metoprolol tartrate 25 mg tablet 25 mg PO BID Qty: 180 3RF estradiol [Estrace] 0.01 % (0.1 mg/gram) cream 1 appful vaginal DAILY Qty: 42.5 5RF Rx Instructions: for 14 days, then twice weekly as needed promethazine 25 mg tablet See Rx Instructions .ROUTE .COMPLEX Qty: 90 11RF Dose Instruction: Take 1 tablet (25 mg) by mouth four times daily As Needed for nausea and vomiting Rx Instructions: Take 1 tablet (25 mg) by mouth four times daily As Needed for nausea and vomiting potassium chloride 10 mEq tablet extended release 10 meq PO MoWeFr@0900 Qty: 90 3RF levothyroxine 112 mcg tablet 112 mcg PO DAILY Qty: 30 2RF sumatriptan succinate 100 mg tablet 100 mg PO DAILY MDD 2 tabs daily PRN (Reason: Migraines) Qty: 36 3RF aspirin 81 mg tablet,delayed release (DR/EC) 81 mg PO DAILY Qty: 90 3RF lorazepam 2 mg tablet 2 mg PO TID PRN (Reason: anxiety) Qty: 90 5RF furosemide 40 mg tablet 40 mg PO BID Qty: 180 3RF diclofenac sodium 3 % gel 1 applic topical BID Qty: 100 5RF diclofenac sodium 1 % gel 2 g topical QID Qty: 100 3RF Rx Instructions: apply to single elbow, wrist or hand; for hand includes palm/fingers/back of hand pantoprazole [Protonix] 20 mg tablet,delayed release (DR/EC) 20 mg PO BID Qty: 180 3RF albuterol sulfate [ProAir HFA] 90 mcg/actuation HFA aerosol inhaler 2 puff inhalation Q6H PRN (Reason: shortness of breath or wheezing) Qty: 6.7 11RF losartan 25 mg tablet 25 mg PO DAILY Vaz[place] 81 mg capsule 81 mg PO DAILY Linzess 145 mcg capsule 145 mcg PO DAILY potassium chloride 10 mEq tablet,ER particles/crystals 10 meq PO DAILY aripiprazole [Abilify] 10 mg tablet 10 mg PO BEDTIME Qty: 30 2RF magnesium oxide 400 mg (241.3 mg magnesium) Tablet 800 mg PO DAILY Qty: 30 0RF baclofen 10 mg tablet 10 mg PO TID PRN (Reason: muscle spasms) Rx Instructions: TAKE ONE TABLET BY MOUTH THREE TIMES DAILY Referrals: Cj Moncada MD [Non-Staff] - Aldo Tristan DO [Primary Care Provider] - Stand Alone Forms: Patient Portal/API
[2023-05-03 11:17] LABS: Add Manual Diff / Slide Review NO; Basophils Absolute Auto 100 /uL (0-100); Basophils Percent Auto 0.6 % (0-2); Eosinophils Absolute Auto 700 /uL (0-450); Eosinophils Percent Auto 8.6 % (2-4); Hematocrit 22.9 % (36-46); Hemoglobin 7.6 g/dL (12.0-16.0); Lymphocytes Absolute Auto 1200 /uL (1100-4500); Lymphocytes Percent Auto 14.6 % (25-40); Mean Corpuscular HGB Conc 33.3 % (30-36); Mean Corpuscular Hemoglobin 28.5 PG (26-34); Mean Corpuscular Volume 85.6 fL (80-100); Monocytes Absolute Auto 500 /uL (0-900); Monocytes Percent Auto 6.7 % (3-14); Neutrophils Absolute Auto 5700 /uL (1500-7000); Neutrophils Percent Auto 69.5 % (50-75); Platelet Count 293 X10^3/uL (150-400); Red Blood Cell Count 2.67 X10^6/uL (4.0-5.2); Red Cell Distribution Width 15.9 % (11.6-14.8); White Blood Cell Count 8.2 X10^3/uL (4.5-11.0)
[2023-05-03] MEDS: MORPHINE 4 MG/ML INJ IV (11:18)
[2023-05-03] MEDS: diphenhydrAMINE 50 MG/ML VIAL 25 MG IV (11:18)
[2023-05-03] MEDS: methylPREDNISolone 125 MG/2 ML VIAL IV (11:20)
[2023-05-03 11:25] LABS: Alanine Aminotransferase 17 IU/L (<35); Albumin 3.4 g/dL (3.5-5.0); Alkaline Phosphatase 62 U/L (38-126); Aspartate Aminotransferase 25 IU/L (14-36); BUN Creatinine Ratio 38.6 (6-22); Bilirubin Total 0.1 mg/dL (0.2-1.3); Blood Urea Nitrogen 27 mg/dL (7-17); Calcium 8.9 mg/dL (8.4-10.2); Carbon Dioxide 22 mmol/L (22-32); Chloride 105 mmol/L (98-107); Estimated Glomerular Filt Rate > 60 mL/min (>60); Globulin 3.3 g/dL (1.7-4.1); Glucose 81 mg/dL (80-110); HEMOLYSIS < 15 (0-50); Lactate (Lactic Acid) 1.1 mmol/L (0.7-2.1); Lipase 156 U/L (23-300); Potassium 3.4 mmol/L (3.4-5.1); Sodium 134 mmol/L (137-145); Total Protein 6.7 g/dL (6.3-8.2)
[2023-05-03] MEDS: SODIUM CHLORIDE 0.9% 1,000 ML 1000 ML IV (13:36)
--- NOTE | 2023-05-03 13:37 | PC.NURSE ---
Pt received 500ml NS per Dr Yeung's order.
[2023-05-03 14:06] LABS: Appearance Urine UA CLEAR; Bilirubin Urine UA NEGATIVE (NEGATIVE); Color Urine UA YELLOW; Glucose Urine UA NEGATIVE (Negative); Ketones Urine UA NEGATIVE (NEGATIVE); Leukocyte Esterase Urine UA NEGATIVE (NEGATIVE); Nitrite Urine UA NEGATIVE (Negative); Occult Blood Urine UA 2+ (Negative); Protein Urine UA TRACE (Negative); Specific Gravity Urine UA <=1.005 (1.000-1.035); Urobilinogen Urine UA 0.2 E.U./dL (0.2)
[2023-05-03 14:07] LABS: UR Morphine/Opiate cutoff 300 Positive (Negative); Ur Creatinine Normal (Normal); Ur Specific Gravity Normal (Normal); Urine Amphetamines Negative (Negative); Urine Cocaine Negative (Negative); Urine Methamphetamines Negative (Negative); Urine Phencyclidine Negative (Negative); Urine Tetrahydrocannabinol Positive (Negative); Urine pH Normal (Normal)
[2023-05-03 14:08] LABS: Urine Barbiturates Negative (Negative); Urine Benzodiazepines Positive (Negative); Urine MDMA Negative (Negative); Urine Methadone Negative (Negative); Urine Oxycodone Negative (Negative); Urine Tricyclic Antidepressant Negative (Negative)
[2023-05-03 14:13] LABS: Bacteria Urine None Seen; Culture Indicated Urine Cult Not Indicated; RBC Urine 5-10/HPF (0-5/HPF); Squamous Epithelial Cell Urine 0-1 /HPF (0-5/HPF); WBC Urine 0-1/HPF (0-5/HPF); pH Urine UA 6.5 (4.5-8.0)
== END 2023-05-03 14:13 | disposition home or self-care (01) ==
PROVIDERS: Emergency Provider Emergency Medicine; Family Provider Family Medicine; PCP Family Medicine
DX: R10.30 Lower abdominal pain, unspecified (principal); R31.9 Hematuria, unspecified
CPT/HCPCS: 36415; 74177; 80053; 80305; 81001; 81003; 83605; 83690; 85025; 93005; 96374; 96375; 99284; J1200; J2270; J2930; Q9967

== ENCOUNTER → 2023-05-24 13:44 | Outpatient (CLI) | payer MEDICARE, MEDICAID, SELFPAY ==
[2021-11-10 13:44] VITALS: BMI 22.4
[2023-05-24 15:56] LABS: Thyroid Stimulating Hormone < 0.015 uIU/mL (0.47-4.68)
[2023-05-24 17:15] LABS: Appearance Urine UA CLEAR; Bilirubin Urine UA NEGATIVE (NEGATIVE); Color Urine UA YELLOW; Glucose Urine UA NEGATIVE (Negative); Ketones Urine UA NEGATIVE (NEGATIVE); Leukocyte Esterase Urine UA NEGATIVE (NEGATIVE); Nitrite Urine UA NEGATIVE (Negative); Occult Blood Urine UA 1+ (Negative); Protein Urine UA NEGATIVE (Negative); Urobilinogen Urine UA 0.2 E.U./dL (0.2)
[2023-05-24 17:30] LABS: Bacteria Urine None Seen; Culture Indicated Urine Cult Not Indicated; RBC Urine 5-10/HPF (0-5/HPF); Squamous Epithelial Cell Urine 1-5 /HPF (0-5/HPF); WBC Urine 0-1/HPF (0-5/HPF); pH Urine UA 5.5 (4.5-8.0)
== END ==
PROVIDERS: Physician Assistant; Family Provider Family Medicine; PCP Family Medicine; Referring Provider Family Medicine; Visit Provider Family Medicine
DX: E03.9 Hypothyroidism, unspecified (principal); R35.0 Frequency of micturition
CPT/HCPCS: 36415; 81001; 84439; 84443